=== PATIENT | female | born 1965 | race Caucasian/White ===

== ENCOUNTER 2016-11-08 15:45 | Inpatient (IN) | payer OTHER ==
[~2016-11-08] VITALS: Ht 162.6 cm; Wt 105.7 kg
--- NOTE | 2016-11-08 15:51 | NUR ---
PT STATES FRIDAY SHE FELT LIKE SHE PULLED SOMETHING IN HER SHOULDER WENT TO WALK IN AND WAS TOLD SHE HAS A MUSCLE SPRAIN. PT STATES TODAY SHE IS HAVING LOWER BACK PAIN.
--- NOTE | 2016-11-08 15:55 | NUR ---
PT WHEEELED TO ROOM 20 AWAITING PROVIDER EVAL
--- NOTE | 2016-11-08 16:11 | ED NECK/BACK PAIN COMPLAINT ---
History of Present Illness General Chief Complaint: Low Back Pain/Injury Stated Complaint: BACK PAIN Source: patient Exam Limitations: no limitations Vital Signs & Intake/Output Vital Signs & Intake/Output Vital Signs Date Time Temp Pulse Resp B/P B/P Pulse O2 O2 Flow FiO2 Mean Ox Delivery Rate 11/08 2331 97.5 73 20 140/88 93 Nasal 2.0L Cannula 11/08 2150 96.8 78 20 141/73 92 Nasal 2.0L Cannula 11/08 1920 97.6 88 20 134/73 92 Room Air 11/08 1846 97.1 86 18 149/90 99 11/08 1552 97.3 92 18 161/80 92 Room Air ED Intake and Output 11/09 0000 11/08 1200 Intake Total Output Total Balance Patient 233 lb Weight Weight Reported by Patient Measurement Method Allergies Coded Allergies: No Known Allergies (11/08/16) Reconcile Medications Amlodipine Besylate 5 MG TABLET 1 TAB PO DAILY HTN (Reported) Levothyroxine Sodium 50 MCG TABLET 1 TAB PO DAILY THYROID (Reported) Lisinopril 10 MG TABLET 1 TAB PO DAILY HTN (Reported) Naproxen Sodium 550 MG TABLET 1 TAB PO BID PAIN (Reported) Triage Note: PT STATES FRIDAY SHE FELT LIKE SHE PULLED SOMETHING IN HER SHOULDER WENT TO WALK IN AND WAS TOLD SHE HAS A MUSCLE SPRAIN. PT STATES TODAY SHE IS HAVING LOWER BACK PAIN. Triage Nurses Notes Reviewed? yes Onset: Gradual Duration: getting worse Timing: recent history Quality/Severity: severe Loss of Consciousness: no loss of consciousness HPI: Patient is a 51-year-old female with past medical history of hypothyroidism and hypertension who presents emergency room stating that on Friday 5 days ago patient was in the seated position reaching with her right upper extremity where she noted acute onset of right lateral neck and thoracic pain. Patient states that the pain was so severe that she presented to urgent care facility received chest x-ray findings with unremarkable results. Patient has been taking Naprosyn with no relief of symptoms. Patient now complains of radiating pain to the right side of her back and around her right rib region. Patient states that lumbar spine movements and deep inhalation make worse. Patient does smoke cigarettes. Denies any fever chills hemoptysis, Arm pain jaw pain anterior chest pain palpitations jaw pain diaphoresis nausea vomiting. Patient does state that the pain was so severe that it took her breath away Patient does admit to a cough however she does smoke (RALPH DELGADO) Past History Travel History Traveled to [place] past 21 day No Medical History Any Pertinent Medical History? see below for history Neurological: NONE EENT: NONE Cardiovascular: hypertension Respiratory: NONE Gastrointestinal: NONE Hepatic: NONE Renal: NONE Musculoskeletal: NONE Psychiatric: NONE Endocrine: hypothyroidism Blood Disorders: NONE Cancer(s): NONE ROSTER CLERK/Reproductive: NONE Surgical History Surgical History: non-contributory Psychosocial History What is your primary language [place]ib[place]ian Tobacco Use: Current Daily Use Daily Tobacco Use Amount/Type: => 5 Cigarettes daily ETOH Use: occasional use Illicit Drug Use: marijuana Family History Hx Contributory? No (RALPH DELGADO) Review of Systems Review of Systems Constitutional: Reports: no symptoms. Eyes: Reports: no symptoms. Ears, Nose, Throat, Mouth: Reports: no symptoms. Respiratory: Reports: see HPI. Denies: cough. Cardiovascular: Reports: see HPI. Gastrointestinal/Abdominal: Reports: no symptoms. Musculoskeletal: Reports: see HPI. Skin: Reports: no symptoms. Neurological/Psychological: Reports: no symptoms. All Other Systems: Reviewed and Negative (RALPH DELGADO) Physical Exam Physical Exam General Appearance: mild distress Neck: normal inspection, supple Comments: HEENT: Normal EENT exam, Neck: Supple, no lymphadenopathy, normal range of motion without pain or tenderness Back: NORMAL INSPECTION Cardiovascular: Regular rate and rhythms no murmurs rubs or gallops, normal JVP Respiratory: No respiratory distress.breath sounds clear to auscultation bilaterally Abdomen: Soft, nontender nondistended, no appreciable organomegaly. Normal bowel sounds. No ascites Extremity: No edema, no calf tenderness to palpation, normal and equal pulses. Neuro: Alert oriented x3, motor sensory normal, Skin: No appreciable rash on exposed skin, skin is warm and dry. Psych: Mood and affect is normal, memory and judgment is normal. Diagram Body: 1) Normal inspection, intercostal moderate point tenderness to the posterior and lateral ribs. Clear lungs to auscultation (RALPH DELGADO) Progress Differential Diagnosis: C spine injury, carotid dissection, cauda equina syn, herniated disc, myofascial strain, pyelo/UTI, sciatica, spinal cord inj, thoracic outlet syn, T/L spine injury, ureterolithiasis Plan of Care: Orders Procedure Date/time Status Heart Healthy Diet 11/09 B Active CBC WITHOUT DIFFERENTIAL 11/09 0600 Active BASIC ELECTROLYTES PLUS BUN&CR 11/09 0600 Active STREP PNEUMO URINARY ANTIGEN 11/08 2352 Active LEGIONELLA URINARY ANTIGEN 11/08 2352 Active Add-on Test (ER Only) 11/08 2250 Active TRC EVALUATION (GEN) 11/08 224 Active OXYGEN SETUP (GEN) 11/08 224 Active Pathway - chart 11/08 2248 Active House Staff 11/08 2248 Active Patient Data 11/08 2110 Active LOWER RESPIRATORY CULTURE 11/08 2012 Active Saline Lock 11/08 2000 Active Misc Message 11/08 2000 Active ED Holding Orders 11/08 2000 Active Vital Signs 11/08 2000 Active Code Status 11/08 2000 Active Admit to inpatient 11/09 1999 Active Add-on Test (ER Only) 11/08 1950 Active CULTURE,URINE 11/08 1800 Active BLOOD CULTURE 11/08 1800 Active URINALYSIS 11/08 1800 Complete THYROID STIMULATING HORMONE 11/08 1640 Complete PARTIAL THROMBOPLASTIN TIME 11/08 1640 Complete PROTHROMBIN TIME 11/08 1640 Complete LACTIC ACID 11/08 1640 Complete FREE T4 11/08 1640 Complete TROPONIN LEVEL 11/08 1622 Complete COMPREHENSIVE METABOLIC PANEL 11/08 1622 Complete CBC WITHOUT DIFFERENTIAL 11/08 1622 Complete EKG 11/08 1622 Active Intake & Output 11/08 1617 Active CHEST PHYSICAL THERAPY (GEN) 11/08 UNK Active VTE Mechanical Prophylaxis 11/08 UNK Active Vital Signs 11/08 UNK Active Current Medications Sig/Cherry Start time Last Medication Dose Stop Time Status Admin Azithromycin 500 MG Q24H 11/09 2044 AC (Zithromax) Sodium Chloride 250 ML (Normal Saline 0.9%) Ceftriaxone Sodium 1,000 MG Q24H 11/09 2044 AC (Rocephin) Amlodipine Besylate 5 MG DAILY 11/09 1000 AC (Norvasc) Lisinopril 10 MG DAILY 11/09 1000 AC (Prinivil) Levothyroxine Sodium 0.05 MG DAILY AC 11/09 0700 AC (Synthroid) Acetaminophen 650 MG Q6P PRN 11/08 2300 AC (Tylenol) Ibuprofen 600 MG Q6P PRN 11/08 2300 AC (Motrin) Morphine Sulfate 1 MG Q6P PRN 11/08 2300 AC (Morphine) Laboratory Tests 11/08/16 2300: Urine Color YEL, Urine Clarity CLEAR, Urine pH 5.5, Ur Specific [place] 1.010, Urine Protein 30 H, Urine Ketones 15 H, Urine Nitrite NEG, Urine Bilirubin NEG , Urine Urobilinogen 1.0, Ur Leukocyte Esterase NEG, Ur Microscopic SEDIMENT EXAMINED, Urine RBC RARE, Urine WBC 1-3 H, Ur Epithelial Cells FEW, Urine Bacteria RARE H, Urine Hemoglobin TRACE H, Urine Glucose NEG 11/08/16 1640: Anion Gap 15, Estimated GFR > 60, BUN/Creatinine Ratio 16.3, Glucose 128 H, Lactic Acid 1.2, Calcium 10.1, Total Bilirubin 1.4 H, AST 19, ALT 30, Alkaline Phosphatase 69, Troponin I < 0.01, Total Protein 7.1, Albumin 4.3, Globulin 2.8, Albumin/Globulin Ratio 1.5, TSH 3.570, Free T4 1.71, PT 14.1 H, INR 1.35 H, APTT 32, CBC w Diff MAN DIFF ORDERED, RBC 5.22, MCV 84.8, MCH 28.5, RDW 13.9, MPV 8.6, Gran % 88.1 H, Lymphocytes % 4.9 L, Monocytes % 6.9, Eosinophils % 0, Basophils % 0.1, Absolute Granulocytes 22.3 H, Segmented Neutrophils 83 H, Band Neutrophils 5, Absolute Lymphocytes 1.2, Lymphocytes 8 L, Monocytes 4, Absolute Monocytes 1.8 H, Absolute Eosinophils 0, Absolute Basophils 0, Platelet Estimate ADEQUATE, Normal RBC Morphology N, PUBS MCHC 33.5 Microbiology 11/09 2351 URINE ROUT: Legionella Antigen - ORD 11/09 2351 URINE ROUT: Streptococcus pneumoniae Antigen (M - ORD 11/08 2300 URINE ROUT: Urine Culture - RECD 11/08 2012 LOWER RESP: Respiratory Culture - ORD 11/08 2012 LOWER RESP: Gram Stain - ORD 11/08 182 BLOOD: Blood Culture - RECD 11/09 1819 BLOOD: Blood Culture - RECD Patient was given intramuscular morphine which significantly improved symptoms. Patient again resting comfortably at bedside. MY suspicion of patient FOR myocardial is low however evaluation of blood work and EKG and chest x-ray was provided to patient Patient did show significantly high 25,[address] scan of chest nontender and was ordered blood cultures and urine culture was ordered After CT scan was resulted there is concerns of significant pneumonia which most likely has caused the pleural effusion and the near complete lung collapse. Patient did have exacerbations of right-sided rib pain where she was administered dosing of morphine over patient subsequently became nauseous the second EPISODE of morphine Patient is in no respiratory distress. Discussed CT scan results and blood work with patient who agrees with admission and has no questions Patient will receive IV antibiotics and will most likely require a interventional radiology guided thoracocentesis for therapy and diagnostic value (RALPH DELGADO) Diagnostic Imaging: Viewed by Me: Radiology Read, CT Scan. Radiology Impression: acute abnormality Initial ED EKG: normal p-waves, normal QRS complex, normal sinus rhythm, NSR, 83 BPM Comments: PATIENT: CAROLINE SAM PRESENT AGE: 51 PATIENT ACCOUNT NO: [id number] : 64 LOCATION: [facility] ORDERING PHYSICIAN: RALPH WHARTON SERVICE DATE: 11/08/16 EXAM TYPE: RAD - XRY-RIBS UNILATERAL-RIGHT EXAMINATION: XR RIBS, RIGHT CLINICAL INFORMATION: Right-sided pain. COMPARISON: None TECHNIQUE: 3 views of the right ribs were obtained. FINDINGS: Heart appears mildly enlarged. Lung volumes are diminished. Patchy opacities in the bilateral lung bases right side greater than left, likely atelectasis. There is a [id number] sized right-sided pleural effusion. Left lung and pleural space appears clear. There is no pneumothorax. There is no pulmonary edema. Although mild edema is not excluded. Included osseous structures appear largely unremarkable. Osseous structures are unremarkable. Ribs are intact. No fractures are identified. There are postsurgical changes in the lower cervical spine. IMPRESSION: Low lung volumes with basilar atelectasis with right-sided effusion. No fractures are seen. DICTATED BY: DEONTE SHELBY MD DATE/TIME DICTATED:11/08/161656 RACK PUSHER:JADE (RALPH DELGADO) Departure Departure Disposition: STILL A PATIENT Condition: Stable Clinical Impression Primary Impression: Pneumonia Secondary Impressions: Lung collapse, Pleural effusion, Rib pain Referrals: HANK ALVES MD (PCP/Family) Departure Forms: Customer Survey General Discharge Information Admission Note Spoke With: ROBBIE BOWMAN MD Documentation of Exam: Documentation of any treatments & extenuating circumstances including Concerns Regarding Discharge (functional status, medication knowledge or non-compliance, living conditions, etc.) that warrant an admission rather than observation: [ DISCUSSED PT WITH DR. BOWMAN WHO AGREES WITH GEN MED ADMISSION FOR significant pneumonia and pleural effusion and lung collapse in which patient requires IV antibiotics, pain management, thoracocentesis repeat labs and outpatient treatment would be medically harmful] (ARNULFO WHARTON,RALPH) PA/ELECTRONIC PUBLISHING SPECIALIST Co-Sign Statement Statement: ED Attending supervision documentation- [] I saw and evaluated the patient. I have also reviewed all the pertinent lab results and diagnostic results. I agree with the findings and the plan of care as documented in the PA's/ELECTRONIC PUBLISHING SPECIALIST's documentation. [x] I have reviewed the ED Record and agree with the PA's/ELECTRONIC PUBLISHING SPECIALIST's documentation. [] Additions or exceptions (if any) to the PAs/ELECTRONIC PUBLISHING SPECIALIST's note and plan are summarized below: [] (RAFAEL HER,POLLY Hollins)
--- NOTE | 2016-11-08 16:15 | NUR ---
AKIKO ARREDONDO AT BEDSIDE TO EVAL PT
--- NOTE | 2016-11-08 16:26 | NUR ---
PT LEFT FOR RADIOLOGY REQUESTED TO AMBULATE
--- NOTE | 2016-11-08 16:32 | NUR ---
PT BACK FROM RADIOLOGY, LABS TO BE DRAWN
--- NOTE | 2016-11-08 16:47 | NUR ---
PT MEDICATED ORDERED
[2016-11-08 17:02] LABS: ABSOLUTE BASOPHIL COUNT 0 /CUMM (0.0-0.2); ABSOLUTE EOSINOPHIL COUNT 0 /CUMM (0.0-0.7); ABSOLUTE GRANULOCYTE CT 22.3 /CUMM (1.4-6.5); ABSOLUTE LYMPH COUNT 1.2 /CUMM (1.2-3.4); ABSOLUTE MONOCYTE COUNT 1.8 /CUMM (0.10-0.60); BASOPHIL % 0.1 % (0.0-2.0); EOSINOPHIL % 0 % (0-5); GRANULOCYTE % 88.1 % (42.2-75.2); HEMATOCRIT 44.3 % (37-47); MEAN CORPUSCULAR HGB 28.5 PG (27.0-31.0); MEAN CORPUSCULAR HGB CONC 33.5 G/DL (33.0-37.0); MEAN CORPUSCULAR VOLUME 84.8 FL (81.0-99.0); MEAN PLATELET VOLUME 8.6 FL (7.4-10.4); PLATELET COUNT 329 /CUMM (130-400); RBC DISTRIBUTION WIDTH 13.9 % (11.5-14.5); RED BLOOD CELL CT 5.22 /CUMM (4.20-5.40); WHITE BLOOD CELL COUNT 25.3 /CUMM (4.8-10.8)
--- NOTE | 2016-11-08 17:17 | RADIOLOGY REPORT ---
EXAMINATION: XR RIBS, RIGHT CLINICAL INFORMATION: Right-sided pain. COMPARISON: None TECHNIQUE: 3 views of the right ribs were obtained. FINDINGS: Heart appears mildly enlarged. Lung volumes are diminished. Patchy opacities in the bilateral lung bases right side greater than left, likely atelectasis. There is a [id number]-oklwmync sized right-sided pleural effusion. Left lung and pleural space appears clear. There is no pneumothorax. There is no pulmonary edema. Although mild edema is not excluded. Included osseous structures appear largely unremarkable. Osseous structures are unremarkable. Ribs are intact. No fractures are identified. There are postsurgical changes in the lower cervical spine. IMPRESSION: Low lung volumes with basilar atelectasis with right-sided effusion. No fractures are seen.
[2016-11-08] MEDS ORDERED: NAPROXEN SODIU550 M1 PO (17:34)
--- NOTE | 2016-11-08 17:34 | NUR ---
PT STS STIL TENDER BUT TOLERABLE AT PRESENT
[2016-11-08] MEDS ORDERED: AMLODIPINE BESYL5 M1 PO (17:35)
[2016-11-08] MEDS ORDERED: LISINOPRIL10 M1 PO (17:35)
[2016-11-08] MEDS ORDERED: LEVOTHYROXINE50 MCG PO (17:35)
--- NOTE | 2016-11-08 17:40 | NUR ---
PT HAD INITINALLY REFUSED TO CHANGE INTO [place] AND NOW THAT SHE WAS MADE AWARE THAT SHE WILL BE ADMITTED SHE INSIST TO STAY IN [place]. PA WAS INFORMED AND OK FOR NOW
--- NOTE | 2016-11-08 19:20 | NUR ---
PT MEDICATED ORDERED NOTED TO BE DIAPHORETIC BUT NOT FEVERISH PT STS SHE IS PRE MENOPAUSAL
--- NOTE | 2016-11-08 19:23 | CT SCAN REPORT ---
EXAMINATION: CT CHEST abdomen and pelvis WITH CONTRAST CLINICAL INFORMATION: Right-sided chest pain and cough. COMPARISON: None. TECHNIQUE: Multidetector volumetric CT imaging of the chest abdomen and pelvis was obtained after the uneventful intravenous administration of 94 mL of Optiray 320 intravenous contrast without immediate adverse reactions. Axial MIP volume rendering provided. Sagittal and coronal reformatted images were obtained. DLP: 1262 mGy-cm FINDINGS: There is elevation of the right hemidiaphragm. There is a large right-sided pleural effusion with associated near-complete right lower lobe collapse, moderate right middle lobe collapse, and a lesser degree of right upper lobe collapse. Underlying infiltrate is not excluded. Clinical correlation recommended. No central obstructing mass is seen. There is a 6 mm indeterminate noncalcified right upper lobe pulmonary nodule image 21 series 2. There is no lower cervical, mediastinal, or hilar lymphadenopathy identified. By size criteria although there are multiple small mediastinal lymph nodes, the largest just anterior to the trachea above the bifurcation measuring 8 mm short axis dimension. A similar sized subcarinal node is identified with a few other scattered smaller nodes. 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 There is diffuse hepatic steatosis. The spleen, pancreas, gallbladder, kidneys and adrenal glands appear unremarkable. There is a small sliding hiatal hernia suggested. Ligament of Treitz is in its normal anatomic location. Small bowel appears unremarkable. There are postsurgical changes suggesting a previous segmental resection of the sigmoid colon with a few scattered sigmoid colon diverticula and a distal descending colon diverticula without evidence of acute diverticulitis. The cecum is on a long mesentery situated anterior to the transverse colon above the level of the umbilicus and just inferior to the lower portion of the right lower liver. The appendix is not definitively identified, however I see no evidence of an acute appendicitis. There is a small to moderate-sized periumbilical hernia to the left of midline containing only mesenteric fat. There is no intraperitoneal free fluid, lymphadenopathy, or inguinal hernias. Uterus and adnexa appear unremarkable for the patient's age. No aggressive osseous lesions are seen. Patient is status post instrumented fusion lower cervical region. There is mild spondylosis. IMPRESSION: 1. Right-sided pleural effusion with near-complete right lower lobe collapse. Moderate right middle lobe collapse, and mild right upper lobe collapse. Effusion is indeterminate in etiology. 2. Indeterminate solitary 6 mm pulmonary nodules, other nodules in the collapsed portions of the right lung are not excluded. 3. Small indeterminate mediastinal nodes. 4. Hepatic steatosis. 5. Colonic diverticulosis. 6. Wandering cecum. 7. Periumbilical hernia. 8. Otherwise largely unremarkable exam. Reference: The Fleischner Society recommendations for management of incidentally detected pulmonary nodules in adults age 35 and greater are based on average nodule size and patient risk category. The recommendations do not apply to lung cancer screening, patients with immunosuppression, or patients with known primary cancer. Single solid nodule average size < 6 mm: Low Risk Patient: No routine follow-up. High Risk Patient: Optional CT at 12 months. Certain patients at high risk with suspicious nodule morphology, upper lobe location, or both may warrant 12-month follow-up. Single solid nodule average size 6-8 mm: Low Risk Patient: CT at 6-12 months; then consider CT at 18-24 months. High Risk Patient: CT at 6-12 months, then CT at 18-24 months. Certain patients at high risk with suspicious nodule morphology, upper lobe location, or both may warrant 12-month follow-up.
--- NOTE | 2016-11-08 19:30 | NUR ---
PT FEELING NAUSEOUS. AKIKO ROSAS S AWARE.
--- NOTE | 2016-11-08 19:46 | NUR ---
AKIKO Meneses AT BEDSIDE TO REEVAL AND UPDATE PT ON POC
[2016-11-08 20:31] LABS: PT 14.1 SEC (9.4-12.5); PTT 32 SEC (25-37)
--- NOTE | 2016-11-08 21:00 | NUR ---
PT MEDICATED ORDERED AHS IV NS AND ZITHRO
--- NOTE | 2016-11-08 21:16 | History & Physical ---
DORIS HER,[facility] 11/08/162114: General Information and HPI MD Statement: I have seen and personally examined CAROLINE SAM and documented this H&P. The patient is a 51 year old F who presented with a patient stated chief complaint of [low back pain]. Source of Information: patient Exam Limitations: no limitations History of Present Illness: Ms. Sam is 51 year old female with past medical history significant for hypertension, hypothyroidism, current smoker, right ear nerve deafness, diverticulitis status post colon resection who presented to ED with chief complaint of low back pain. Patient reported that on last Friday while she was trying to reach out to something had sudden onset of sharp pain over the left shoulder blade, went to walk-in clinic and had chest x-ray that didn't reveal any fracture or intrathoracic abnormality and was discharged on naproxen. Patient reported that symptoms presist, pain move to bilateral low back constant increased in intensity sometimes to be sharp 5-7 associated with shortness of breath on rest to level disturb her talking in full sentences or walking, pleuritic pain, night sweats, productive cough of clear sputum denied blood. Patient denied any chest pain, palpitation, fever, chills, headache, blurry vision, abdominal pain, nausea or vomiting, diarrhea or constipation, unintentional weight loss. Denied any history of sick contact, history of travels. Patient reported history of sinusitis 1 month ago that was treated with Augmentin, reported ear fullness sensation over the last month, denied any flulike symptoms. Patient is a current smoker, started smoking at age 16, 10-12 cigarettes per day. Allergies/Medications Allergies: Coded Allergies: No Known Allergies (11/08/16) Home Med list Amlodipine Besylate 5 MG TABLET 1 TAB PO DAILY HTN (Reported) Levothyroxine Sodium 50 MCG TABLET 1 TAB PO DAILY THYROID (Reported) Lisinopril 10 MG TABLET 1 TAB PO DAILY HTN (Reported) Naproxen Sodium 550 MG TABLET 1 TAB PO BID PAIN (Reported) Past History Travel History Traveled to [place] past 21 day No Medical History Neurological: NONE EENT: NONE Cardiovascular: hypertension Respiratory: NONE Gastrointestinal: NONE Hepatic: NONE Renal: NONE Musculoskeletal: NONE Psychiatric: NONE Endocrine: hypothyroidism Blood Disorders: NONE Cancer(s): NONE GENERAL PRACTITIONER/Reproductive: NONE Surgical History Surgical History: non-contributory, colon resection clavicle fusion Past Family/Social History Psychosocial History ETOH Use: occasional use Illicit Drug Use: marijuana Review of Systems Review of Systems Constitutional: Reports: see HPI. Exam & Diagnostic Data Last 24 Hrs of Vital Signs/I&O Vital Signs Date Time Temp Pulse Resp B/P B/P Pulse O2 O2 Flow FiO2 Mean Ox Delivery Rate 11/08 2331 97.5 73 20 140/88 93 Nasal 2.0L Cannula 11/08 2150 96.8 78 20 141/73 92 Nasal 2.0L Cannula 11/08 1920 97.6 88 20 134/73 92 Room Air 11/08 1846 97.1 86 18 149/90 99 11/08 1552 97.3 92 18 161/80 92 Room Air Intake & Output 11/09 0800 11/09 0000 11/08 1600 Intake Total Output Total Balance Patient 105.687 kg Weight Weight Reported by Patient Measurement Method Physical Exam General Appearance Alert, Oriented X3, Cooperative, No Acute Distress Skin No Rashes, No Breakdown, No Significant Lesion Skin Temp/Moisture Exam: Warm/Dry HEENT Atraumatic, PERRLA, EOMI, Mucous Membr. moist/pink Neck Supple, No JVD Lymphatic no cervical lymphadenopathy Cardiovascular Regular Rate, Normal S1, Normal S2, No Murmurs Lungs Right 4th intercostal space dull to percusion decrease air entery of right side no wheeze or crackles Abdomen Normal Bowel Sounds, Soft, No Tenderness, No Hepatospenomegaly, No Masses, umblical hernia non tender, no skin changes, reproducable Neurological Normal Speech, Strength at 5/5 X4 Ext, Normal Tone, Sensation Intact, Cranial Nerves 3-12 NL, Reflexes 2+ Extremities No Clubbing, No Cyanosis, No Edema, Normal Pulses, No Tenderness/ Swelling Last 24 Hrs of Labs/Javon: Laboratory Tests 11/08/16 2300: Urine Color YEL, Urine Clarity CLEAR, Urine pH 5.5, Ur Specific Underwood 1.010, Urine Protein 30 H, Urine Ketones 15 H, Urine Nitrite NEG, Urine Bilirubin NEG , Urine Urobilinogen 1.0, Ur Leukocyte Esterase NEG, Ur Microscopic SEDIMENT EXAMINED, Urine RBC RARE, Urine WBC 1-3 H, Ur Epithelial Cells FEW, Urine Bacteria RARE H, Urine Hemoglobin TRACE H, Urine Glucose NEG 11/08/16 1640: Anion Gap 15, Estimated GFR > 60, BUN/Creatinine Ratio 16.3, Glucose 128 H, Lactic Acid 1.2, Calcium 10.1, Total Bilirubin 1.4 H, AST 19, ALT 30, Alkaline Phosphatase 69, Troponin I < 0.01, Total Protein 7.1, Albumin 4.3, Globulin 2.8, Albumin/Globulin Ratio 1.5, TSH 3.570, Free T4 1.71, PT 14.1 H, INR 1.35 H, APTT 32, CBC w Diff MAN DIFF ORDERED, RBC 5.22, MCV 84.8, MCH 28.5, RDW 13.9, MPV 8.6, Gran % 88.1 H, Lymphocytes % 4.9 L, Monocytes % 6.9, Eosinophils % 0, Basophils % 0.1, Absolute Granulocytes 22.3 H, Segmented Neutrophils 83 H, Band Neutrophils 5, Absolute Lymphocytes 1.2, Lymphocytes 8 L, Monocytes 4, Absolute Monocytes 1.8 H, Absolute Eosinophils 0, Absolute Basophils 0, Platelet Estimate ADEQUATE, Normal RBC Morphology N, PUBS MCHC 33.5 Microbiology 11/09 2351 URINE ROUT: Legionella Antigen - ORD 11/09 2351 URINE ROUT: Streptococcus pneumoniae Antigen (M - ORD 11/08 230 URINE ROUT: Urine Culture - RECD 11/08 2012 LOWER RESP: Respiratory Culture - ORD 11/08 2012 LOWER RESP: Gram Stain - ORD 11/08 182 BLOOD: Blood Culture - RECD 11/09 1819 BLOOD: Blood Culture - RECD Diagnostic Data EKG Results NSR, WI 140, QTC 407 CXR Results IMPRESSION: Low lung volumes with basilar atelectasis with right-sided effusion. No fractures are seen. Other Results CT Chest, abdomen, pelvis with IV contrast IMPRESSION: 1. Right-sided pleural effusion with near-complete right lower lobe collapse. Moderate right middle lobe collapse, and mild right upper lobe collapse. Effusion is indeterminate in etiology. 2. Indeterminate solitary 6 mm pulmonary nodules, other nodules in the collapsed portions of the right lung are not excluded. 3. Small indeterminate mediastinal nodes. 4. Hepatic steatosis. 5. Colonic diverticulosis. 6. Wandering cecum. 7. Periumbilical hernia. 8. Otherwise largely unremarkable exam. Assessment/Plan Assessment: Ms. Sam is 51 year old female with past medical history significant for hypertension, hypothyroidism, current smoker, right ear nerve deafness, diverticulitis status post colon resection who presented to ED with chief complaint of low back pain. On admission Vital signs temperature 97.3, pulse 92, blood pressure 161/80, respiratory rate 18 saturating 92%. Pertinent WBC 25.3, H&H 14.8/44.3, platelet 329, sodium 133, potassium 5, BUN/ creatinine 13/0.8, lactic acid 1.2, INR 1.35 Chest x-ray and CT chest, abdomen and pelvis with IV contrast were obtained, please see above for results In ED, patient received morphine 6 mg, Zofran for nausea, azithromycin and ceftriaxone, 500 mL bolus of normal saline. Problem list #Community-acquired pneumonia #Right side pleural effusion #Lung collapse #Leukocytosis #Pulmonary nodules #Hypertension #Hypothyroidism #History of smoking Plan -Admit to general medical floor -IR consultation for thoracocentesis therapeutic and diagnostic -Differential diagnosis for pleural effusion (infectious, inflammatory, malignancy) complication of pneumonia given leukocytosis, symptoms such as shortness of breath, night sweats, malignancy giving history of smoking and lung nodule, hypothyroidism -Pleural fluid cytology, culture, protein, glucose, LDH -Consider obtaining serum LDH -Hold off anticoagulation, baseline INR 1.35 -TSH, free T4 -Continue ceftriaxone, azithromycin -CBC, BMP in a.m. -Vitals every shift -Continue oxygen supplementation 2 L for comfort -Pain management acetaminophen for mild pain, NSAIDs for moderate pain, morphine for severe pain -Consider lidocaine patch for persistent pain -Nicotine patch -Pulmonary consultation in a.m. -Continue amlodipine 5 mg, lisinopril 10 mg -Continue Synthroid 50 g -Right heart healthy -DVT prophylaxis Alps -Code full As Ranked By This Provider Problem List: 1. Pneumonia 2. Lung collapse 3. Rib pain 4. Pleural effusion Core Measures/Miscellaneous Acute Coronary Syndrome ACS Diagnosis: No Cerebrovascular Accident CVA/TIA Diagnosis: No Congestive Heart Failure CHF Diagnosis: No VTE (View Protocol) VTE Risk Factors: Age > 40 No [facility] VTE prophylaxis d/t: No contraindications No VTE Pharm Prophylaxis d/t: No contraindications VTE Diagnosis: No VTE Type: NONE VTE Confirmed by (Test): NONE Sepsis (View Protocol) Severe Sepsis Present: No Septic Shock Septic Shock Present: No Miscellaneous Documentation Attending Case Discussed With: ROBBIE BOWMAN MD Primary Care Physician: HANK ALVES MD Patient sees these Specialists none PCP Level of Patient Care: General Medicine JACOBO COLMENARES MD,KARRIE 06/23/17 2556: Resident Review Statement Resident Statement: examined this patient, discussed with help desk internship, agreed with help desk internship, reviewed EMR data (avail) Other Findings: 51-year-old female current smoker, with past medical history significant for hypothyroidism, history of diverticulitis status post bowel resection, hypertension, history of recurrent ear infections, came to emergency department with chief complaint of right lateral neck and thoracic pain for the last 5 days. Pain started radiating to the right side of her back and around her right rib region. Patient stated that the pain was so severe that she presented to urgent care facility and had an x-ray with unremarkable results. She was prescribed naproxen but her symptoms did not improve. Pain is pleuritic in nature and increases with movement. She also had occasional night sweats along with intentional weight loss as she's on Weight [employer]. Vitals in emergency department patient afebrile, no tachypnea, no tachycardia, systolic blood pressure ranging from 134-161 and diastolic 73-90, oxygen saturation of 90-99% on room air. On examination, patient was alert and oriented to time person and place, diaphoretic in mild distress lying in the bed. S1 and S2 audible, regular rhythm, lung examination elicited dull percussion sound, decreased air entry at the lung bases on auscultation, surgical scar lam on right side of the neck, umbilical hernia, audible bowel sounds, distended abdomen at baseline, no bilateral lower extremity edema, no JVD, grossly intact neurological examination. Labs are significant for leukocytosis white count of 25.3, bands 5, serum electrolytes showed hyponatremia 133, carbon dioxide 21, glucose 128, total bilirubin 1.4, troponin less than 0.01, INR of 1.35, UA pending, patient pancultured. EKG showed sinus rhythm heart rate in 80s, QTC 407 Ribs x-ray showed, Low lung volumes with basilar atelectasis with right-sided effusion. No fractures are seen. CT chest abdomen and pelvis with contrast showed, Right-sided pleural effusion with near-complete right lower lobe collapse. Moderate right middle lobe collapse, and mild right upper lobe collapse. Effusion is indeterminate in etiology. Indeterminate solitary 6 mm pulmonary nodules, other nodules in the collapsed portions of the right lung are not excluded. Patient was admitted on general medicine floor for the management of following problems #1 Acute hypoxemic respiratory insufficiency #2 Multilobar community-acquired pneumonia #3 Right-sided pleural effusion #4 Mild right upper lobe, moderate right middle lobe, complete right lower lobe collapse #5 Leukocytosis secondary to pneumonia Community-acquired pneumonia/right-sided pleural effusion / right lower lobe, moderate right middle lobe, mild right upper lobe lung collapse - Admit to General Medicine - Vitals q Shift - Continous pulse oximetry - Check troponin and EKG - Send sputum cultures - Follow blood cultures x 2 - Check Legionella and strep Antigen - ABxs for community-acquired PNA - Chest physical therapy - TRC nebs as needed - Tap for pleural effusion in a.m. by interventional radiology - Fluid analysis studies - Keep right side of the lung up and Left side as dependent - Pulmonology Consult History of hypertension Continue with lisinopril and amlodipine History of hypothyroidism Will check thyroid function tests to rule out one of the possible causes of effusion, continue with home dose of thyroxine Patient is full code Patient is on pain management Patient is on ALPS for DVT prophylaxis Patient is on heart healthy diet GRACIE HER, [facility] 11/09/16 0016: Attending MD Review Statement Attending Statement Attending MD Statement: examined this patient, discuss w/resident/PA/AIRPLANE TECHNICIAN, agreed w/resident/PA/AIRPLANE TECHNICIAN, discussed with family Attending Assessment/Plan: 51 yo morbidly obese F smoker, with h/o HTN, hypothyroidism, recurrent ear and sinus infections, 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 5 days ago while bending and reaching out to something, patient started having right upper back and shoulder pain. She went to an Urgent Care clinic, CXR was negative and she was advised to take naproxen for a muscle sprain. Gradually, she developed productive cough (clear phlegm), night sweats, chills, orthopnea and exertional dyspnea (I could not catch my breath). The pain radiated around right rib region, now extending to mid to lower back, worse with inspiration. Denies chest pain, palpitations, lightheadedness. Reprots intentional weight loss. Denies sick contacts or recent travel. Vitals stable, sats 92% on 2L. Exam: AAO, diaphoretic, MMM, mild distress, no lymphadenopathy, Chest dullness to percussion upto 2/3rd right sided lung chavez , with absent breath sounds, no friction rub; left sided breath sounds clear. Heart S1S2 regular. Abdomen: soft, NT, umbilical hernia+. LE: no edema. Otoscopic exam was negative. Labs: WBC 25.3, no bands, INR 1.35, Na 133, bicarb 21, glucose 128, lactic acid 1.2, T. Bili 1.4, trop neg, thyroid functions normal. UA proteinuria. EKG: SR. Ribs Xray: bibasilar atelectasis with right sided effusion, no rib fractures. CT chest: large right sided pleural effusion with near-complete RLL collapse, moderate RML collapse, and a lesser degree of RUL collapse. No obstructing mass. RUL lung nodule. 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 Mediastinal LN. CT abd/pelvis: hepatic steatosis, hiatal hernia, periumbilical hernia. 1. Large right pleural effusion with lung collapse, cannot rule out underlying consolidation. GM admit, TRC nebs, panculture, urine legionella and strep Ag, IV ceftriaxone and azithro, plan for IR guided diagnostic and therapeutic thoracentesis, Pulm consult in AM. O2 to keep sats > 92%. Smoking cessation counseling, nicotine patch. Pain management. DVT ppx Alps. Full code.
--- NOTE | 2016-11-08 22:00 | NUR ---
HOUSE STAFF AT BEDSIDE WITH PT TO EVAL PT WAS ALSO PLACED ON OXYGEN PRIOR FOR COMFORT NC 2L
--- NOTE | 2016-11-08 22:26 | NUR ---
CAROLINE SAM Nurse Note by: ISABELLE LAURA I agree with the JUICE SCALEMAN findings/evaluation of this patient's condition. Entered by: ISABELLE LAURA Date: 11/08/16 Time: 1
--- NOTE | 2016-11-08 22:36 | NUR ---
PT ASSIGNED TO ROOM 229 BED 2
--- NOTE | 2016-11-08 22:37 | NUR ---
NURSE WILL CALL ME BACK IN FEW MINUTES
--- NOTE | 2016-11-08 22:54 | NUR ---
REPORT GIVEN TO NURSE GENIE AND SHE TOOK REPORT
[2016-11-08 23:31] VITALS: BP 140/88
--- NOTE | 2016-11-09 01:58 | Admission Certification ---
Admission Certification Certification Statement - As attending physician, I certify that at the time of - admission, based on clinical presentation, severity of - symptoms, need for further diagnostic testing and - therapeutic interventions, and risk of adverse outcomes - without in-hospital treatment, in my clinical assessment, - this patient requires an acute hospital stay for a minimum - of two nights or longer. I have also considered psychsocial - factors such as support system, advanced age, financial - issues, cognitive issues, and failed out-patient treatments, - past re-admission history, safety of patient, and lack of - compliance as applicable. Specific rationale supporting this admission is: Large right sided effusion with underlying lung collapse.
[2016-11-09 06:37] VITALS: BP 130/60
[2016-11-09 08:21] LABS: ABSOLUTE BASOPHIL COUNT 0 /CUMM (0.0-0.2); ABSOLUTE EOSINOPHIL COUNT 0 /CUMM (0.0-0.7); ABSOLUTE GRANULOCYTE CT 22.8 /CUMM (1.4-6.5); ABSOLUTE LYMPH COUNT 1.1 /CUMM (1.2-3.4); ABSOLUTE MONOCYTE COUNT 2.2 /CUMM (0.10-0.60); BASOPHIL % 0.2 % (0.0-2.0); EOSINOPHIL % 0.1 % (0-5); GRANULOCYTE % 87.2 % (42.2-75.2); HEMATOCRIT 41.2 % (37-47); MEAN CORPUSCULAR HGB 28.8 PG (27.0-31.0); MEAN CORPUSCULAR VOLUME 87.2 FL (81.0-99.0); MEAN PLATELET VOLUME 9.1 FL (7.4-10.4); PLATELET COUNT 286 /CUMM (130-400); RBC DISTRIBUTION WIDTH 13.9 % (11.5-14.5); RED BLOOD CELL CT 4.72 /CUMM (4.20-5.40); WHITE BLOOD CELL COUNT 26.1 /CUMM (4.8-10.8)
--- NOTE | 2016-11-09 09:06 | PN- Housestaff ---
ROXANN ZULUAGA 11/09/16 0906: Subjective Follow-up For: #Community-acquired pneumonia #Right side pleural effusion #Lung collapse #Leukocytosis #Pulmonary nodules #Hypertension #Hypothyroidism #History of smoking Complaints: pain scale (0-10) Subjective: Patient was seen and examined this morning. She is alert awake and oriented to time place and person. No acute events noticed overnight. Patient continues to report shortness of breath. Continues to report mild chest discomfort on right side. However denies any pleuritic chest pain. Denies any fever, chills. Continues to report ongoing cough associated with sputum production. Also reports night sweats. Vitals stable afebrile, heart rate 80, respiratory rate 20, blood pressure 130/ 70, saturating at 94 on 2 L nasal cannula Review of Systems Constitutional: Reports: see HPI. Objective Last 24 Hrs of Vital Signs/I&O Vital Signs Date Time Temp Pulse Resp B/P B/P Pulse O2 O2 Flow FiO2 Mean Ox Delivery Rate 11/09 1123 Nasal 2.0L Cannula 11/09 0905 79 130/60 11/09 0905 79 130/60 11/09 0800 92 Nasal 2.0L Cannula 11/09 0637 97.6 79 20 130/60 92 Nasal 2.0L Cannula 11/09 0000 94 Nasal 2.0L Cannula 11/08 2331 97.5 73 20 140/88 93 Nasal 2.0L Cannula 11/08 2150 96.8 78 20 141/73 92 Nasal 2.0L Cannula 11/08 1920 97.6 88 20 134/73 92 Room Air 11/08 1846 97.1 86 18 149/90 99 11/08 1552 97.3 92 18 161/80 92 Room Air Intake & Output 11/09 1600 11/09 0800 11/09 0000 Intake Total 610 Output Total Balance 610 Intake, IV 10 Intake, Oral 600 Patient 105.687 kg Weight Physical Exam General Appearance: Alert, Oriented X3, Cooperative, No Acute Distress Skin: No Rashes, No Breakdown HEENT: Atraumatic, PERRLA, EOMI Neck: Supple, No JVD Lymphatic: Cervical nl Cardiovascular: Normal S1, Normal S2 Lungs: dec bs right side Abdomen: Normal Bowel Sounds, Soft, No Tenderness Extremities: No Clubbing, No Cyanosis, No Edema Vascular: Normal Pulses, Pulses Symmetrical Current Medications: Current Medications Sig/Cherry Start time Last Medication Dose Route Stop Time Status Admin Acetaminophen 650 MG Q6P PRN 11/08 2300 AC PO Albuterol Sulfate 3 ML BID 11/09 1137 AC 11/09 INH 1137 Amlodipine Besylate 5 MG DAILY 11/09 1000 AC 11/09 PO 0905 Azithromycin 500 MG Q24H 11/09 2044 AC Sodium Chloride 250 ML IV Azithromycin 500 MG ONCE ONE 11/09 1999 AR 11/08 Sodium Chloride 250 ML IV 11/08 Ceftriaxone Sodium 1,000 MG Q24H 11/09 2044 AC IV Ceftriaxone Sodium 0 .STK-MED ONE 11/08 2042 DC .ROUTE Ceftriaxone Sodium 1,000 MG ONCE ONE 11/09 1999 DC 11/08 IV 11/08 Ibuprofen 600 MG Q6P PRN 11/08 2300 AC 11/09 PO 1212 Levothyroxine Sodium 0.05 MG DAILY AC 11/09 0700 AC 11/09 PO 0518 Lisinopril 10 MG DAILY 11/09 1000 11/09 PO 0905 Morphine Sulfate 1 MG Q6P PRN 11/08 2300 AC 11/09 IV 09 Morphine Sulfate 0 .STK-MED ONE 11/09 1915 DC .ROUTE Morphine Sulfate 4 MG ONCE ONE 11/08 1914 DC 11/08 IV 11/09 1915 192 Morphine Sulfate 0 .STK-MED ONE 11/08 165 DC .ROUTE Morphine Sulfate 6 MG ONCE ONE 11/08 1630 DC 11/08 IM 11/08 1631 1647 Ondansetron HCl 4 MG ONCE ONE 11/08 2044 DC 11/08 IV 11/08 2045 1930 Ondansetron HCl 0 .STK-MED ONE 11/08 1930 DC .ROUTE Sodium Chloride 1,000 ML BOLUS ONE 11/08 2114 DC 11/08 IV 11/084 2114 Last 24 Hrs of Lab/Javon Results Last 24 Hrs of Labs/Mics: Laboratory Tests 11/09/16 0640: Anion Gap 11, Estimated GFR > 60, BUN/Creatinine Ratio 18.3, Lactate Dehydrogenase 532, CBC w Diff MAN DIFF ORDERED, RBC 4.72, MCV 87.2, MCH 28.8, RDW 13.9, MPV 9.1, Gran % 87.2 H, Lymphocytes % 4.3 L, Monocytes % 8.2, Eosinophils % 0.1, Basophils % 0.2, Absolute Granulocytes 22.8 H, Segmented Neutrophils 74, Band Neutrophils 10 H, Absolute Lymphocytes 1.1 L, Lymphocytes 6 L, Monocytes 10 H, Absolute Monocytes 2.2 H, Absolute Eosinophils 0, Absolute Basophils 0, Platelet Estimate ADEQUATE, Normocytic RBCs VERIFIED, Normochromic RBCs VERIFIED, PUBS MCHC 33.0 11/08/16 2300: Urine Color YEL, Urine Clarity CLEAR, Urine pH 5.5, Ur Specific [place] 1.010, Urine Protein 30 H, Urine Ketones 15 H, Urine Nitrite NEG, Urine Bilirubin NEG , Urine Urobilinogen 1.0, Ur Leukocyte Esterase NEG, Ur Microscopic SEDIMENT EXAMINED, Urine RBC RARE, Urine WBC 1-3 H, Ur Epithelial Cells FEW, Urine Bacteria RARE H, Urine Hemoglobin TRACE H, Urine Glucose NEG 11/08/16 1640: Anion Gap 15, Estimated GFR > 60, BUN/Creatinine Ratio 16.3, Glucose 128 H, Lactic Acid 1.2, Calcium 10.1, Total Bilirubin 1.4 H, AST 19, ALT 30, Alkaline Phosphatase 69, Troponin I < 0.01, Total Protein 7.1, Albumin 4.3, Globulin 2.8, Albumin/Globulin Ratio 1.5, TSH 3.570, Free T4 1.71, PT 14.1 H, INR 1.35 H, APTT 32, CBC w Diff MAN DIFF ORDERED, RBC 5.22, MCV 84.8, MCH 28.5, RDW 13.9, MPV 8.6, Gran % 88.1 H, Lymphocytes % 4.9 L, Monocytes % 6.9, Eosinophils % 0, Basophils % 0.1, Absolute Granulocytes 22.3 H, Segmented Neutrophils 83 H, Band Neutrophils 5, Absolute Lymphocytes 1.2, Lymphocytes 8 L, Monocytes 4, Absolute Monocytes 1.8 H, Absolute Eosinophils 0, Absolute Basophils 0, Platelet Estimate ADEQUATE, Normal RBC Morphology N, PUBS MCHC 33.5 Microbiology 11/09 1205 LOWER RESP: Respiratory Culture - RES 11/09 120 LOWER RESP: Gram Stain - RES 11/09 499 URINE ROUT: Legionella Antigen - COMP 11/09 499 URINE ROUT: Streptococcus pneumoniae Antigen (M - COMP 11/09 322 BODY FLUID: Body Fluid Culture - COLB 11/09 322 BODY FLUID: Gram Stain - COLB 06/23 2300 URINE ROUT: Urine Culture - RES 11/08 1824 BLOOD: Blood Culture - RECD 11/09 1819 BLOOD: Blood Culture - RECD Assessment/Plan Assessment: Ms. Haney is 51 year old female with past medical history significant for hypertension, hypothyroidism, current smoker, right ear nerve deafness, diverticulitis status post colon resection who presented to ED with chief complaint of right lateral neck and thoracic chest pain for the last 5 days. Patient stated that the pain was so severe that she presented to urgent care facility and had an x-ray with unremarkable results. She was prescribed naproxen but her symptoms did not improve. Pain is pleuritic in nature and increases with movement. On admission Vital signs temperature 97.3, pulse 92, blood pressure 161/80, respiratory rate 18 saturating 92%. Pertinent WBC 25.3, H&H 14.8/44.3, platelet 329, sodium 133, potassium 5, BUN/ creatinine 13/0.8, lactic acid 1.2, INR 1.35. Ribs x-ray showed, Low lung volumes with basilar atelectasis with right-sided effusion. No fractures are seen. CT chest abdomen and pelvis with contrast showed, Right-sided pleural effusion with near-complete right lower lobe collapse. Moderate right middle lobe collapse, and mild right upper lobe collapse. Effusion is indeterminate in etiology. Indeterminate solitary 6 mm pulmonary nodules, other nodules in the collapsed portions of the right lung are not excluded. Problem list #Community-acquired pneumonia #Right side pleural effusion #Lung collapse #Leukocytosis #Pulmonary nodules #Hypertension #Hypothyroidism #History of smoking Multilobar Community-acquired pneumonia/acute hypoxic respiratory insufficiency Patient presented to Hospital with ongoing chest pain, shortness of breath, cough associated with sputum production. Also reported night sweats. Denied any fever or chills. She is afebrile with a WBC count elevated on admission 25, 000. CAT scan chest suggestive of right-sided pleural effusion with the right lower lung complete collapse and mild to moderate collapse of right upper and middle lobes. * Admitted to general medicine floor for further management of pneumonia and pleural effusion * vitals closely every shift * Maintain oxygen saturation greater than 90% * Provide supplemental oxygen * Monitor closely for worsening leukocytosis, fever, shortness of breath * IV ceftriaxone and IV azithromycin-day 2 for community-acquired pneumonia * Total respiratory care * Nebulizer and inhaler treatments * Pain management * Legionella, strep were negative * Follow blood cultures * Follow-up sputum cultures * Follow-up urine cultures * EKG, troponins negative * Fabric Inspector on board Right-sided pleural effusion Patient presented to emergency department for evaluation of right-sided chest pain. CAT scan chest showed large right pleural effusion with right lower lobe complete collapse and mild to moderate collapse of right upper lobe and middle lobe. Elevated wbc 26,000 on admission with bandemia however denies any fever. Patient reports ongoing chest pain, shortness of breath, cough, sputum production. Denies any blood in sputum. * Admit to general medical floor * IR consultation for thoracocentesis therapeutic and diagnostic- planning on Friday * Differential diagnosis for pleural effusion (infectious, inflammatory, malignancy) complication of pneumonia given leukocytosis, symptoms such as shortness of breath, night sweats, malignancy giving history of smoking and lung nodule, hypothyroidism * Pleural fluid cytology, culture, protein, glucose, LDH * Pulmonary was consulted Right lung nodule Indeterminate solitary 6 mm pulmonary nodules, other nodules in the collapsed portions of the right lung are not excluded. Small indeterminate mediastinal nodes. Single solid nodule average size 6-8 mm: * Low Risk Patient: CT at 6-12 months; then consider CT at 18-24 months. * High Risk Patient: CT at 6-12 months, then CT at 18-24 months. * Certain patients at high risk with suspicious nodule morphology, upper lobe location, or both may warrant 12-month follow-up. Hypertension Continue home medication of amlodipine 5 mg Continue home medications lisinopril 10 mg Hypothyroidism Continue home medication levothyroxine 50 g daily Smoker Patient continues to smoke half pack every day Smoking cessation provided Nicotine patch DVT prophylaxis alps Full code Pain pathway Tylenol Motrin and morphine Heart healthy diet Problem List: 1. Pneumonia 2. Pleural effusion 3. Lung collapse Pain Ratin Pain Location: right chest Pain Goal: Remain pain free Pain Plan: tylenol motrin Tomorrow's Labs & Rationales: CBC in the setting of leukocytosis BEP in the setting of hyponatremia DIPTI HOPKINS MD 11/09/16 3533: Attending Review Statement Attending Statement Attending Statement: examined this patient, discuss w/resident/PA/MANAGER COPY, agreed w/resident/PA/MANAGER COPY, discussed with family, reviewed EMR data (avail), discussed with nursing, reviewed images, amended to note Attending Assessment/Plan: The patient was seen and discussed with house staff, nursing and Dr. Damon. Agree with plan of care as outlined. Radiology reviewed CT and suggest that this pleural effusion is small. Will continue antibiotics, await sputum culture. Plan diagnostic thoracentesis for Saturday 11/11.
[2016-11-09 14:31] VITALS: BP 130/79
--- NOTE | 2016-11-09 14:33 | Cons- Pulmonary ---
General Information and HPI Consulting Request Date of Consult: 11/09/16 Requested By: Dr. Dewey Reason for Consult: Pleural effusion management Source of Information: patient, old records Exam Limitations: no limitations History of Present Illness: The patient is a 51-year-old female with a past medical history significant for hypertension, hypothyroidism, right ear deafness, and diverticulitis status post colon resection. The patient is a current smoker. The patient notes that she developed acute onset of sharp pain over the left shoulder blade several days ago. She was evaluated at a walk-in clinic and had a chest x-ray that did not reveal any acute abnormality. The patient's symptoms persisted and she presented to the emergency department for further evaluation. She reported that she was experiencing increasing shortness of breath over the past several days. She has a cough productive of clear sputum but has no history of hemoptysis. There is no report of chest pain, palpitations, fever, chills, headache, abdominal pain, nausea or vomiting. The patient was further evaluated in the emergency Department, noting she had a CAT scan of the chest that demonstrated a right-sided pleural effusion with near complete collapse of the right lower lobe. There was also moderate right middle lobe collapse and mild right upper lobe collapse. The etiology of the effusion was indeterminate. There was a and indeterminate solitary 6 mm pulmonary nodule, small indeterminate mediastinal lymph nodes, hepatic steatosis, colonic diverticulosis, and a jeffy umbilical hernia without obstruction. The patient was admitted, started on ceftriaxone and azithromycin as well as TRC/neb treatments. She did not have significant evidence of bronchospasm and therefore was not started on Solu-Medrol. Overall, the patient reports that she's feeling improved and denies any new complaints today. The patient's WBC count is markedly elevated at 26K with bandemia. Allergies/Medications Allergies: Coded Allergies: No Known Allergies (11/08/16) Home Med List: Amlodipine Besylate 5 MG TABLET 1 TAB PO DAILY HTN (Reported) Levothyroxine Sodium 50 MCG TABLET 1 TAB PO DAILY THYROID (Reported) Lisinopril 10 MG TABLET 1 TAB PO DAILY HTN (Reported) Naproxen Sodium 550 MG TABLET 1 TAB PO BID PAIN (Reported) Review of Systems Review of Systems Constitutional: Denies: chills, diaphoresis, fever, malaise, weakness, unexplained weight loss. EENTM: Denies: no symptoms. Cardiovascular: Denies: chest pain, edema, orthopena, palpitations, peripheral edema, syncope. Respiratory: Reports: cough, short of breath, sputum production. Denies: hemoptysis, orthopnea, stridor, wheezing. GI: Denies: no symptoms. Genitourinary: Denies: no symptoms. All Other Systems: Reviewed and Negative Past History Travel History Traveled to [place] past 21 day No Medical History Blood Transfusion Hx: No Neurological: NONE EENT: NONE Cardiovascular: hypertension Respiratory: NONE Gastrointestinal: COLON RESECTION Hepatic: NONE Renal: NONE Musculoskeletal: NONE Psychiatric: NONE Endocrine: hypothyroidism Blood Disorders: NONE Cancer(s): NONE WEEKEND ANCHOR/Reproductive: NONE Surgical History Surgical History: non-contributory, colon resection clavicle fusion Psychosocial History Smoking Status: Current Everyday Smoker ETOH Use: occasional use Illicit Drug Use: marijuana Exam & Diagnostic Data Last 24 Hrs of Vital Signs/I&O Vital Signs Date Time Temp Pulse Resp B/P B/P Pulse O2 O2 Flow FiO2 Mean Ox Delivery Rate 11/09 1123 Nasal 2.0L Cannula 11/09 0905 79 130/60 11/09 0905 79 130/60 11/09 0800 92 Nasal 2.0L Cannula 11/09 0637 97.6 79 20 130/60 92 Nasal 2.0L Cannula 11/09 0000 94 Nasal 2.0L Cannula 11/08 2331 97.5 73 20 140/88 93 Nasal 2.0L Cannula 11/08 2150 96.8 78 20 141/73 92 Nasal 2.0L Cannula 11/08 1920 97.6 88 20 134/73 92 Room Air 11/08 1846 97.1 86 18 149/90 99 11/08 1552 97.3 92 18 161/80 92 Room Air Intake & Output 11/09 1600 11/09 0800 11/09 0000 Intake Total 600 610 Output Total Balance 600 610 Intake, IV 10 Intake, Oral 600 600 Patient 233 lb Weight Physical Exam General Appearance: no apparent distress, alert, awake, anxious, comfortable Head: atraumatic, normal appearance Neck: supple Respiratory: absent breath sounds at the right lung base Cardiovascular: regular rate/rhythm Gastrointestinal: normal bowel sounds, soft, non-tender Extremities: no edema Skin: intact, normal color, warm/dry Last 48 Hrs of Labs/Javon: Laboratory Tests 11/09/ 0640: Anion Gap 11, Estimated GFR > 60, BUN/Creatinine Ratio 18.3, Lactate Dehydrogenase 532, CBC w Diff MAN DIFF ORDERED, RBC 4.72, MCV 87.2, MCH 28.8, RDW 13.9, MPV 9.1, Gran % 87.2 H, Lymphocytes % 4.3 L, Monocytes % 8.2, Eosinophils % 0.1, Basophils % 0.2, Absolute Granulocytes 22.8 H, Segmented Neutrophils 74, Band Neutrophils 10 H, Absolute Lymphocytes 1.1 L, Lymphocytes 6 L, Monocytes 10 H, Absolute Monocytes 2.2 H, Absolute Eosinophils 0, Absolute Basophils 0, Platelet Estimate ADEQUATE, Normocytic RBCs VERIFIED, Normochromic RBCs VERIFIED, PUBS MCHC 33.0 11/08/16 2300: Urine Color YEL, Urine Clarity CLEAR, Urine pH 5.5, Ur Specific [place] 1.010, Urine Protein 30 H, Urine Ketones 15 H, Urine Nitrite NEG, Urine Bilirubin NEG , Urine Urobilinogen 1.0, Ur Leukocyte Esterase NEG, Ur Microscopic SEDIMENT EXAMINED, Urine RBC RARE, Urine WBC 1-3 H, Ur Epithelial Cells FEW, Urine Bacteria RARE H, Urine Hemoglobin TRACE H, Urine Glucose NEG 11/08/16 1640: Anion Gap 15, Estimated GFR > 60, BUN/Creatinine Ratio 16.3, Glucose 128 H, Lactic Acid 1.2, Calcium 10.1, Total Bilirubin 1.4 H, AST 19, ALT 30, Alkaline Phosphatase 69, Troponin I < 0.01, Total Protein 7.1, Albumin 4.3, Globulin 2.8, Albumin/Globulin Ratio 1.5, TSH 3.570, Free T4 1.71, PT 14.1 H, INR 1.35 H, APTT 32, CBC w Diff MAN DIFF ORDERED, RBC 5.22, MCV 84.8, MCH 28.5, RDW 13.9, MPV 8.6, Gran % 88.1 H, Lymphocytes % 4.9 L, Monocytes % 6.9, Eosinophils % 0, Basophils % 0.1, Absolute Granulocytes 22.3 H, Segmented Neutrophils 83 H, Band Neutrophils 5, Absolute Lymphocytes 1.2, Lymphocytes 8 L, Monocytes 4, Absolute Monocytes 1.8 H, Absolute Eosinophils 0, Absolute Basophils 0, Platelet Estimate ADEQUATE, Normal RBC Morphology N, PUBS MCHC 33.5 Microbiology 11/09 499 URINE ROUT: Legionella Antigen - COMP 06/24 0500 URINE ROUT: Streptococcus pneumoniae Antigen (M - COMP Assessment/Plan Impression/Plan: 1. Acute hypoxia and increased pleural effusion, suggestive of community acquired pneumonia, malignancy needs to be excluded. 2. Tobacco use disorder. 3. Increased right-sided pleural effusion of unclear etiology, this may be related to pneumonia versus malignancy. 4. Multiple comorbidities including hypertension, hypothyroidism, and right ear deafness. Recommendations: * Continue nebs/TRC. * Follow-up cultures. * Continue empiric antibiotics including ceftriaxone and azithromycin. * Ultrasound-guided right thoracentesis on Friday planned. * Continue smoking cessation. * Continue with pain management. * Taper oxygen down to off if able. * Continue home medications as necessary. * Continue all supportive care. * Thank you, will follow along with you and provide further recommendations as necessary. Consult Acknowledgment - Thank you for your consult request.
--- NOTE | 2016-11-09 18:09 | NUR ---
PT REQUESTING CHANGE IN PAIN MEDICATION REGIMEN, STATING THE PAIN MEDICATIONS SHE IS CURRENTLY ON ARE HELPING BUT NOT COMPLETELY, WOULD LIKE PAIN TO BE IN BETTER CONTROL. PT C/O PAIN TO R UPPER BACK AND R LOWER BACK. PT MEDICATED AT THIS TIME WITH MOTRIN 600MG PER EMAR FOR A PAIN OF 6/10. POOL TECHNICIAN ROXANN PAGED WITH PTS CONCERNS. IV MORPHINE CHANGED TO 2MG [id number]. PT UPDATED ON CHANGE AND POC. WILL CONTINUE TO MONITOR.
[2016-11-09 22:35] VITALS: BP 150/70
[2016-11-10 06:46] VITALS: BP 138/60
--- NOTE | 2016-11-10 08:19 | PN- Housestaff ---
ROXANN ZULUAGA 11/10/16 0819: Subjective Follow-up For: #Community-acquired pneumonia #Right side pleural effusion #Lung collapse #Leukocytosis #Pulmonary nodules #Hypertension #Hypothyroidism #History of smoking Complaints: pain scale (0-10) Subjective: Patient was seen and examined this morning. She is alert awake and oriented to time place and person. No acute events noticed overnight. Patient continues to report shortness of breath, but improving since admission. Continues to report mild chest discomfort on right side. However denies any pleuritic chest pain. Denies any fever, chills. Continues to report ongoing cough associated with sputum production. Also reports ongoing sweats. Vitals stable afebrile, heart rate 80, respiratory rate 20, blood pressure 130/ 70, saturating at 94 on 2 L nasal cannula Review of Systems Constitutional: Reports: see HPI. Objective Last 24 Hrs of Vital Signs/I&O Vital Signs Date Time Temp Pulse Resp B/P B/P Pulse O2 O2 Flow FiO2 Mean Ox Delivery Rate 11/10 1007 90 150/90 11/10 1007 90 150/90 11/10 0924 95 Nasal 2.0L Cannula 11/10 0800 94 Nasal 2.0L Cannula 11/10 0646 98.2 90 20 138/60 94 Nasal Cannula 11/10 0000 94 Nasal 2.0L Cannula 11/09 2235 97.6 91 20 150/70 94 Nasal 2.0L Cannula 11/09 1953 94 Nasal 2.0L Cannula 11/09 1600 Nasal 2.0L Cannula 11/09 1431 98.7 68 20 130/79 98 Intake & Output 11/10 1600 11/10 0800 11/10 0000 Intake Total 490 980 Output Total Balance 490 980 Intake, IV 10 280 Intake, Oral 480 700 Physical Exam General Appearance: Alert, Oriented X3, Cooperative, No Acute Distress Skin: No Rashes, No Breakdown HEENT: Atraumatic, PERRLA, EOMI, Mucous Membr. moist/pink Neck: Supple, No JVD Lymphatic: Cervical nl Cardiovascular: Normal S1, Normal S2 Lungs: right side dec bs Abdomen: Normal Bowel Sounds, Soft, No Tenderness Neurological: Normal Speech, Strength at 5/5 X4 Ext, Normal Tone, Sensation Intact, Cranial Nerves 3-12 NL Extremities: No Clubbing, No Cyanosis, No Edema Vascular: Normal Pulses, Pulses Symmetrical Current Medications: Current Medications Sig/Cherry Start time Last Medication Dose Route Stop Time Status Admin Acetaminophen 650 MG Q6P PRN 11/08 2300 AC PO Albuterol Sulfate 3 ML BID 11/09 1137 AC 11/10 INH 0922 Amlodipine Besylate 5 MG DAILY 11/09 1000 AC 11/10 PO 1007 Azithromycin 500 MG Q24H 11/09 2044 AC 11/09 Sodium Chloride 250 ML IV 205 Ceftriaxone Sodium 1,000 MG Q24H 11/09 2044 AC 11/09 IV 2051 Docusate Sodium 100 MG DAILY NEEDED PRN 11/10 1100 AC PO Ibuprofen 600 MG Q6P PRN 11/08 2300 AC 11/10 PO 0418 Levothyroxine Sodium 0.05 MG DAILY AC 11/09 0700 AC 11/10 PO 0418 Lisinopril 10 MG DAILY 11/09 1000 AC 11/10 PO 1007 Morphine Sulfate 2 MG Q4 HRS NEEDED PRN 11/09 1815 AC 11/10 IV 1050 Morphine Sulfate 1 MG Q6P PRN 11/08 2300 DC 11/09 IV 1454 Polyethylene Glycol 17 GM DAILY PRN 11/10 1100 AC PO Last 24 Hrs of Lab/Javon Results Last 24 Hrs of Labs/Mics: Laboratory Tests 11/10/16 0635: Anion Gap 9, Estimated GFR > 60, BUN/Creatinine Ratio 16.0, CBC w Diff MAN DIFF ORDERED, RBC 4.88, MCV 87.3, MCH 28.6, RDW 13.7, MPV 9.1, Gran % 86.0 H, Lymphocytes % 4.1 L, Monocytes % 9.5 H, Eosinophils % 0.1, Basophils % 0.3, Absolute Granulocytes 22.2 H, Segmented Neutrophils 77 H, Band Neutrophils 6 H, Absolute Lymphocytes 1.1 L, Lymphocytes 7 L, Monocytes 10 H, Absolute Monocytes 2.5 H, Absolute Eosinophils 0, Absolute Basophils 0.1, Platelet Estimate ADEQUATE, Normocytic RBCs VERIFIED, Normochromic RBCs VERIFIED, PUBS MCHC 32.7 L Microbiology 11/09 1205 LOWER RESP: Respiratory Culture - RES 11/09 120 LOWER RESP: Gram Stain - RES Assessment/Plan Assessment: Ms. Haney is 51 year old female with past medical history significant for hypertension, hypothyroidism, current smoker, right ear nerve deafness, diverticulitis status post colon resection who presented to ED with chief complaint of right lateral neck and thoracic chest pain for the last 5 days. Patient stated that the pain was so severe that she presented to urgent care facility and had an x-ray with unremarkable results. She was prescribed naproxen but her symptoms did not improve. Pain is pleuritic in nature and increases with movement. On admission Vital signs temperature 97.3, pulse 92, blood pressure 161/80, respiratory rate 18 saturating 92%. Pertinent WBC 25.3, H&H 14.8/44.3, platelet 329, sodium 133, potassium 5, BUN/ creatinine 13/0.8, lactic acid 1.2, INR 1.35. Ribs x-ray showed, Low lung volumes with basilar atelectasis with right-sided effusion. No fractures are seen. CT chest abdomen and pelvis with contrast showed, Right-sided pleural effusion with near-complete right lower lobe collapse. Moderate right middle lobe collapse, and mild right upper lobe collapse. Effusion is indeterminate in etiology. Indeterminate solitary 6 mm pulmonary nodules, other nodules in the collapsed portions of the right lung are not excluded. Problem list #Community-acquired pneumonia #Right side pleural effusion #Lung collapse #Leukocytosis #Pulmonary nodules #Hypertension #Hypothyroidism #History of smoking Multilobar Community-acquired pneumonia/acute hypoxic respiratory insufficiency Patient presented to Hospital with ongoing chest pain, shortness of breath, cough associated with sputum production. Also reported night sweats. Denied any fever or chills. She is afebrile with a WBC count elevated on admission 25, 000. CAT scan chest suggestive of right-sided pleural effusion with the right lower lung complete collapse and mild to moderate collapse of right upper and middle lobes. * Admitted to general medicine floor for further management of pneumonia and pleural effusion * vitals closely every shift * Maintain oxygen saturation greater than 90% * Provide supplemental oxygen if necessary * Monitor closely for worsening leukocytosis, fever, shortness of breath * IV ceftriaxone and IV azithromycin-day3 for community-acquired pneumonia * persistent leukocytosis * Total respiratory care * Nebulizer and inhaler treatments * Pain management * Legionella, strep were negative * Follow blood cultures * Follow-up sputum cultures * Follow-up urine cultures * EKG, troponins negative * Histology Technologist on board Right-sided pleural effusion Patient presented to emergency department for evaluation of right-sided chest pain. CAT scan chest showed large right pleural effusion with right lower lobe complete collapse and mild to moderate collapse of right upper lobe and middle lobe. Elevated wbc 26,000 on admission with bandemia however denies any fever. Patient reports ongoing chest pain, shortness of breath, cough, sputum production. Denies any blood in sputum. * Right-sided pleural effusion most likely from malignancy versus pneumonia * Admit to general medical floor * Persistent leukocytosis, possibly from pleural effusion with empyema * IR consultation for thoracocentesis therapeutic and diagnostic- recommend this be done today and pigtail catheter insertion be considered if there is any evidence of pus. * Differential diagnosis for pleural effusion (infectious, inflammatory, malignancy) complication of pneumonia given leukocytosis, symptoms such as shortness of breath, night sweats, malignancy giving history of smoking and lung nodule, hypothyroidism * Pleural fluid cytology, culture, protein, glucose, LDH * Pulmonary was consulted Right lung nodule Indeterminate solitary 6 mm pulmonary nodules, other nodules in the collapsed portions of the right lung are not excluded. Small indeterminate mediastinal nodes. Single solid nodule average size 6-8 mm: * Low Risk Patient: CT at 6-12 months; then consider CT at 18-24 months. * High Risk Patient: CT at 6-12 months, then CT at 18-24 months. * Certain patients at high risk with suspicious nodule morphology, upper lobe location, or both may warrant 12-month follow-up. Hypertension Continue home medication of amlodipine 5 mg Continue home medications lisinopril 10 mg Hypothyroidism Continue home medication levothyroxine 50 g daily Smoker Patient continues to smoke half pack every day Smoking cessation provided Nicotine patch Constipation Bowel regimen was added DVT prophylaxis alps Full code Pain pathway Tylenol Motrin and morphine Heart healthy diet Problem List: 1. Pneumonia 2. Lung collapse 3. Pleural effusion Pain Ratin Pain Location: n/a Pain Goal: Remain pain free Pain Plan: tylinol Tomorrow's Labs & Rationales: cbc in the setting of leukocytosis DIPTI HOPKINS MD 11/10/16 2150: Attending MD Review Statement Attending Statement Attending MD Statement: examined this patient, discuss w/resident/PA/EDUCATIONAL ASSISTANT TEACHER, agreed w/resident/PA/EDUCATIONAL ASSISTANT TEACHER, discussed with family, reviewed EMR data (avail), discussed with nursing, reviewed images, amended to note Attending Assessment/Plan: The patient was seen and discussed with house staff and Pulmonary. WBC remains significantly elevated. Spoke with IR earlier and right sided thoracentesis today. Continue Antibiotics.
[2016-11-10 08:30] LABS: ABSOLUTE BASOPHIL COUNT 0.1 /CUMM (0.0-0.2); ABSOLUTE EOSINOPHIL COUNT 0 /CUMM (0.0-0.7); ABSOLUTE GRANULOCYTE CT 22.2 /CUMM (1.4-6.5); ABSOLUTE LYMPH COUNT 1.1 /CUMM (1.2-3.4); ABSOLUTE MONOCYTE COUNT 2.5 /CUMM (0.10-0.60); BASOPHIL % 0.3 % (0.0-2.0); EOSINOPHIL % 0.1 % (0-5); HEMATOCRIT 42.7 % (37-47); MEAN CORPUSCULAR HGB 28.6 PG (27.0-31.0); MEAN CORPUSCULAR HGB CONC 32.7 G/DL (33.0-37.0); MEAN CORPUSCULAR VOLUME 87.3 FL (81.0-99.0); MEAN PLATELET VOLUME 9.1 FL (7.4-10.4); PLATELET COUNT 330 /CUMM (130-400); RBC DISTRIBUTION WIDTH 13.7 % (11.5-14.5); RED BLOOD CELL CT 4.88 /CUMM (4.20-5.40); WHITE BLOOD CELL COUNT 25.8 /CUMM (4.8-10.8)
--- NOTE | 2016-11-10 11:37 | PN- Pulmonary ---
Subjective HPI/Critical Care Issues: The patient is awake and alert. She reports feeling improved overall. She does continue however to have pleuritic chest pain on the right. She also is complaining of increased constipation. There were no overnight events reported. Objective Current Medications: Current Medications Sig/Cherry Start time Last Medication Dose Route Stop Time Status Admin Acetaminophen 650 MG Q6P PRN 11/08 2300 AC PO Albuterol Sulfate 3 ML BID 11/09 1137 AC 11/10 INH 0922 Amlodipine Besylate 5 MG DAILY 11/09 1000 AC 11/10 PO 1007 Azithromycin 500 MG Q24H 11/09 2044 AC 11/09 Sodium Chloride 250 ML IV 205 Ceftriaxone Sodium 1,000 MG Q24H 11/09 204 AC 11/09 IV 205 Docusate Sodium 100 MG DAILY NEEDED PRN 11/10 1100 AC PO Ibuprofen 600 MG Q6P PRN 11/08 2300 AC 11/10 PO 0418 Levothyroxine Sodium 0.05 MG DAILY AC 11/09 0700 AC 11/10 PO 0418 Lisinopril 10 MG DAILY 11/09 1000 AC 11/10 PO 1007 Morphine Sulfate 2 MG Q4 HRS NEEDED PRN 11/09 1815 AC 11/10 IV 1050 Morphine Sulfate 1 MG Q6P PRN 11/08 2300 DC 11/09 IV 1454 Polyethylene Glycol 17 GM DAILY PRN 11/10 1100 AC PO Vital Signs & I&O Last 24 Hrs of Vitals and I&O: Vital Signs Date Time Temp Pulse Resp B/P B/P Pulse O2 O2 Flow FiO2 Mean Ox Delivery Rate 11/10 1007 90 150/90 11/10 1007 90 150/90 11/10 0924 95 Nasal 2.0L Cannula 11/10 0800 94 Nasal 2.0L Cannula 11/10 0646 98.2 90 20 138/60 94 Nasal Cannula 11/10 0000 94 Nasal 2.0L Cannula 11/095 97.6 91 20 150/70 94 Nasal 2.0L Cannula 11/09 1953 94 Nasal 2.0L Cannula 11/09 1600 Nasal 2.0L Cannula 11/09 1431 98.7 68 20 130/79 98 Intake & Output 11/10 1600 11/10 0800 11/10 0000 Intake Total 490 980 Output Total Balance 490 980 Intake, IV 10 280 Intake, Oral 480 700 Physical Exam General Appearance: no apparent distress, alert, awake, anxious, comfortable Head: atraumatic, normal appearance Neck: supple Respiratory: absent breath sounds at the right lung base Cardiovascular: regular rate/rhythm Gastrointestinal: normal bowel sounds, soft, non-tender Extremities: no edema Skin: intact, normal color, warm/dry Results Last 24 Hrs of Lab Results: Laboratory Tests 11/10/16 0635: Anion Gap 9, Estimated GFR > 60, BUN/Creatinine Ratio 16.0, CBC w Diff MAN DIFF ORDERED, RBC 4.88, MCV 87.3, MCH 28.6, RDW 13.7, MPV 9.1, Gran % 86.0 H, Lymphocytes % 4.1 L, Monocytes % 9.5 H, Eosinophils % 0.1, Basophils % 0.3, Absolute Granulocytes 22.2 H, Segmented Neutrophils 77 H, Band Neutrophils 6 H, Absolute Lymphocytes 1.1 L, Lymphocytes 7 L, Monocytes 10 H, Absolute Monocytes 2.5 H, Absolute Eosinophils 0, Absolute Basophils 0.1, Platelet Estimate ADEQUATE, Normocytic RBCs VERIFIED, Normochromic RBCs VERIFIED, PUBS MCHC 32.7 L Impression/Plan Impression/Plan Impression/Plan: 1. Acute hypoxia and increased pleural effusion, suggestive of community acquired pneumonia, malignancy needs to be excluded. The patient has a persistent leukocytosis which remains of significant concern, noting the patient may have an empyema. Her cultures remain negative. 2. Tobacco use disorder. 3. Increased right-sided pleural effusion of unclear etiology, this may be related to pneumonia versus malignancy. 4. Multiple comorbidities including hypertension, hypothyroidism, and right ear deafness. Recommendations: * Continue nebs/TRC. * Follow-up cultures. * Continue empiric antibiotics including ceftriaxone and azithromycin. * Ultrasound-guided right thoracentesis - recommend this be done today and pigtail catheter insertion be considered if there is any evidence of pus. Discussed with interventional radiology. * Continue with pain management. * Taper oxygen down to off if able. * Continue home medications as necessary. * Continue all supportive care. * Discussed with Dr. Dewey.
--- NOTE | 2016-11-10 13:53 | ULTRASOUND REPORT ---
EXAMINATION: US PLEURAL EFFUSION CLINICAL INFORMATION: Right pleural effusion with lung collapse COMPARISON: Previous chest and right rib x-rays and chest CT 11/08/2016 TECHNIQUE: Grayscale imaging of the chest using a curved transducer FINDINGS: There is a moderate to large right pleural effusion and compressive atelectasis of the adjacent right lung. No left pleural effusion is seen. IMPRESSION: Moderate to large right pleural effusion.
[2016-11-10 14:22] VITALS: BP 125/70
--- NOTE | 2016-11-10 16:09 | ULTRASOUND REPORT ---
EXAMINATION: ULTRASOUND-GUIDED RIGHT-SIDED CHEST TUBE PLACEMENT WITH THORACENTESIS CLINICAL INFORMATION: Loculated right-sided pleural effusion on chest x-ray and shortness of breath along with elevated white count which is increasing. There is right lung partial collapse present as well.. INTERVENTIONALIST: Elijah Eli MD PROCEDURE/FINDINGS: Informed consent was obtained from the patient prior to the procedure. During this process, the procedure and potential alternatives were explained, along with the intended outcome and benefits. The risks of the procedure including the possibility of an unsuccessful procedure, as well as the risk of not doing the procedure were discussed. The patient was given the opportunity to ask questions regarding the procedure and appeared competent to make decisions. A signed consent form documenting this discussion was placed in the medical record. A time out procedure was performed. The patient's CT scan was reviewed prior to performing the procedure. There was a collection at the right apex as well as the collection at the right base and both drained. The initial drainage was of the apical collection. Preliminary ultrasound confirms the presence of a apical fluid collection. With the patient in the supine position, the anterior chest was prepped and draped. All elements of maximal sterile barrier technique followed including use of cap, mask, sterile gown, sterile gloves, a sterile full body drape and hand hygiene. Also followed skin preparation with 2% chlorhexidine for cutaneous antisepsis, and sterile ultrasound preparation with sterile gel and probe cover when applicable. Using ultrasound guidance a 5-[place] tube was placed into the right apical collection and approximately 950 mL of clear yellow pleural fluid was evacuated. At the end of the procedure, the catheter was removed and a sterile dressing was applied to the site. Samples of fluid from the apical collection were sent for the requested laboratory exams including Gram stain culture and sensitivity as well as pH. Attention was then turned to the posterior lower collection and the patient was placed in the upright position. Ultrasound demonstrated a small amount of fluid at the lung base. With the patient in the upright position, the posterior chest was prepped and draped. All elements of maximal sterile barrier technique followed including use of cap, mask, sterile gown, sterile gloves, a sterile full body drape and hand hygiene. Also followed skin preparation with 2% chlorhexidine for cutaneous antisepsis, and sterile ultrasound preparation with sterile gel and probe cover when applicable. Using ultrasound guidance a 5-[place] tube was placed into the right posterior pleural collection and only 30 mL of cloudy yellow pleural fluid was evacuated. At the end of the procedure, the catheter was removed and a sterile dressing was applied to the site. Samples of fluid from the apical collection were sent for the requested laboratory exams including Gram stain culture and sensitivity as well as pH. MEDICATIONS: 20cc Lidocaine 1% was used for local anesthesia. IMPRESSION: Ultrasound-guided right-sided chest aspiration x2 with evacuation of 950 mL from the right apical collection. Only 30 mL could be evacuated from the lower collection. This lower collection fluid appeared slightly cloudy. We await laboratory analysis. The findings were discussed with Dr. Chavez immediately after the exam.
--- NOTE | 2016-11-10 16:40 | NUR ---
PT ARRIVED BACK TO FLOOR VIA STRETCHER FROM U/S GUIDED THORACENTESIS AT THIS TIME. 950 ML REMOVED FROM UPPER FRONT R CHEST AND 30 ML REMOVED FROM MID R BACK. VITAL SIGNS: 126/70, P 92, T 98.3, RR 18, O2 95% ON 2L NC. PT REPORTS FEELING LESS SOB AFTER PROCEDURE. MEDICATED WITH PRN MORPHINE FOR COMFORT. EDUCATED ON PAIN MEDICATION TIMES. FAMILY AT BEDSIDE, EDUCATED ON POC. PT RESTING COMFORTABLY AND OFFERS NO COMPLAINTS. PRECAUTIONS MAINTAINED.
[2016-11-10 16:56] VITALS: BP 126/70
[2016-11-10 21:30] VITALS: BP 160/74
--- NOTE | 2016-11-11 06:19 | RADIOLOGY REPORT ---
EXAMINATION: XR PORTABLE CHEST CLINICAL INFORMATION: Evaluate for pneumothorax. COMPARISON: Chest radiograph 11/10/2016. TECHNIQUE: Portable AP portable semiupright view of the chest was obtained. FINDINGS: There is a large right apical mass and a large pleural effusion that has increased in size when compared to prior imaging and there is now near total opacification of the right hemithorax. The left lung is clear and well expanded. The cardiac silhouette is grossly enlarged. No acute osseous finding. Chronic changes related to an anterior cervical discectomy and fusion in the lower cervical spine is noted. IMPRESSION: A large right apical mass is redemonstrated and there is a worsening right pleural effusion that nearly completely opacifies the right hemithorax. Cardiomegaly appears grossly unchanged.
--- NOTE | 2016-11-11 06:47 | NUR ---
AT APPROX 0400 PATIENT CALLED AND COMPLAINED OF HAVING DIFFICULTY BREATHING. SAYING IT FELT LIKE "HER LUNGS WERE BEING SQUASHED" AND WORSENING PAIN IN HER RIGHT LUNG. VITALS 160/80 BP, HR 111, 02 SAT 94% 2LO2 NC. BREATH SOUND DECREASED TO ALMOST ABSENT OF RIGHT SIDE. PRODUCTIVE COUGH WITH BROWNISH SPUTUM. YESSI HER, JOSH HANNON AND SHE CAME UP TO ROOM TO ASSESS PATIENT. CHEST XRAY ORDERED. RESPIRATORY PAGED AND NEBULIZER TREATMENT ADMINISTERED. PATIENT WAS PANICKING AND I SAT WITH HER AND TALKED TO HER AND SHE CALMED DOWN. MOTRIN 600 MG GIVEN. PATIENT REPORTED TO BE FEELING BETTER, BREATHING EASIER AND CALMER AND PAIN WAS BACK TO A TOLERABLE LEVEL. PATIENT O2 SAT WAS 98% ON 2LO2. WILL CONTINUE TO MONITOR.
[2016-11-11 07:27] VITALS: BP 170/90
--- NOTE | 2016-11-11 07:35 | PN- Housestaff ---
ROXANN ZULUAGA 11/11/16 0734: Subjective Follow-up For: #Community-acquired pneumonia #Right side pleural effusion #Lung collapse #Leukocytosis #Pulmonary nodules #Hypertension #Hypothyroidism #History of smoking Complaints: pain scale (0-10) Subjective: Patient was seen and examined this morning. She is alert awake and oriented to time place and person. she is status post right-sided thoracocentesis-drainage of 950 mL yellow fuid Patient continues to report shortness of breath, but improving since thoracocentesis Continues to report mild chest discomfort on right side. Denies any fever, chills. Continues to report ongoing cough associated with sputum production. There is no blood with sputum Vitals stable afebrile, heart rate 80, respiratory rate 20, blood pressure 130/ 70, saturating at 94 on 2 L nasal cannula Review of Systems Constitutional: Reports: see HPI. Objective Last 24 Hrs of Vital Signs/I&O Vital Signs Date Time Temp Pulse Resp B/P B/P Pulse O2 O2 Flow FiO2 Mean Ox Delivery Rate 11/11 1420 98.8 106 18 160/70 95 Nasal 2.0L Cannula 11/11 1244 140/68 11/11 0936 98.0 104 20 170/60 11/11 0936 98.0 104 20 170/60 11/11 0845 96 Nasal 2.0L Cannula 11/11 0800 Nasal 2.0L Cannula 11/11 0727 98.0 104 20 170/90 95 Nasal 2.0L Cannula 11/11 0522 98 Nasal 2.0L Cannula 11/11 0000 Nasal 2.0L Cannula 11/10 2130 98.0 97 19 160/74 98 Nasal 2.0L Cannula 11/10 1929 92 Nasal 2.0L Cannula 11/10 1656 98.3 92 18 126/70 95 Nasal 2.0L Cannula 11/10 1600 95 Nasal 2.0L Cannula Intake & Output 11/11 1600 11/11 0800 11/11 0000 Intake Total 120 1080 Output Total Balance 120 1080 Intake, IV 280 Intake, Oral 120 800 Physical Exam General Appearance: Alert, Oriented X3, Cooperative, No Acute Distress Skin: No Rashes, No Breakdown HEENT: Atraumatic, PERRLA Neck: Supple, No JVD Lymphatic: Cervical nl Cardiovascular: Normal S1, Normal S2 Lungs: Normal Air Movement, dec bs right Abdomen: Normal Bowel Sounds, Soft, No Tenderness Neurological: Strength at 5/5 X4 Ext, Cranial Nerves 3-12 NL, Reflexes 2+ Extremities: No Clubbing, No Cyanosis, No Edema Vascular: Pulses Symmetrical Current Medications: Current Medications Sig/Cherry Start time Last Medication Dose Route Stop Time Status Admin Acetaminophen 650 MG Q6P PRN 11/08 2300 AC PO Albuterol Sulfate 3 ML BID 11/09 1137 AC 11/11 INH 0842 Amlodipine Besylate 5 MG DAILY 11/09 1000 AC 11/11 PO 0936 Azithromycin 500 MG Q24H 11/09 2044 AC 11/10 Sodium Chloride 250 ML IV 2104 Ceftriaxone Sodium 1,000 MG Q24H 11/09 204 AC 11/10 IV 2104 Docusate Sodium 100 MG DAILY NEEDED PRN 11/10 1100 AC 11/10 PO 1424 Ibuprofen 600 MG .STK-MED ONE 11/11 0420 DC PO 11/11 0421 Ibuprofen 600 MG Q6P PRN 11/08 2300 AC 11/11 PO 0421 Levothyroxine Sodium 0.05 MG DAILY AC 11/09 0700 AC 11/11 PO 0614 Lisinopril 10 MG DAILY 11/09 1000 AC 11/11 PO 0936 Morphine Sulfate 2 MG Q4 HRS NEEDED PRN 11/09 1815 AC 11/11 IV 0143 Patient Medication 1 ED .STK-MED ONE 11/11 1358 DC Teaching ED 11/11 1359 Polyethylene Glycol 17 GM DAILY PRN 11/10 1100 11/10 PO 1424 Last 24 Hrs of Lab/Javon Results Last 24 Hrs of Labs/Mics: Laboratory Tests 11/11/16 0744: Anion Gap 11, Estimated GFR > 60, BUN/Creatinine Ratio 8.6, PT 13.8 H, INR 1.32 H, CBC w Diff MAN DIFF ORDERED, RBC 4.61, MCV 86.5, MCH 28.5, RDW 14.1, MPV 8.6 , Gran % 87.0 H, Lymphocytes % 4.1 L, Monocytes % 8.4, Eosinophils % 0.1, Basophils % 0.4, Absolute Granulocytes 20.2 H, Segmented Neutrophils 90 H, Band Neutrophils 1, Absolute Lymphocytes 1.0 L, Lymphocytes 4 L, Monocytes 5, Absolute Monocytes 2.0 H, Absolute Eosinophils 0, Absolute Basophils 0.1, Platelet Estimate VERIFIED BY SMEAR, Normocytic RBCs VERIFIED, Normochromic RBCs VERIFIED, PUBS MCHC 32.9 L Microbiology 11/12 939 LOWER RESP: Respiratory Culture - RES 11/12 939 LOWER RESP: Gram Stain - RES 11/12 799 BODY FLUID: Body Fluid Culture - COLB 11/12 799 BODY FLUID: Gram Stain - COLB Assessment/Plan Assessment: Ms. Haney is 51 year old female with past medical history significant for hypertension, hypothyroidism, current smoker, right ear nerve deafness, diverticulitis status post colon resection who presented to ED with chief complaint of right lateral neck and thoracic chest pain for the last 5 days. Patient stated that the pain was so severe that she presented to urgent care facility and had an x-ray with unremarkable results. She was prescribed naproxen but her symptoms did not improve. Pain is pleuritic in nature and increases with movement. On admission Vital signs temperature 97.3, pulse 92, blood pressure 161/80, respiratory rate 18 saturating 92%. Pertinent WBC 25.3, H&H 14.8/44.3, platelet 329, sodium 133, potassium 5, BUN/ creatinine 13/0.8, lactic acid 1.2, INR 1.35. Ribs x-ray showed, Low lung volumes with basilar atelectasis with right-sided effusion. No fractures are seen. CT chest abdomen and pelvis with contrast showed, Right-sided pleural effusion with near-complete right lower lobe collapse. Moderate right middle lobe collapse, and mild right upper lobe collapse. Effusion is indeterminate in etiology. Indeterminate solitary 6 mm pulmonary nodules, other nodules in the collapsed portions of the right lung are not excluded. Problem list #Community-acquired pneumonia #Right side pleural effusion #Lung collapse #Leukocytosis #Pulmonary nodules #Hypertension #Hypothyroidism #History of smoking Multilobar Community-acquired pneumonia/acute hypoxic respiratory insufficiency Patient presented to Hospital with ongoing chest pain, shortness of breath, cough associated with sputum production. Also reported night sweats. Denied any fever or chills. She is afebrile with a WBC count elevated on admission 25, 000. CAT scan chest suggestive of right-sided pleural effusion with the right lower lung complete collapse and mild to moderate collapse of right upper and middle lobes. * Admitted to general medicine floor for further management of pneumonia and pleural effusion * vitals closely every shift * Maintain oxygen saturation greater than 90% * Provide supplemental oxygen if necessary * Monitor closely for worsening leukocytosis, fever, shortness of breath * IV ceftriaxone and IV azithromycin-day4 for community-acquired pneumonia * persistent leukocytosis- 31809 * Total respiratory care * Nebulizer and inhaler treatments * Pain management * Legionella, strep were negative * Follow blood cultures * Follow-up sputum cultures * Follow-up urine cultures * EKG, troponins negative * Cae Engineer on board * ID on board Right-sided pleural effusion Patient presented to emergency department for evaluation of right-sided chest pain. CAT scan chest showed large right pleural effusion with right lower lobe complete collapse and mild to moderate collapse of right upper lobe and middle lobe. Elevated wbc 26,000 on admission with bandemia however denies any fever. Patient reports ongoing chest pain, shortness of breath, cough, sputum production. Denies any blood in sputum. * Right-sided pleural effusion most likely from malignancy versus pneumonia. * Persistent leukocytosis, possibly from pleural effusion with empyema. * thoracocentesis therapeutic and diagnostic- Ultrasound-guided right-sided chest aspiration x2 with evacuation of 950 mL from the right apical collection. Only 30 mL could be evacuated from the lower collection. This lower collection fluid appeared slightly cloudy. Pleural fluid analysis showed WBC 33,000, LDH 27643, pH 6.85-suggestive of EXUDATIVE pleural effusion. Glucose was less than 20, amylase less than 30.. Gram stain and cultures were pending * Pleural fluid cytology, culture- f/u * Repeat chest x-ray after thoracocentesis revealed a right apical mass and worsening pleural effusion right side * planning to get CT-guided thoracocentesis right side pigtail catheter placement. Right lung nodule Indeterminate solitary 6 mm pulmonary nodules, other nodules in the collapsed portions of the right lung are not excluded. Small indeterminate mediastinal nodes. Single solid nodule average size 6-8 mm: * Low Risk Patient: CT at 6-12 months; then consider CT at 18-24 months. * High Risk Patient: CT at 6-12 months, then CT at 18-24 months. * Certain patients at high risk with suspicious nodule morphology, upper lobe location, or both may warrant 12-month follow-up. Hypertension Continue home medication of amlodipine 5 mg Continue home medications lisinopril 10 mg Hypothyroidism Continue home medication levothyroxine 50 g daily Smoker Patient continues to smoke half pack every day Smoking cessation provided Nicotine patch Constipation Bowel regimen was added DVT prophylaxis alps Full code Pain pathway Tylenol Motrin and morphine Heart healthy diet Problem List: 1. Pleural effusion 2. Lung collapse 3. Pneumonia Pain Ratin Pain Location: right upper chest Pain Goal: Remain pain free Pain Plan: tylenol motrin Tomorrow's Labs & Rationales: CBC in the setting of leukocytosis and pneumonia DIPTI HOPKINS MD 11/11/16 1920: Attending MD Review Statement Attending Statement Attending MD Statement: examined this patient, discuss w/resident/PA/TRAVEL FREIGHT AND PASSENGER AGENT, agreed w/resident/PA/TRAVEL FREIGHT AND PASSENGER AGENT, discussed with family, reviewed EMR data (avail), discussed with nursing, discussed with case mgmt, reviewed images, amended to note Attending Assessment/Plan: The patient was seen and discussed with house staff. Appreciate pulmonary input. GNR's growing from pleural fluid from yesterday. ID consult obtained and pigtail placed by IR. Will follow fluid output. WBC only slightly decreased. Antibiotics as per ID. Await cytology report.
--- NOTE | 2016-11-11 08:34 | RADIOLOGY REPORT ---
EXAMINATION: XR CHEST CLINICAL INFORMATION: Status post removal of 1 L of fluid collection 30 mL of cloudy fluid basilar collection. COMPARISON: Chest radiograph 11/08/[address] dated same day TECHNIQUE: 2 views of the chest were obtained. FINDINGS: And apical collection is noted on the right. Interestingly, this was not appreciated on the chest radiograph but was seen on the CT scan. A moderate right effusion with associated cyst/collapse persists. No pneumothorax is present. Left lung is clear. There is no evidence of CHF. IMPRESSION: No complication status post thoracentesis. This patient does not improve I would recommend a repeat CT scan with possible CT-guided drainage or recent decortication if this is an empyema. This result was discussed with Dr. Chavez immediately after the exam and it was ascertained that the content of the report was understood at the time of direct communication.
[2016-11-11 09:14] LABS: PT 13.8 SEC (9.4-12.5)
[2016-11-11 09:26] LABS: ABSOLUTE BASOPHIL COUNT 0.1 /CUMM (0.0-0.2); ABSOLUTE EOSINOPHIL COUNT 0 /CUMM (0.0-0.7); ABSOLUTE GRANULOCYTE CT 20.2 /CUMM (1.4-6.5); BASOPHIL % 0.4 % (0.0-2.0); EOSINOPHIL % 0.1 % (0-5); HEMATOCRIT 39.8 % (37-47); MEAN CORPUSCULAR HGB 28.5 PG (27.0-31.0); MEAN CORPUSCULAR HGB CONC 32.9 G/DL (33.0-37.0); MEAN CORPUSCULAR VOLUME 86.5 FL (81.0-99.0); MEAN PLATELET VOLUME 8.6 FL (7.4-10.4); PLATELET COUNT 362 /CUMM (130-400); RBC DISTRIBUTION WIDTH 14.1 % (11.5-14.5); RED BLOOD CELL CT 4.61 /CUMM (4.20-5.40); WHITE BLOOD CELL COUNT 23.3 /CUMM (4.8-10.8)
--- NOTE | 2016-11-11 10:51 | PN- Pulmonary ---
Subjective HPI/Critical Care Issues: The patient is status post thoracentesis noting approximately 1 L of clear fluid was drained. Analysis of the fluid shows the pleural effusion to be exudative in nature. The pH is also well along with the glucose, suggestive of empyema. The patient reports feeling improved since the thoracentesis. She is less short of breath. She woke up early this morning with a coughing spasm and expectorated a significant amount of sputum. There was no report of hemoptysis. She denies any new complaints today. Objective Current Medications: Current Medications Sig/Cherry Start time Last Medication Dose Route Stop Time Status Admin Acetaminophen 650 MG Q6P PRN 11/08 2300 AC PO Albuterol Sulfate 3 ML BID 11/09 1137 AC 11/11 INH 0842 Amlodipine Besylate 5 MG DAILY 11/09 1000 AC 11/11 PO 0936 Azithromycin 500 MG Q24H 11/09 2044 AC 11/10 Sodium Chloride 250 ML IV 2104 Ceftriaxone Sodium 1,000 MG Q24H 11/09 204 AC 11/10 IV 2104 Docusate Sodium 100 MG DAILY NEEDED PRN 11/10 1100 AC 11/10 PO 1424 Ibuprofen 600 MG Q6P PRN 11/08 2300 AC 11/11 PO 0421 Levothyroxine Sodium 0.05 MG DAILY AC 11/09 0700 AC 11/11 PO 0614 Lisinopril 10 MG DAILY 11/09 1000 AC 11/11 PO 0936 Morphine Sulfate 2 MG Q4 HRS NEEDED PRN 11/09 1815 AC 11/11 IV 0143 Polyethylene Glycol 17 GM DAILY PRN 11/10 1100 AC 11/10 PO 1424 Vital Signs & I&O Last 24 Hrs of Vitals and I&O: Vital Signs Date Time Temp Pulse Resp B/P B/P Pulse O2 O2 Flow FiO2 Mean Ox Delivery Rate 11/12 935 98.0 104 20 170/60 11/11 09 98.0 104 20 17060 11/11 0845 96 Nasal 2.0L Cannula 11/11 0727 98.0 104 20 170/90 95 Nasal 2.0L Cannula 11/11 0522 98 Nasal 2.0L Cannula 11/11 0000 Nasal 2.0L Cannula 11/100 98.0 97 19 160/74 98 Nasal 2.0L Cannula 11/10 1929 92 Nasal 2.0L Cannula 11/10 1656 98.3 92 18 126/70 95 Nasal 2.0L Cannula 11/10 1600 95 Nasal 2.0L Cannula 11/10 1422 97.5 82 20 125/70 96 Intake & Output 11/11 1600 11/11 0800 11/11 0000 Intake Total 1080 Output Total Balance 1080 Intake, IV 280 Intake, Oral 800 Physical Exam General Appearance: no apparent distress, alert, awake, anxious, comfortable Head: atraumatic, normal appearance Neck: supple Respiratory: improved air entry at the right lung base, still with scattered rhonchi Cardiovascular: regular rate/rhythm Gastrointestinal: normal bowel sounds, soft, non-tender Extremities: no edema Skin: intact, normal color, warm/dry Results Last 24 Hrs of Lab Results: Laboratory Tests 11/11/16 0744: Anion Gap 11, Estimated GFR > 60, BUN/Creatinine Ratio 8.6, PT 13.8 H, INR 1.32 H, CBC w Diff Pending, WBC Pending, RBC Pending, Hgb Pending, Hct Pending, MCV Pending, MCH Pending, RDW Pending, Plt Count Pending, MPV Pending, Gran % Pending, Lymphocytes % Pending, Monocytes % Pending, Eosinophils % Pending, Basophils % Pending, Absolute Granulocytes Pending, Absolute Lymphocytes Pending , Absolute Monocytes Pending, Absolute Eosinophils Pending, Absolute Basophils Pending, PUBS MCHC Pending 11/10/16 1528: Fluid Total Protein 4.4 11/10/16 1528: Fluid Total Protein 4.7 11/10/16 1528: Fluid WBC 39350 H, Fld Mesothelial Cells 6, Fld Total RBCs Counted 2444 H 11/10/16 1528: Fluid LDH 90735 11/10/16 1528: Lymphocytes 30, % Normal PMNs 64, Fluid Glucose < 20 11/10/16 1527: Phlebotomy Draw Site RT. APEX, Pleural pH 6.85 11/10/16 1520: Fluid WBC 3889 H, Fld Mesothelial Cells 1, Fld Total RBCs Counted 356 H 11/10/16 1520: Lymphocytes 1, % Normal PMNs 98, Fluid Glucose 57, Fluid Albumin 2.4, Fluid LDH 2603, Fluid Amylase < 30 Diagnostic Data CXR Findings: A large right apical mass is redemonstrated and there is a worsening right pleural effusion that nearly completely opacifies the right hemithorax. Cardiomegaly appears grossly unchanged. Impression/Plan Impression/Plan Impression/Plan: 1. Acute hypoxia and increased pleural effusion, suggestive of community acquired pneumonia, malignancy needs to be excluded. The patient has a persistent leukocytosis remains of significant concern in the setting of a large exudative effusion suspicious for empyema. 2. Tobacco use disorder. 3. Multiple comorbidities including hypertension, hypothyroidism, obesity and right ear deafness. Recommendations: * Continue nebs/TRC. * Follow-up cultures. * Continue empiric antibiotics including ceftriaxone and azithromycin. * Please request an ID consult. * CT-guided pigtail catheter insertion to be done today if there is enough fluid left tap. * Continue with pain management. * Taper oxygen down to off if able. * Continue home medications as necessary. * Continue all supportive care. * Discussed with Dr. Dewey.
[2016-11-11 12:44] VITALS: BP 140/68
[2016-11-11 14:20] VITALS: BP 160/70
--- NOTE | 2016-11-11 16:18 | Cons- Infect Disease ---
General Information and HPI Consulting Request Date of Consult: 11/11/16 Requested By: DIPTI HOPKINS MD Reason for Consult: Empyema right chest Source of Information: patient History of Present Illness: This is a 51-year-old woman smoker with a history of hypertension and hypothyroidism, treated for a sinusitis with a 10 day course of Augmentin several weeks prior to admission after presenting to a walk-in clinic with URI symptoms, seen at a walk-in clinic again 4 days prior to admission with right upper to mid back pain, cough productive of white sputum and shortness of breath , treated with Naprosyn for "muscle strain" with a chest x-ray reportedly negative, admitted on November 08 after presenting to the emergency room with worsening back pain, persistent shortness of breath and cough with no fevers or chills. On admission she was afebrile. Laboratory data revealed a white blood cell count of 25,000, BUN/creatinine 13 and 0.8, bilirubin 1.4, with normal liver enzymes, INR 1.35. Urinalysis rare RBC/1-3 WBCs. X-ray of the right ribs revealed patchy opacities in both lung bases, right greater than left, and a small to moderate right-sided pleural effusion. CT of the chest, abdomen and pelvis revealed an elevated right hemidiaphragm with a large right-sided pleural effusion and associated near-complete right lower lobe collapse, moderate right middle lobe collapse and a lesser degree of right upper lobe collapse. She was begun on Ceftriaxone and Azithromycin. She remained afebrile but her white blood cell count remained elevated and on November 10 she underwent drainage of 950 mL of clear pleural fluid from the apical collection and 30 mL of cloudy yellow pleural fluid from the posterior lower collection. She feels improved with control of her right sided back pain with pain medication but notes a continued cough, productive of yellow sputum. She is scheduled for placement of a pigtail catheter in the right chest later today. Allergies/Medications Allergies: Coded Allergies: No Known Allergies (11/08/16) Home Med List: Amlodipine Besylate 5 MG TABLET 1 TAB PO DAILY HTN (Reported) Levothyroxine Sodium 50 MCG TABLET 1 TAB PO DAILY THYROID (Reported) Lisinopril 10 MG TABLET 1 TAB PO DAILY HTN (Reported) Naproxen Sodium 550 MG TABLET 1 TAB PO BID PAIN (Reported) Past History Travel History Traveled to [place] past 21 day No Medical History Blood Transfusion Hx: No Neurological: NONE EENT: hearing loss (right ear) Cardiovascular: hypertension Respiratory: NONE Gastrointestinal: COLON RESECTION Hepatic: NONE Renal: NONE Musculoskeletal: NONE Psychiatric: NONE Endocrine: hypothyroidism Blood Disorders: NONE Cancer(s): NONE USED [employer]TER/Reproductive: NONE History of MRSA: No History of VRE: No History of CDIFF: No Isolation History: Standard Surgical History Surgical History: colon resection , cervical spine surgery Psychosocial History Smoking Status: Current Everyday Smoker ETOH Use: occasional use Illicit Drug Use: marijuana Review of Systems Review of Systems All Other Systems: Reviewed and Negative Exam & Diagnostic Data Last 24 Hrs of Vital Signs/I&O Vital Signs Date Time Temp Pulse Resp B/P B/P Pulse O2 O2 Flow FiO2 Mean Ox Delivery Rate 11/11 1420 98.8 106 18 160/70 95 Nasal 2.0L Cannula 11/11 1244 140/68 11/11 0936 98.0 104 20 170/60 11/11 0936 98.0 104 20 170/60 11/11 0845 96 Nasal 2.0L Cannula 11/11 0800 Nasal 2.0L Cannula 11/11 0727 98.0 104 20 170/90 95 Nasal 2.0L Cannula 11/11 0522 98 Nasal 2.0L Cannula 11/11 0000 Nasal 2.0L Cannula 11/10 2130 98.0 97 19 160/74 98 Nasal 2.0L Cannula 11/10 1929 92 Nasal 2.0L Cannula 11/10 1656 98.3 92 18 126/70 95 Nasal 2.0L Cannula 11/10 1600 95 Nasal 2.0L Cannula Intake & Output 11/11 1600 11/11 0800 11/11 0000 Intake Total 120 1080 Output Total Balance 120 1080 Intake, IV 280 Intake, Oral 120 800 Physical Exam Other Physical Findings: She is awake and alert in no acute distress. She is afebrile. Skin reveals no rash. HEENT exam good dentition. Neck is supple with no adenopathy. Lungs crackles on the right. Heart regular rhythm with no murmur. Abdomen is soft, nontender with positive bowel sounds. Back no CVA tenderness. Extremities no cyanosis, clubbing or edema. Neuro is without focality. Last 24 Hours of Lab Results: Laboratory Tests 11/11 0744 Chemistry Sodium (137 - 145 mmol/L) 135 L Potassium (3.5 - 5.1 mmol/L) 4.4 Chloride (98 - 107 mmol/L) 96 L Carbon Dioxide (22 - 30 mmol/L) 28 Anion Gap (5 - 16) 11 BUN (7 - 17 mg/dL) 6 L Creatinine (0.5 - 1.0 mg/dL) 0.7 Estimated GFR (>60 ml/min) > 60 BUN/Creatinine Ratio (7 - 25 %) 8.6 Coagulation PT (9.4 - 12.5 SEC) 13.8 H INR (0.90 - 1.19) 1.32 H Hematology CBC w Diff MAN DIFF ORDERED WBC (4.8 - 10.8 /CUMM) 23.3 H RBC (4.20 - 5.40 /CUMM) 4.61 Hgb (12.0 - 16.0 G/DL) 13.1 Hct (37 - 47 %) 39.8 MCV (81.0 - 99.0 FL) 86.5 MCH (27.0 - 31.0 PG) 28.5 RDW (11.5 - 14.5 %) 14.1 Plt Count (130 - 400 /CUMM) 362 MPV (7.4 - 10.4 FL) 8.6 Gran % (42.2 - 75.2 %) 87.0 H Lymphocytes % (20.5 - 51.1 %) 4.1 L Monocytes % (1.7 - 9.3 %) 8.4 Eosinophils % (0 - 5 %) 0.1 Basophils % (0.0 - 2.0 %) 0.4 Absolute Granulocytes (1.4 - 6.5 /CUMM) 20.2 H Segmented Neutrophils (42.2 - 75.2 %) 90 H Band Neutrophils (0.0 - 5.0 %) 1 Absolute Lymphocytes (1.2 - 3.4 /CUMM) 1.0 L Lymphocytes (20.5 - 51.1 %) 4 L Monocytes (1.7 - 9.3 %) 5 Absolute Monocytes (0.10 - 0.60 /CUMM) 2.0 H Absolute Eosinophils (0.0 - 0.7 /CUMM) 0 Absolute Basophils (0.0 - 0.2 /CUMM) 0.1 Platelet Estimate (ADEQUATE) VERIFIED BY SMEAR Normocytic RBCs VERIFIED Normochromic RBCs VERIFIED PUBS MCHC (33.0 - 37.0 G/DL) 32.9 L Last 24 Hours of Javon Results: Blood cultures 2 November 08 negative Urine culture November 08 negative Urine strep pneumo antigen and Legionella antigen November 09 negative Sputum culture November 09 mixed lopez with scant growth of yeast, with gram stain revealing many white blood cells, many gram-positive cocci and moderate gram- positive rods Right pleural fluid culture from the posterior lower collection no growth after 1 day, with gram stain revealing moderate white blood cells, rare gram-positive cocci, moderate gram-negative rods and rare gram-positive rods Right pleural fluid culture from the upper collection no growth after 1 day, with gram stain revealing many white blood cells and no organisms Sputum culture November 11 pending with gram stain revealing many white blood cells, few gram-positive cocci, many tiny gram negative rods and rare gram-positive rods Diagnostic Data Recent Imaging Findings: X-ray of the right ribs November 08 revealed patchy opacities in both lung bases, right greater than left, and a small to moderate right-sided pleural effusion. CT of the chest, abdomen and pelvis November 08 revealed an elevated right hemidiaphragm with a large right-sided pleural effusion and associated near- complete right lower lobe collapse, moderate right middle lobe collapse and a lesser degree of right upper lobe collapse. Chest x-ray November 11, personally reviewed, reveals a large right apical mass and a large pleural effusion that has increased in size compared to the previous study with near total opacification of the right hemithorax; left lung is clear Assessment/Plan Assessment/Plan Impression: This is a 51-year-old woman smoker with a history of hypertension and hypothyroidism, treated several weeks prior to admission with Augmentin for sinusitis admitted on November 08 with a 4 day history of right-sided back pain, cough and increasing shortness of breath, found to be afebrile with a significant leukocytosis and with chest x-ray and CT scan of the chest revealing a right pleural effusion, status post thoracentesis of 2 collections on November 10, with the fluid from the posterior lower collection suggestive of an empyema, with a pH of 6.85 and a white blood cell count over 30,000 and with the gram stain suggesting multiple organisms. She has a persistent leukocytosis, possibly secondary to residual fluid, for which placement of a pigtail catheter is planned later today, but her current antibiotic regimen does not cover anaerobes, which are likely involved in this infection. Her antibiotics regimen , therefore, will need to be adjusted. Of interest the larger, apical collection is not suggestive of an empyema. Suggestion: 1. Await placement of a pigtail catheter later today if residual fluid is identified 2. Follow-up pleural fluid cytology and cultures 3. Discontinue Ceftriaxone and Azithromycin 4. Begin Unasyn 3 g IV every 6 hours pending above Consult Acknowledgment - Thank you for your consult request.
--- NOTE | 2016-11-11 18:50 | RADIOLOGY REPORT ---
EXAMINATION:\H\ \N\XR CHEST CLINICAL INFORMATION: Status post right-sided chest tube insertion. COMPARISON: Chest x-ray 11/11/2016. TECHNIQUE: Frontal view of the chest was obtained. FINDINGS: Single AP view of the chest demonstrates interval placement of a right-sided pigtail catheter which is visualized traversing the right lateral chest wall and terminating along the medial aspect of the right hemithorax. There has been slight interval decrease in size of the previously noted right-sided pleural effusion and slight interval improved aeration of the right midlung. The left lung is hypoinflated. Cardiomediastinal contours remain partially obscured. No visible pneumothoraces. No acute osseous abnormality. Mechanical hardware related to prior anterior cervical discectomy and fusion. IMPRESSION: Interval placement of a right-sided pigtail catheter which is visualized traversing the right lateral chest wall and terminating along the medial aspect of the right hemithorax. There has been slight interval decrease in size of the previously noted right-sided pleural effusion and slight interval improved aeration of the right midlung.
--- NOTE | 2016-11-11 20:37 | CT SCAN REPORT ---
PROCEDURE: CT GUIDED CHEST TUBE PLACEMENT INDICATION: 51-year-old woman initially presenting with right-sided chest pain and cough with a chest CT demonstrating 2 loculated right pleural effusions. These collections were tapped under sonographic guidance on 11/10/2016. The lower pleural collection showed evidence of gram-negative rods and Gram stain. Chest tube placement requested for presumed empyema. HEAD OF ADVERTISING: Ariel Tamez M.D. CONSENT: The procedure was requested by Dr. Jalen Emery. Informed consent was obtained from the patient prior to the procedure. During this process, the procedure and potential alternatives were explained along with the intended outcome and benefits. The risks of the procedure, including the possibility of an unsuccessful procedure as well as the risk of not doing the procedure were discussed. The patient was given the opportunity to ask any questions regarding the procedure and appeared competent to make medical decisions. A signed consent form which documents this discussion was placed in the medical record. The patient prior imaging studies were reviewed A timeout procedure was performed. TECHNIQUE/FINDINGS: Appropriate pre-procedure medical history and imaging studies were reviewed. The patient was placed prone in the CT gantry with the right side elevated. The patient was rescanned through the entire chest with a grid present on her posterior right back. There was a residual fluid collection in the apex of the right chest. There is a separate larger loculated pleural effusion lower wrapping around the lateral and posterior aspect of the chest with extensive consolidation of the right lung. IV conscious sedation was induced under my direction and supervision using Versed and fentanyl. The patient was continuously monitored by registered nurse. At no time was there evidence of instability. An area of the patient's lower posterolateral right chest was prepped and draped in the standard sterile fashion. 10 mL of 1% lidocaine was used to obtain local anesthesia of the skin and deeper tissues. A Franks-Isidro needle was then used to access the posterior inferior pleural cavity under CT fluoroscopic guidance. A stiff Amplatz guidewire was then placed through the needle into the pleural space. The access site was then sequentially dilated using dilators to 14 Croatian. A 14 Fr. nonlocking catheter was then advanced over the wire into the lower right chest cavity posteriorly directed towards the spine. The wire was removed and the catheter was secured to the skin with a single 2-0 nylon suture and a StatLock. Approximately 240 mL purulent appearing fluid was drained by manual suction. Specimens were sent for culture and sensitivity. Repeat scans showed the presence of significant residual pleural fluid. A sterile dressing was placed over the site. The catheter was then connected to a closed chest drainage system. The patient tolerated the procedure well without evidence of complications. SEDATION TIME: 30 minutes SEDATION MEDICATIONS: 2.5 mg of Versed, 125 mcg of fentanyl Estimated radiation dose: 897.3 mGy-cm IMPRESSION: Successful right CT-guided chest tube placement as described for a presumed empyema. Significant residual loculated fluid seen on the postplacement CT. The patient may require infusion of TPA for further treatment.
[2016-11-11 22:31] VITALS: BP 150/67
[2016-11-12 03:29] VITALS: BP 120/58
[2016-11-12 06:55] VITALS: BP 144/60
--- NOTE | 2016-11-12 07:27 | PN- Housestaff ---
ROXANN ZULUAGA 11/12/16 0726: Subjective Follow-up For: #Community-acquired pneumonia #Right side pleural effusion s/p pig tail catheter placement #Lung collapse #Leukocytosis #Pulmonary nodules #Hypertension #Hypothyroidism #History of smoking Complaints: pain scale (0-10) Subjective: Patient was seen and examined this morning. She is alert awake and oriented to time place and person. she is status post right-sided thoracocentesis-drainage of 950 mL yellow fuid. She underwent placement of a right-sided pigtail catheter which has drained significantly. She feels markedly improved post drainage. She does note however that she now has a dry cough. She is much less short of breath. She is able to ambulate without being severely dyspneic. Overall she feels she is improving denies any other complaints today. Denies any fever, chills. Vitals stable afebrile, heart rate 80, respiratory rate 20, blood pressure 130/ 70, saturating at 94 on 2 L nasal cannula Review of Systems Constitutional: Reports: see HPI. Objective Last 24 Hrs of Vital Signs/I&O Vital Signs Date Time Temp Pulse Resp B/P B/P Pulse O2 O2 Flow FiO2 Mean Ox Delivery Rate 11/12 1406 98.2 96 24 122/72 96 11/12 0937 98.5 95 20 152/72 11/12 0936 95 152/72 11/12 0854 96 Nasal 1.5L Cannula 11/12 0800 95 Nasal 2.0L Cannula 11/12 0655 98.5 94 20 144/60 95 Nasal 2.0L Cannula 11/12 0329 98.5 81 20 120/58 96 11/12 0000 95 Nasal 2.0L Cannula 11/11 2231 98.4 106 19 150/67 95 Nasal Cannula 11/11 2105 95 Nasal 1.5L Cannula 11/11 1600 93 Nasal 2.0L Cannula Intake & Output 11/12 1600 11/12 0800 11/12 0000 Intake Total 1000 780 630 Output Total 90 100 700 Balance 910 680 -70 Intake, IV 120 300 150 Intake, Oral 880 480 480 Output, Chest 90 100 200 Tube Drainage Output, Urine 500 Patient 105.687 kg Weight Physical Exam General Appearance: Alert, Oriented X3, Cooperative, No Acute Distress Skin: No Rashes, No Breakdown HEENT: Atraumatic, PERRLA, EOMI, Mucous Membr. moist/pink Neck: Supple, No JVD, No thryomegaly Lymphatic: Cervical nl Cardiovascular: Normal S1, Normal S2 Lungs: Normal Air Movement, scattered rhonchi Abdomen: Normal Bowel Sounds, Soft, No Tenderness Extremities: No Clubbing, No Cyanosis, No Edema Vascular: Normal Pulses, Pulses Symmetrical Current Medications: Current Medications Sig/Cherry Start time Last Medication Dose Route Stop Time Status Admin Acetaminophen 650 MG Q6P PRN 11/08 2300 AC PO Albuterol Sulfate 3 ML BID 11/09 1137 AC 11/12 INH 0851 Amlodipine Besylate 5 MG DAILY 11/09 1000 AC 11/12 PO 0936 Ampicillin Sodium/ 3,000 MG Q6 11/11 1800 AC 11/12 Sulbactam Sodium IV 1150 Sodium Chloride 100 ML Azithromycin 500 MG Q24H 11/09 2044 DC 11/10 Sodium Chloride 250 ML IV 2104 Ceftriaxone Sodium 1,000 MG Q24H 11/09 204 DC 11/10 IV 2104 Docusate Sodium 100 MG DAILY NEEDED PRN 11/10 1100 AC 11/10 PO 1424 Fentanyl Citrate 0 .STK-MED ONE 11/11 1653 DC .ROUTE Guaifenesin/ 10 ML Q6 11/12 1000 AC 11/12 Dextromethorphan PO 1149 Ibuprofen 600 MG .STK-MED ONE 11/12 0517 DC PO 11/12 0518 Ibuprofen 600 MG .STK-MED ONE 11/11 1929 DC PO 11/11 1930 Ibuprofen 600 MG Q6P PRN 11/08 2300 AC 11/12 PO 0518 Levothyroxine Sodium 0.05 MG DAILY AC 11/09 0700 AC 11/12 PO 0513 Lidocaine 1 ML .STK-MED ONE 11/11 1841 DC ID 11/11 1842 Lisinopril 10 MG DAILY 11/09 1000 AC 11/12 PO 0937 Midazolam HCl 0 .STK-MED ONE 11/11 1653 DC .ROUTE Morphine Sulfate 2 MG Q4 HRS NEEDED PRN 11/09 1815 AC 11/11 IV 0143 Polyethylene Glycol 17 GM DAILY PRN 11/10 1100 AC 11/10 PO 1424 Last 24 Hrs of Lab/Javon Results Last 24 Hrs of Labs/Mics: Laboratory Tests 11/12/16 0758: CBC w Diff MAN DIFF ORDERED, RBC 4.37, MCV 85.2, MCH 28.4, RDW 14.0, MPV 8.2, Gran % 84.6 H, Lymphocytes % 6.0 L, Monocytes % 9.2, Eosinophils % 0.2, Basophils % 0 L, Absolute Granulocytes 14.4 H, Absolute Lymphocytes 1.0 L, Absolute Monocytes 1.6 H, Absolute Eosinophils 0, Absolute Basophils 0, Platelet Estimate ADEQUATE, Normocytic RBCs VERIFIED, Normochromic RBCs VERIFIED , PUBS MCHC 33.4 Assessment/Plan Assessment: Ms. Haney is 51 year old female with past medical history significant for hypertension, hypothyroidism, current smoker, right ear nerve deafness, diverticulitis status post colon resection who presented to ED with chief complaint of right lateral neck and thoracic chest pain for the last 5 days. Patient stated that the pain was so severe that she presented to urgent care facility and had an x-ray with unremarkable results. She was prescribed naproxen but her symptoms did not improve. Pain is pleuritic in nature and increases with movement. On admission Vital signs temperature 97.3, pulse 92, blood pressure 161/80, respiratory rate 18 saturating 92%. Pertinent WBC 25.3, H&H 14.8/44.3, platelet 329, sodium 133, potassium 5, BUN/ creatinine 13/0.8, lactic acid 1.2, INR 1.35. Ribs x-ray showed, Low lung volumes with basilar atelectasis with right-sided effusion. No fractures are seen. CT chest abdomen and pelvis with contrast showed, Right-sided pleural effusion with near-complete right lower lobe collapse. Moderate right middle lobe collapse, and mild right upper lobe collapse. Effusion is indeterminate in etiology. Indeterminate solitary 6 mm pulmonary nodules, other nodules in the collapsed portions of the right lung are not excluded. Problem list #Community-acquired pneumonia #Right side pleural effusion #Lung collapse #Leukocytosis #Pulmonary nodules #Hypertension #Hypothyroidism #History of smoking Multilobar Community-acquired pneumonia/acute hypoxic respiratory insufficiency Patient presented to Hospital with ongoing chest pain, shortness of breath, cough associated with sputum production. Also reported night sweats. Denied any fever or chills. She is afebrile with a WBC count elevated on admission 25, 000. CAT scan chest suggestive of right-sided pleural effusion with the right lower lung complete collapse and mild to moderate collapse of right upper and middle lobes. * Admitted to general medicine floor for further management of pneumonia and pleural effusion * vitals closely every shift * Maintain oxygen saturation greater than 90% * Provide supplemental oxygen if necessary * Monitor closely for worsening leukocytosis, fever, shortness of breath * received IV ceftriaxone and IV azithromycin for 4 days for community-acquired pneumonia. switched to unasyn day2 for better coverage of anearobes * leukocytosis resolving- [id number] to [id number]. Remained afebrile. * robutussin with codeine for cough * Total respiratory care * Nebulizer and inhaler treatments * Pain management * Legionella, strep were negative * Follow blood cultures * Follow-up sputum cultures * Follow-up urine cultures * EKG, troponins negative * Shopper Insights Manager on board * ID on board Right-sided pleural effusion/ empyema Patient presented to emergency department for evaluation of right-sided chest pain. CAT scan chest showed large right pleural effusion with right lower lobe complete collapse and mild to moderate collapse of right upper lobe and middle lobe. Elevated wbc 26,000 on admission with bandemia however denies any fever. * Right-sided pleural effusion most likely from malignancy versus pneumonia. * leukocytosis, possibly from pleural effusion with empyema. * thoracocentesis therapeutic and diagnostic- Ultrasound-guided right-sided chest aspiration x2 with evacuation of 950 mL from the right apical collection. Only 30 mL could be evacuated from the lower collection. This lower collection fluid appeared slightly cloudy. Pleural fluid analysis showed WBC 33,000, LDH 23721, pH 6.85-suggestive of EXUDATIVE pleural effusion. Glucose was less than 20, amylase less than 30.. Gram stain and cultures were pending * Pleural fluid cytology, culture- f/u * Repeat chest x-ray after thoracocentesis revealed a right apical mass and worsening pleural effusion right side * CT-guided thoracocentesis right side pigtail catheter placement- 11/11/2016. Right lung nodule Indeterminate solitary 6 mm pulmonary nodules, other nodules in the collapsed portions of the right lung are not excluded. Small indeterminate mediastinal nodes. Single solid nodule average size 6-8 mm: * Low Risk Patient: CT at 6-12 months; then consider CT at 18-24 months. * High Risk Patient: CT at 6-12 months, then CT at 18-24 months. * Certain patients at high risk with suspicious nodule morphology, upper lobe location, or both may warrant 12-month follow-up. Hypertension Continue home medication of amlodipine 5 mg Continue home medications lisinopril 10 mg Hypothyroidism Continue home medication levothyroxine 50 g daily Smoker Patient continues to smoke half pack every day Smoking cessation provided Nicotine patch Constipation Bowel regimen was added DVT prophylaxis alps Full code Pain pathway Tylenol Motrin and morphine Heart healthy diet Problem List: 1. Pneumonia 2. Lung collapse 3. Pleural effusion Pain Ratin Pain Location: right chest Pain Goal: Remain pain free Pain Plan: tylenol Tomorrow's Labs & Rationales: cbc in the setting of leukocytosis DIPTI HOPKINS MD 11/12/16 2104: Attending MD Review Statement Attending Statement Attending MD Statement: examined this patient, discuss w/resident/PA/OFFICE MACHINE INSPECTOR, agreed w/resident/PA/OFFICE MACHINE INSPECTOR, reviewed EMR data (avail), discussed with nursing, discussed with case mgmt, amended to note Attending Assessment/Plan: The patient was seen and discussed with house staff. Appreciate pulmonary follow -up. Clinically improved. 400 cc drainage from pleural fluid and WBC significantly decreased today. Will continue Unasyn as per ID. Follow pleural fluid output. Await final cultures and cytology.
[2016-11-12 08:32] LABS: ABSOLUTE BASOPHIL COUNT 0 /CUMM (0.0-0.2); ABSOLUTE EOSINOPHIL COUNT 0 /CUMM (0.0-0.7); ABSOLUTE GRANULOCYTE CT 14.4 /CUMM (1.4-6.5); ABSOLUTE MONOCYTE COUNT 1.6 /CUMM (0.10-0.60); BASOPHIL % 0 % (0.0-2.0); EOSINOPHIL % 0.2 % (0-5); GRANULOCYTE % 84.6 % (42.2-75.2); HEMATOCRIT 37.2 % (37-47); MEAN CORPUSCULAR HGB 28.4 PG (27.0-31.0); MEAN CORPUSCULAR HGB CONC 33.4 G/DL (33.0-37.0); MEAN CORPUSCULAR VOLUME 85.2 FL (81.0-99.0); MEAN PLATELET VOLUME 8.2 FL (7.4-10.4); PLATELET COUNT 385 /CUMM (130-400); RED BLOOD CELL CT 4.37 /CUMM (4.20-5.40)
--- NOTE | 2016-11-12 08:58 | PN- Pulmonary ---
Subjective HPI/Critical Care Issues: The patient is awake and alert. She underwent placement of a right-sided pigtail catheter which has drained significantly. She feels markedly improved post drainage. She does note however that she now has a dry cough. She is much less short of breath. She is able to ambulate without being severely dyspneic. Overall she feels she is improving denies any other complaints today. Objective Current Medications: Current Medications Sig/Cherry Start time Last Medication Dose Route Stop Time Status Admin Acetaminophen 650 MG Q6P PRN 11/08 2300 AC PO Albuterol Sulfate 3 ML BID 11/09 1137 AC 11/12 INH 0851 Amlodipine Besylate 5 MG DAILY 11/09 1000 AC 11/11 PO 0936 Ampicillin Sodium/ 3,000 MG Q6 11/11 1800 AC 11/12 Sulbactam Sodium IV 0513 Sodium Chloride 100 ML Azithromycin 500 MG Q24H 11/09 2045 DC 11/10 Sodium Chloride 250 ML IV 2104 Ceftriaxone Sodium 1,000 MG Q24H 11/09 2045 DC 11/10 IV 2104 Docusate Sodium 100 MG DAILY NEEDED PRN 11/10 1100 AC 11/10 PO 1424 Fentanyl Citrate 0 .STK-MED ONE 11/11 1653 DC .ROUTE Ibuprofen 600 MG .STK-MED ONE 11/11 1929 DC PO 11/11 1930 Ibuprofen 600 MG Q6P PRN 11/08 2300 AC 11/12 PO 0518 Levothyroxine Sodium 0.05 MG DAILY AC 11/09 0700 AC 11/12 PO 0513 Lidocaine 1 ML .STK-MED ONE 11/11 1841 DC ID 11/11 1842 Lisinopril 10 MG DAILY 11/09 1000 AC 11/11 PO 0936 Midazolam HCl 0 .STK-MED ONE 11/11 1653 DC .ROUTE Morphine Sulfate 2 MG Q4 HRS NEEDED PRN 11/09 1815 AC 11/11 IV 0143 Patient Medication 1 ED .STK-MED ONE 11/11 1358 DC Teaching ED 11/11 1359 Polyethylene Glycol 17 GM DAILY PRN 11/10 1100 AC 11/10 PO 1424 Vital Signs & I&O Last 24 Hrs of Vitals and I&O: Vital Signs Date Time Temp Pulse Resp B/P B/P Pulse O2 O2 Flow FiO2 Mean Ox Delivery Rate 11/12 0800 95 Nasal 2.0L Cannula 11/12 0655 98.5 94 20 144/60 95 Nasal 2.0L Cannula 11/12 0329 98.5 81 20 120/58 96 11/12 0000 95 Nasal 2.0L Cannula 11/11 2231 98.4 106 19 150/67 95 Nasal Cannula 11/11 2105 95 Nasal 1.5L Cannula 11/11 1600 93 Nasal 2.0L Cannula 11/11 1420 98.8 106 18 160/70 95 Nasal 2.0L Cannula 11/11 1244 140/68 11/11 0936 98.0 104 20 170/60 11/11 0936 98.0 104 20 170/60 Intake & Output 11/12 1600 11/12 0800 11/12 0000 Intake Total 780 630 Output Total 100 700 Balance 680 -70 Intake, IV 300 150 Intake, Oral 480 480 Output, Chest 100 200 Tube Drainage Output, Urine 500 Physical Exam General Appearance: no apparent distress, alert, awake, anxious, comfortable Head: atraumatic, normal appearance Neck: supple Respiratory: improved air entry at the right lung base, still with scattered rhonchi Cardiovascular: regular rate/rhythm Gastrointestinal: normal bowel sounds, soft, non-tender Extremities: no edema Skin: intact, normal color, warm/dry Impression/Plan Impression/Plan Impression/Plan: 1. Possible empyema noting the posterior lower collection suggests infection however the large apical collection does not suggest infection. The patient underwent placement of a right-sided pigtail catheter with some improvement in the right-sided pleural effusion and aeration of the right midlung. Cultures are negative to date. The patient has been changed over to IV Unasyn for anaerobic coverage. Cytology on pleural fluid is pending. 2. Tobacco use disorder. 3. Multiple comorbidities including hypertension, hypothyroidism, obesity and right ear deafness. Recommendations: * Add Robitussin with codeine for the dry irritating cough. * Continue nebs/TRC. * Follow-up cultures. * Continue IV Unasyn as recommended by ID. * Follow-up cytology results. * Continue with pain management. * Taper oxygen down to off if able. * Continue home medications as necessary. * Continue all supportive care. * DVT prophylaxis at all times.
[2016-11-12 14:06] VITALS: BP 122/72
--- NOTE | 2016-11-12 16:11 | PN- Infect Dx ---
Subjective Subjective: Afebrile. She feels much improved with no complaints of right sided back pain. Her cough has also improved and is mostly dry. Objective Last 24 Hrs of Vital Signs/I&O Vital Signs Date Time Temp Pulse Resp B/P B/P Pulse O2 O2 Flow FiO2 Mean Ox Delivery Rate 11/12 1406 98.2 96 24 122/72 96 11/12 0937 98.5 95 20 152/72 11/12 0936 95 152/72 11/12 0854 96 Nasal 1.5L Cannula 11/12 0800 95 Nasal 2.0L Cannula 11/12 0655 98.5 94 20 144/60 95 Nasal 2.0L Cannula 11/12 0329 98.5 81 20 120/58 96 11/12 0000 95 Nasal 2.0L Cannula 11/11 2231 98.4 106 19 150/67 95 Nasal Cannula 11/11 2105 95 Nasal 1.5L Cannula Intake & Output 11/12 1600 11/12 0800 11/12 0000 Intake Total 1000 780 630 Output Total 90 100 700 Balance 910 680 -70 Intake, IV 120 300 150 Intake, Oral 880 480 480 Output, Chest 90 100 200 Tube Drainage Output, Urine 500 Patient 233 lb Weight Physical Exam Other Physical Findings: She appears comfortable in no acute distress Lungs decreased breath sounds on the right; pigtail catheter in the right upper chest with 200 mL output yesterday and 190 mL overnight Results Last 24 Hours of Lab Results: Laboratory Tests 11/12 0758 Hematology CBC w Diff MAN DIFF ORDERED WBC (4.8 - 10.8 /CUMM) 17.0 H RBC (4.20 - 5.40 /CUMM) 4.37 Hgb (12.0 - 16.0 G/DL) 12.4 Hct (37 - 47 %) 37.2 MCV (81.0 - 99.0 FL) 85.2 MCH (27.0 - 31.0 PG) 28.4 RDW (11.5 - 14.5 %) 14.0 Plt Count (130 - 400 /CUMM) 385 MPV (7.4 - 10.4 FL) 8.2 Gran % (42.2 - 75.2 %) 84.6 H Lymphocytes % (20.5 - 51.1 %) 6.0 L Monocytes % (1.7 - 9.3 %) 9.2 Eosinophils % (0 - 5 %) 0.2 Basophils % (0.0 - 2.0 %) 0 L Absolute Granulocytes (1.4 - 6.5 /CUMM) 14.4 H Absolute Lymphocytes (1.2 - 3.4 /CUMM) 1.0 L Absolute Monocytes (0.10 - 0.60 /CUMM) 1.6 H Absolute Eosinophils (0.0 - 0.7 /CUMM) 0 Absolute Basophils (0.0 - 0.2 /CUMM) 0 Platelet Estimate (ADEQUATE) ADEQUATE Normocytic RBCs VERIFIED Normochromic RBCs VERIFIED PUBS MCHC (33.0 - 37.0 G/DL) 33.4 Last 24 Hours of Javon Results: Blood cultures 2 November 08 negative Pleural fluid culture November 10 from the lower collection positive for alpha strep and probable anaerobes Pleural fluid culture November 10 from the upper collection negative Sputum culture November 11 mixed lopez Recent Imaging Studies: Chest x-ray November 11, personally reviewed, status post placement of a right-sided pigtail catheter with decrease in size of the right pleural effusion and slight interval improved aeration of the right midlung Assessment/Plan Impression: Improved status post placement of a pigtail catheter with drainage of 240 mL of purulent fluid yesterday with temperatures remaining normal and white blood cell count decreasing on Unasyn for a probable polymicrobial empyema, with alpha strep and probable anaerobes isolated. Suggestion: 1. Further management of the pigtail catheter per Pulmonary 2. Follow-up pleural fluid cytology and final cultures 3. Continue Unasyn
--- NOTE | 2016-11-12 16:23 | Patient Discharge Instructions ---
Discharge Instructions General Discharge Information You were seen/treated for: 1. Community-acquired pneumonia 2. Right side pleural effusion s/p thoracocentesis and right pig tail catheter placement. Now pig-tails removed. Do NOT SWIM! Until you are cleared by zigzag machine operator or the wounds have closed. 3. Lung collapse- con't use of IS. Follow pulm doctor 4. Pulmonary nodules-need to follow up with pulm doctor You had these procedures: right side thoracocentesis 2x pig tail catheter placement Watch for these problems: 1. fever 2. chest pain 3. shortness of breath 4. wound/skin infection in site of catheter insertion Special Instructions: Please f/u pcp in one week after discharge Please f/u zigzag machine operator in one week after discharge Please get follow up imaging as directed Finish antibiotic course (2-4 wks) You will need a REPEAT CT IN TWO WEEKS! Depending on CT, you may require further antibioticx Diet Continue normal diet: Yes Activity Full Activity/No Limits: No Activity Self Limited: Yes Acute Coronary Syndrome Inclusion Criteria At DC or during hospital stay patient has or had the following: ACS DIAGNOSIS No Discharge Core Measures Meds if any: Prescribed or Continued at Discharge Meds if any: NOT Prescribed or Continued at Discharge Congestive Heart Failure Inclusion Criteria At DC or during hospital stay patient has or had the following: CHF DIAGNOSIS No Discharge Core Measures Meds if any: Prescribed or Continued at Discharge Meds if any: NOT Prescribed or Continued at Discharge Cerebrovascular accident Inclusion Criteria At DC or during hospital stay patient has or had the following: CVA/TIA Diagnosis No Discharge Core Measures Meds if any: Prescribed or Continued at Discharge Meds if any: NOT Prescribed or Continued at Discharge Venous thromboembolism Inclusion Criteria VTE Diagnosis No VTE Type NONE VTE Confirmed by (Test) CT CHEST ANGIOGRAM Discharge Core Measures - Per Current guidelines, there needs to be overlap - treatment for the first 5 days of Warfarin therapy. - If discharged on Warfarin prior to 5 days of - overlap therapy, the patient will need to be - assessed for post discharge needs including - *Post discharge parental anticoagulation - *Warfarin and/or parental anticoagulation education - *Follow up date to check INR post discharge At least 5 days overlap therapy as Inpatient No Meds if any: Prescribed or Continued at Discharge Note: Overlap Therapy is Warfarin and Anticoagulant Meds if any: NOT Prescribed or Continued at Discharge
[2016-11-12 22:22] VITALS: BP 150/60
[2016-11-13 06:43] VITALS: BP 160/90
--- NOTE | 2016-11-13 08:13 | PN- Housestaff ---
ROXANN ZULUAGA 11/13/16 0813: Subjective Follow-up For: #Community-acquired pneumonia #Right side pleural effusion/empyema s/p pig tail catheter placement #Lung collapse #Leukocytosis #Pulmonary nodules #Hypertension #Hypothyroidism #History of smoking Complaints: pain scale (0-10) Subjective: Patient was seen and examined this morning. She is alert awake and oriented to time place and person. no Acute overnight events she is status post right-sided thoracocentesis- removal of 950 mL yellow fuid. She underwent placement of a right-sided pigtail catheter which has drained significantly. She feels markedly improved post drainage. She continues to have dry cough however he denies any sputum production She is much less short of breath. She is able to ambulate without being severely dyspneic. Overall she feels she is improving, denies any other complaints today. Denies any fever, chills. Vitals stable afebrile, heart rate 80, respiratory rate 20, blood pressure 130/ 70, saturating at 94 on room air. Review of Systems Constitutional: Reports: see HPI. Objective Last 24 Hrs of Vital Signs/I&O Vital Signs Date Time Temp Pulse Resp B/P B/P Pulse O2 O2 Flow FiO2 Mean Ox Delivery Rate 11/13 1119 92 Room Air Room Air 11/13 0850 158/82 11/13 0850 158/82 11/13 0800 95 Nasal 1.0L Cannula 11/13 0643 97.7 93 21 160/90 95 Nasal Cannula 11/13 0000 94 Nasal 1.0L Cannula 11/12 2222 99.6 105 23 150/60 94 Nasal Cannula 11/12 2024 95 Nasal 1.0L Cannula 11/12 1600 Nasal 1.5L Cannula 11/12 1406 98.2 96 24 122/72 96 Intake & Output 11/13 1600 11/13 0800 11/13 0000 Intake Total 600 360 Output Total 50 50 Balance 550 310 Intake, IV 300 120 Intake, Oral 300 240 Number 2 Bowel Movements Output, Chest 50 50 Tube Drainage Physical Exam General Appearance: Alert, Oriented X3, Cooperative, No Acute Distress Skin: No Rashes, No Breakdown HEENT: Atraumatic, PERRLA, EOMI, Mucous Membr. moist/pink Neck: Supple, No JVD, No thryomegaly Lymphatic: Cervical nl Cardiovascular: Regular Rate, Normal S1, Normal S2 Lungs: Normal Air Movement, scattered rhonchi Abdomen: Normal Bowel Sounds, Soft, No Tenderness Extremities: No Clubbing, No Cyanosis, No Edema Vascular: Pulses Symmetrical Current Medications: Current Medications Sig/Cherry Start time Last Medication Dose Route Stop Time Status Admin Acetaminophen 650 MG Q6P PRN 11/08 2300 AC PO Albuterol Sulfate 3 ML BID 11/09 1137 AC 11/13 INH 1119 Amlodipine Besylate 5 MG DAILY 11/09 1000 AC 11/13 PO 0850 Ampicillin Sodium/ 3,000 MG Q6 11/11 1800 AC 11/13 Sulbactam Sodium IV 1300 Sodium Chloride 100 ML Docusate Sodium 100 MG DAILY NEEDED PRN 11/10 1100 AC 11/10 PO 1424 Guaifenesin 600 MG Q12 11/13 1030 AC 11/13 PO 1259 Guaifenesin/ 10 ML Q6 11/12 1000 AC 11/13 Dextromethorphan PO 1259 Ibuprofen 600 MG .STK-MED ONE 11/12 2144 DC PO 11/12 2145 Ibuprofen 600 MG Q6P PRN 11/08 2300 AC 11/13 PO 1034 Levothyroxine Sodium 0.05 MG DAILY AC 11/09 0700 AC 11/13 PO 0601 Lisinopril 10 MG DAILY 11/09 1000 AC 11/13 PO 0850 Morphine Sulfate 2 MG Q4 HRS NEEDED PRN 11/09 1815 AC 11/11 IV 0143 Polyethylene Glycol 17 GM DAILY PRN 11/10 1100 AC 11/10 PO 1424 Last 24 Hrs of Lab/Javon Results Last 24 Hrs of Labs/Mics: Laboratory Tests 11/13/16 0810: CBC w Diff NO MAN DIFF REQ, RBC 4.49, MCV 86.1, MCH 28.2, RDW 14.0, MPV 8.1, Gran % 82.9 H, Lymphocytes % 7.0 L, Monocytes % 9.1, Eosinophils % 0.8, Basophils % 0.2, Absolute Granulocytes 13.7 H, Absolute Lymphocytes 1.2, Absolute Monocytes 1.5 H, Absolute Eosinophils 0.1, Absolute Basophils 0, PUBS MCHC 32.8 L Assessment/Plan Assessment: Ms. Haney is 51 year old female with past medical history significant for hypertension, hypothyroidism, current smoker, right ear nerve deafness, diverticulitis status post colon resection who presented to ED with chief complaint of right lateral neck and thoracic chest pain for the last 5 days. Patient stated that the pain was so severe that she presented to urgent care facility and had an x-ray with unremarkable results. She was prescribed naproxen but her symptoms did not improve. Pain is pleuritic in nature and increases with movement. On admission Vital signs temperature 97.3, pulse 92, blood pressure 161/80, respiratory rate 18 saturating 92%. Pertinent WBC 25.3, H&H 14.8/44.3, platelet 329, sodium 133, potassium 5, BUN/ creatinine 13/0.8, lactic acid 1.2, INR 1.35. Ribs x-ray showed, Low lung volumes with basilar atelectasis with right-sided effusion. No fractures are seen. CT chest abdomen and pelvis with contrast showed, Right-sided pleural effusion with near-complete right lower lobe collapse. Moderate right middle lobe collapse, and mild right upper lobe collapse. Effusion is indeterminate in etiology. Indeterminate solitary 6 mm pulmonary nodules, other nodules in the collapsed portions of the right lung are not excluded. Problem list #Community-acquired pneumonia #Right side pleural effusion #Lung collapse #Leukocytosis #Pulmonary nodules #Hypertension #Hypothyroidism #History of smoking Multilobar Community-acquired pneumonia/acute hypoxic respiratory insufficiency Patient presented to Hospital with ongoing chest pain, shortness of breath, cough associated with sputum production. Also reported night sweats. Denied any fever or chills. She is afebrile with a WBC count elevated on admission 25, 000. CAT scan chest suggestive of right-sided pleural effusion with the right lower lung complete collapse and mild to moderate collapse of right upper and middle lobes. * Admitted to general medicine floor for further management of pneumonia and pleural effusion * vitals closely every shift * Maintain oxygen saturation greater than 90% * Provide supplemental oxygen if necessary * Monitor closely for worsening leukocytosis, fever, shortness of breath * received IV ceftriaxone and IV azithromycin for 4 days for community-acquired pneumonia. * switched to unasyn day3 for better coverage of anearobes. * Right upper pleural fluid collection-no growth * Right lower pleural fluid collection-anaerobes and alpha strep * leukocytosis [place]- [id number] to [id number]. Remained afebrile. * robutussin with codeine and mucinex for cough * Total respiratory care * Nebulizer and inhaler treatments * Pain management * Legionella, strep were negative * Follow blood cultures- neg so far * Follow-up sputum cultures- yeast * Follow-up urine cultures- neg * EKG, troponins negative * Promotions Manager on board * ID on board Right-sided pleural effusion/ empyema Patient presented to emergency department for evaluation of right-sided chest pain. CAT scan chest showed large right pleural effusion with right lower lobe complete collapse and mild to moderate collapse of right upper lobe and middle lobe. Elevated wbc 26,000 on admission with bandemia however denies any fever. * Right-sided pleural effusion most likely from malignancy versus pneumonia. * leukocytosis, possibly from pleural effusion with empyema. * thoracocentesis therapeutic and diagnostic- Ultrasound-guided right-sided chest aspiration x2 with evacuation of 950 mL from the right apical collection. Only 30 mL could be evacuated from the lower collection. This lower collection fluid appeared slightly cloudy. Pleural fluid analysis showed WBC 33,000, LDH 56105, pH 6.85-suggestive of EXUDATIVE pleural effusion. Glucose was less than 20, amylase less than 30. * Right upper pleural fluid collection-no growth * Right lower pleural fluid collection-anaerobes and alpha strep * Pleural fluid cytology, - f/u * Repeat chest x-ray after thoracocentesis revealed a right apical mass and worsening pleural effusion right side * CT-guided thoracocentesis and right side pigtail catheter placement- 11/11/2016 - drainage of 500 mL pleural fluid so far Right lung nodule Indeterminate solitary 6 mm pulmonary nodules, other nodules in the collapsed portions of the right lung are not excluded. Small indeterminate mediastinal nodes. Single solid nodule average size 6-8 mm: * Low Risk Patient: CT at 6-12 months; then consider CT at 18-24 months. * High Risk Patient: CT at 6-12 months, then CT at 18-24 months. * Certain patients at high risk with suspicious nodule morphology, upper lobe location, or both may warrant 12-month follow-up. Hypertension Continue home medication of amlodipine 5 mg Continue home medications lisinopril 10 mg Hypothyroidism Continue home medication levothyroxine 50 g daily Smoker Patient continues to smoke half pack every day Smoking cessation provided Nicotine patch Constipation Bowel regimen was added DVT prophylaxis alps Full code Pain pathway Tylenol Motrin and morphine Heart healthy diet Problem List: 1. Pneumonia 2. Lung collapse 3. Pleural effusion Pain Ratin Pain Location: n/a Pain Goal: Remain pain free Pain Plan: Tylenol Motrin Tomorrow's Labs & Rationales: cbc in the setting of empyema DIPTI HOPKINS MD 11/13/162121: Attending MD Review Statement Attending Statement Attending MD Statement: examined this patient, discuss w/resident/PA/LEATHER TANNER, agreed w/resident/PA/LEATHER TANNER, discussed with family, reviewed EMR data (avail), discussed with nursing, discussed with case mgmt, amended to note Attending Assessment/Plan: The patient was seen and discussed with house staff. Agree with plan of care as outlined. WBC decreased further on Unasyn. Continue current care and monitor pleural fluid volume. As above, repeat CT when volume < 150 cc/d.
[2016-11-13 08:59] LABS: ABSOLUTE BASOPHIL COUNT 0 /CUMM (0.0-0.2); ABSOLUTE EOSINOPHIL COUNT 0.1 /CUMM (0.0-0.7); ABSOLUTE GRANULOCYTE CT 13.7 /CUMM (1.4-6.5); ABSOLUTE LYMPH COUNT 1.2 /CUMM (1.2-3.4); ABSOLUTE MONOCYTE COUNT 1.5 /CUMM (0.10-0.60); BASOPHIL % 0.2 % (0.0-2.0); EOSINOPHIL % 0.8 % (0-5); GRANULOCYTE % 82.9 % (42.2-75.2); HEMATOCRIT 38.7 % (37-47); MEAN CORPUSCULAR HGB 28.2 PG (27.0-31.0); MEAN CORPUSCULAR HGB CONC 32.8 G/DL (33.0-37.0); MEAN CORPUSCULAR VOLUME 86.1 FL (81.0-99.0); MEAN PLATELET VOLUME 8.1 FL (7.4-10.4); PLATELET COUNT 440 /CUMM (130-400); RED BLOOD CELL CT 4.49 /CUMM (4.20-5.40); WHITE BLOOD CELL COUNT 16.6 /CUMM (4.8-10.8)
--- NOTE | 2016-11-13 09:00 | PN- Pulmonary ---
Subjective HPI/Critical Care Issues: She is awake and alert. She reports feeling markedly improved. She has less shortness of breath and cough. She still feels soreness at the chest tube insertion site. She put out 50 ML from the chest tube over the past 24 hours. Her 24-hour MAXIMUM TEMPERATURE was 99.6. There were no overnight events reported. Her white blood cell count is currently pending. Objective Current Medications: Current Medications Sig/Cherry Start time Last Medication Dose Route Stop Time Status Admin Acetaminophen 650 MG Q6P PRN 11/08 2300 AC PO Albuterol Sulfate 3 ML BID 11/09 1137 AC 11/12 INH 2017 Amlodipine Besylate 5 MG DAILY 11/09 1000 AC 11/13 PO 0850 Ampicillin Sodium/ 3,000 MG Q6 11/11 1800 AC 11/13 Sulbactam Sodium IV 0507 Sodium Chloride 100 ML Docusate Sodium 100 MG DAILY NEEDED PRN 11/10 1100 AC 11/10 PO 1424 Guaifenesin/ 10 ML Q6 11/12 1000 AC 11/13 Dextromethorphan PO 0507 Ibuprofen 600 MG .STK-MED ONE 11/12 2144 DC PO 11/12 2145 Ibuprofen 600 MG Q6P PRN 11/08 2300 AC 11/12 PO 2144 Levothyroxine Sodium 0.05 MG DAILY AC 11/09 0700 AC 11/13 PO 0601 Lisinopril 10 MG DAILY 11/09 1000 AC 11/13 PO 0850 Morphine Sulfate 2 MG Q4 HRS NEEDED PRN 11/09 1815 AC 11/11 IV 0143 Polyethylene Glycol 17 GM DAILY PRN 11/10 1100 AC 11/10 PO 1424 Vital Signs & I&O Last 24 Hrs of Vitals and I&O: Vital Signs Date Time Temp Pulse Resp B/P B/P Pulse O2 O2 Flow FiO2 Mean Ox Delivery Rate 11/13 0850 158/82 11/13 0850 158/82 11/13 0643 97.7 93 21 160/90 95 Nasal Cannula 11/13 0000 94 Nasal 1.0L Cannula 11/122 99.6 105 23 150/60 94 Nasal Cannula 11/12 2024 95 Nasal 1.0L Cannula 11/12 1600 Nasal 1.5L Cannula 11/12 1406 98.2 96 24 122/72 96 11/12 0937 98.5 95 20 152/72 11/12 0936 95 152/72 Intake & Output 11/13 1600 11/13 0800 11/13 0000 Intake Total 600 360 Output Total 50 50 Balance 550 310 Intake, IV 300 120 Intake, Oral 300 240 Number 2 Bowel Movements Output, Chest 50 50 Tube Drainage Physical Exam General Appearance: no apparent distress, alert, awake, anxious, comfortable Head: atraumatic, normal appearance Neck: supple Respiratory: improved air entry at the right lung base, still with scattered rhonchi Cardiovascular: regular rate/rhythm Gastrointestinal: normal bowel sounds, soft, non-tender Extremities: no edema Skin: intact, normal color, warm/dry Results Last 24 Hrs of Lab Results: Laboratory Tests 11/13/16 0810: CBC w Diff Pending, WBC Pending, RBC Pending, Hgb Pending, Hct Pending, MCV Pending, MCH Pending, RDW Pending, Plt Count Pending, MPV Pending, PUBS MCHC Pending Impression/Plan Impression/Plan Impression/Plan: 1. Right-sided empyema, pleural fluid cultures positive for alpha strep. The patient has been changed over to IV Unasyn for anaerobic coverage. Cytology on pleural fluid is pending. 2. Tobacco use disorder. 3. Multiple comorbidities including hypertension, hypothyroidism, obesity and right ear deafness. Recommendations: * Robitussin with codeine for the dry irritating cough. * Continue nebs/TRC. * Continue IV Unasyn as recommended by ID. * Follow-up cytology results. * Continue with pain management. * Taper oxygen down to off if able. * Continue home medications as per the primary team. * Continue all supportive care. * DVT prophylaxis at all times.
--- NOTE | 2016-11-13 12:08 | NUR ---
PT'S O2 REMOVED PATIENT IS SATURATING WELL. PATIENT CONTINUES TO REMAIN 93-95% ON RA WITHOUT DISTRESS. HR 93-96 WITH AND WITHOUT O2. PATIENT AMBULATING WITHOUT THE O2 WITHOUT COMPLAINTS.
--- NOTE | 2016-11-13 12:54 | PN- Infect Dx ---
Subjective Subjective: Afebrile. She notes mild discomfort over the right upper back but denies any shortness of breath. Objective Last 24 Hrs of Vital Signs/I&O Vital Signs Date Time Temp Pulse Resp B/P B/P Pulse O2 O2 Flow FiO2 Mean Ox Delivery Rate 11/13 1119 92 Room Air Room Air 11/13 0850 158/82 11/13 0850 158/82 11/13 0800 95 Nasal 1.0L Cannula 11/13 0643 97.7 93 21 160/90 95 Nasal Cannula 11/13 0000 94 Nasal 1.0L Cannula 11/12 2222 99.6 105 23 150/60 94 Nasal Cannula 11/12 2024 95 Nasal 1.0L Cannula 11/12 1600 Nasal 1.5L Cannula 11/12 1406 98.2 96 24 122/72 96 Intake & Output 11/13 1600 11/13 0800 11/13 0000 Intake Total 600 360 Output Total 50 50 Balance 550 310 Intake, IV 300 120 Intake, Oral 300 240 Number 2 Bowel Movements Output, Chest 50 50 Tube Drainage Physical Exam Other Physical Findings: She appears comfortable in no acute distress Lungs are clear Chest pigtail catheter in the right upper chest with 50 mL output yesterday Heart regular rhythm with no murmur Extremities no cyanosis, clubbing or edema Results Last 24 Hours of Lab Results: Laboratory Tests 11/13 0810 Hematology CBC w Diff NO MAN DIFF REQ WBC (4.8 - 10.8 /CUMM) 16.6 H RBC (4.20 - 5.40 /CUMM) 4.49 Hgb (12.0 - 16.0 G/DL) 12.7 Hct (37 - 47 %) 38.7 MCV (81.0 - 99.0 FL) 86.1 MCH (27.0 - 31.0 PG) 28.2 RDW (11.5 - 14.5 %) 14.0 Plt Count (130 - 400 /CUMM) 440 H MPV (7.4 - 10.4 FL) 8.1 Gran % (42.2 - 75.2 %) 82.9 H Lymphocytes % (20.5 - 51.1 %) 7.0 L Monocytes % (1.7 - 9.3 %) 9.1 Eosinophils % (0 - 5 %) 0.8 Basophils % (0.0 - 2.0 %) 0.2 Absolute Granulocytes (1.4 - 6.5 /CUMM) 13.7 H Absolute Lymphocytes (1.2 - 3.4 /CUMM) 1.2 Absolute Monocytes (0.10 - 0.60 /CUMM) 1.5 H Absolute Eosinophils (0.0 - 0.7 /CUMM) 0.1 Absolute Basophils (0.0 - 0.2 /CUMM) 0 PUBS MCHC (33.0 - 37.0 G/DL) 32.8 L Pleural fluid cytology November 10 negative Last 24 Hours of Javon Results: Right pleural fluid culture lower collection November 10 positive for alpha strep and anaerobic gram negative rods Right pleural fluid upper collection November 10 negative Assessment/Plan Impression: Overall improved status post placement of a pigtail catheter with drainage of 240 mL of purulent fluid 2 days ago for an empyema of the lower chest with temperatures remaining normal on Unasyn now Day 2 for a mixed infection with anaerobes and alpha strep isolated from the pleural fluid culture. Her white blood cell count remains elevated, suggesting the possibility of undrained pleural fluid. Suggestion: 1. Repeat CT of the chest if drainage remains minimal and/or white blood cell count remains elevated 2. Further management of the catheter drainage/need for lytics based on above per Pulmonary 3. Continue Unasyn
--- NOTE | 2016-11-13 15:03 | Discharge Summary ---
Visit Information Visit Dates Admission Date: 11/08/16 Discharge Date: 11/22/2016 Hospital Course Course Attending Physician: Bridgett Mike MD Primary Care Physician: LONG HER,HANK Smith Other Care Providers: Dr. Erin collado Consulting Request: 1 Consulting Specialty: Pulmonary Disease Consulting Request: 2 Consulting Specialty: Infectious Disease Hospital Course: Ms. Haney is 51 year old female with past medical history significant for hypertension, hypothyroidism, current smoker, right ear nerve deafness, diverticulitis status post colon resection who presented to ED with chief complaint of right lateral neck and thoracic chest pain for the last 5 days. Patient stated that the pain was so severe that she presented to urgent care facility and had an x-ray with unremarkable results. She was prescribed naproxen but her symptoms did not improve. Pain was pleuritic in nature and increases with movement however she was afebrile. On admission -Vital signs temperature 97.3, pulse 92, blood pressure 161/80, respiratory rate 18 saturating 92%. Pertinent WBC 25.3, H&H 14.8/44.3, platelet 329, sodium 133, potassium 5, BUN/ creatinine 13/0.8, lactic acid 1.2, INR 1.35. -Ribs x-ray showed, Low lung volumes with basilar atelectasis with right-sided effusion. No fractures are seen. -CT chest abdomen and pelvis with contrast showed, Right-sided pleural effusion with near-complete right lower lobe collapse. Moderate right middle lobe collapse, and mild right upper lobe collapse. Effusion is indeterminate in etiology. Indeterminate solitary 6 mm pulmonary nodules, other nodules in the collapsed portions of the right lung are not excluded. Problem list #Community-acquired pneumonia #Right side pleural effusion #Lung collapse #Pulmonary nodules #Hypertension #Hypothyroidism #History of smoking Right-sided pleural effusion/ empyema Patient presented to Hospital with ongoing chest pain, shortness of breath, cough associated with sputum production. Also reported night sweats. Denied any fever or chills. She was afebrile with a WBC count elevated on admission 25 ,000 -CT showed Right-sided pleural effusion most likely from Penumonia vs malignancy. leukocytosis, possibly from pleural effusion with empyema. -USG guided thoracocentesis was done and right side pigtail catheter placement was carried out on 11/11/2016- drainage of 950ml. -Pleural fluid analysis showed WBC 33,000, LDH 03588, pH 6.85-suggestive of EXUDATIVE pleural effusion. Glucose <20 , Amylase <30, Right upper pleural fluid collection showed no growth. Right lower pleural fluid collection showed anaerobes and alpha strep. Pleural fluid cytology showed no malignant cells. -She was started on IV Unasyn 3000 Q6 -She spiked fever and underwent placement of a second pigtail catheter in the anterior collection of pus on 11/15/[address] -We continued her antibiotic and followed her White count which trended down to 12 today -CT done on 11/21 showed following 1.The empyema is not significantly changed in appearance compared to 11/18/2016. The pigtail drainage catheters remain in satisfactory position.2.Persistent compressive atelectasis and/or consolidation in the right middle and lower lobes , similar in appearance compared to 11/18/2016. 3. The mediastinal and right hilar lymphadenopathy is unchanged, likely reactive to the pulmonary/pleural disease. 4.There are a few new patchy groundglass opacities in the left upper lobe from new pneumonitis and/or atelectasis. -Her pigtail catheters were removed 11/21 by Thoracic surgery after discussion with pulm and ID as drainage from them had come down to minimal output -Her IV Unasyn was continued for 12 day and was converted to po augmentun continue for 2 to 4 weeks as per ID reccs. -Patient instructed to follow cbc on 11/25 and 12/[address] on 12/06 and follow up with pulm and mobile qa tester. Discharged with prescription Multilobar Community-acquired pneumonia/acute hypoxic respiratory insufficiency CAT scan chest suggestive of right-sided pleural effusion with the right lower lung complete collapse and mild to moderate collapse of right upper and middle lobes. - we monitored vitals every shift. -She was maintained on oxygen with saturations greater than 90. -Received IV antibiotics for right-sided pleural effusion and empyema. -received Mucinex for cough. -She received total respiratory care, nebulizer and inhaler treatments. -Urine strep and Legionella were negative. Blood cultures were negative. Urine cultures were negative. Lower respiratory cultures were growing yeast. -Dr. Gisel Cuenca and Dr. reyes were on board. She needs follow up with system support developer and pcp Right lung nodule Indeterminate solitary 6 mm pulmonary nodules, other nodules in the collapsed portions of the right lung were not excluded. Small indeterminate mediastinal nodes were seen on Ct. It will require follow up.Pt will follow up with pulmonolgist Oral thrush pt developed oral thrush likely to antibiotic use, improving today. treated with nystatin swish and spit for 1 week Diarrhea Patient had 4 episodes of loose stool on 11/20. Pt stated it is better today. Stool culture and c.diff toxin were NEGATIVE Hypertension we ontinued home medication of amlodipine 5 mg and isinopril 10 mg Hypothyroidism we continued home medication levothyroxine 50 g daily Smoker Patient has smoking history of half pack every day. Smoking cessation provided. On nicotine patch. Pt is determined to quit DVT prophylaxis alps and heparin Full code Pain pathway Tylenol Motrin and morphine Heart healthy diet Ri CT on admission 11/08 1. Right-sided pleural effusion with near-complete right lower lobe collapse. Moderate right middle lobe collapse, and mild right upper lobe collapse. Effusion is indeterminate in etiology. 2. Indeterminate solitary 6 mm pulmonary nodules, other nodules in the collapsed portions of the right lung are not excluded. 3. Small indeterminate mediastinal nodes. -CT-guided thoracocentesis and right side pigtail catheter placement- 11/11/2016 - Drains have minimal output and will be removed today - Multilobar Community-acquired pneumonia/acute hypoxic respiratory insufficiency S/p indwelling 2 pleural catheter - anterior and posterior. to be removed today * unasyn day 12 for alpha strep and anaerobes will change to PO Augmentin for 4 to 6 wks after discussing with ID * leukocytosis 13.0 * Following ID and Pulm Reccomendations * Maintain oxygen saturation greater than 90%, supplemental oxygen if necessary * Monitor closely for worsening leukocytosis, fever, shortness of breath * Robutussin with codeine and mucinex for cough * Total respiratory care, Nebulizer and inhaler treatments * Pain management * Blood culture and urine culture were sent 11/18. No growth so far.will follow up Right-sided pleural effusion/ empyema/collapse * Right-sided pleural effusion most likely from pnemonia. Malignancy was ruled out * minimal output from the pigtail catheters. * continue unasyn DAY 12 * Pulm, ID and thorcic surgery on board * tubes were not removed yesterday, planning on removing the tubes today, have talked to surgical PA awaiting cardiothoracic surgery reccs. According to pulm note, Dr marie has talked to CT surgery and they will remove the pigtail cathers today. * will monitor for 24h after pigtail catheters removal before discharging * patient will require a follow-up CT scan in 4 weeks Right lung nodule Indeterminate solitary 6 mm pulmonary nodules, other nodules in the collapsed portions of the right lung are not excluded. Small indeterminate mediastinal nodes. * need to be follow uped by Oral thrush pt developed oral thrush likely to antibiotic use, improving today * nystatin swish and spit for 1 week Diarrhea Patient had 4 episodes of loose stool yesterday. Pt states it is better today stool culture and c.diff toxin NEGATIVE Hypertension Continue home medication of amlodipine 5 mg Continue home medications lisinopril 10 mg Hypothyroidism Continue home medication levothyroxine 50 g daily Smoker Patient continues to smoke half pack every day Smoking cessation provided Nicotine patch Complications: none Allergies: Coded Allergies: No Known Allergies (11/08/16) Significant Procedures: US - US-THORACENTESIS PROCEDURE/FINDINGS: Informed consent was obtained from the patient prior to the procedure. During this process, the procedure and potential alternatives were explained, along with the intended outcome and benefits. The risks of the procedure including the possibility of an unsuccessful procedure, as well as the risk of not doing the procedure were discussed. The patient was given the opportunity to ask questions regarding the procedure and appeared competent to make decisions. A signed consent form documenting this discussion was placed in the medical record. A time out procedure was performed. The patient's CT scan was reviewed prior to performing the procedure. There was a collection at the right apex as well as the collection at the right base and both drained. The initial drainage was of the apical collection. Preliminary ultrasound confirms the presence of a apical fluid collection. With the patient in the supine position, the anterior chest was prepped and draped. All elements of maximal sterile barrier technique followed including use of cap, mask, sterile gown, sterile gloves, a sterile full body drape and hand hygiene. Also followed skin preparation with 2% chlorhexidine for cutaneous antisepsis, and sterile ultrasound preparation with sterile gel and probe cover when applicable. Using ultrasound guidance a 5-Swedish Esa tube was placed into the right apical collection and approximately 950 mL of clear yellow pleural fluid was evacuated. At the end of the procedure, the catheter was removed and a sterile dressing was applied to the site. Samples of fluid from the apical collection were sent for the requested laboratory exams including Gram stain culture and sensitivity as well as pH. Attention was then turned to the posterior lower collection and the patient was placed in the upright position. Ultrasound demonstrated a small amount of fluid at the lung base. With the patient in the upright position, the posterior chest was prepped and draped. All elements of maximal sterile barrier technique followed including use of cap, mask, sterile gown, sterile gloves, a sterile full body drape and hand hygiene. Also followed skin preparation with 2% chlorhexidine for cutaneous antisepsis, and sterile ultrasound preparation with sterile gel and probe cover when applicable. Using ultrasound guidance a 5-Swedish [place] tube was placed into the right posterior pleural collection and only 30 mL of cloudy yellow pleural fluid was evacuated. At the end of the procedure, the catheter was removed and a sterile dressing was applied to the site. Samples of fluid from the apical collection were sent for the requested laboratory exams including Gram stain culture and sensitivity as well as pH. MEDICATIONS: 20cc Lidocaine 1% was used for local anesthesia. IMPRESSION: Ultrasound-guided right-sided chest aspiration x2 with evacuation of 950 mL from the right apical collection. Only 30 mL could be evacuated from the lower collection. This lower collection fluid appeared slightly cloudy. We await laboratory analysis. The findings were discussed with Dr. Chavez immediately after the exam. SERVICE DATE: 11/11/16- EXAM TYPE: CAT - CT THORACENTESIS PROCEDURE: CT GUIDED CHEST TUBE PLACEMENT INDICATION: 51-year-old woman initially presenting with right-sided chest pain and cough with a chest CT demonstrating 2 loculated right pleural effusions. These collections were tapped under sonographic guidance on 11/10/2016. The lower pleural collection showed evidence of gram-negative rods and Gram stain. Chest tube placement requested for presumed empyema. OIL CHANGER: Ariel Tamez M.D. CONSENT: The procedure was requested by Dr. Jalen Emery. Informed consent was obtained from the patient prior to the procedure. During this process, the procedure and potential alternatives were explained along with the intended outcome and benefits. The risks of the procedure, including the possibility of an unsuccessful procedure as well as the risk of not doing the procedure were discussed. The patient was given the opportunity to ask any questions regarding the procedure and appeared competent to make medical decisions. A signed consent form which documents this discussion was placed in the medical record. The patient prior imaging studies were reviewed A timeout procedure was performed. TECHNIQUE/FINDINGS: Appropriate pre-procedure medical history and imaging studies were reviewed. The patient was placed prone in the CT gantry with the right side elevated. The patient was rescanned through the entire chest with a grid present on her posterior right back. There was a residual fluid collection in the apex of the right chest. There is a separate larger loculated pleural effusion lower wrapping around the lateral and posterior aspect of the chest with extensive consolidation of the right lung. IV conscious sedation was induced under my direction and supervision using Versed and fentanyl. The patient was continuously monitored by registered nurse. At no time was there evidence of instability. An area of the patient's lower posterolateral right chest was prepped and draped in the standard sterile fashion. 10 mL of 1% lidocaine was used to obtain local anesthesia of the skin and deeper tissues. A Franks-Plain needle was then used to access the posterior inferior pleural cavity under CT fluoroscopic guidance. A stiff Amplatz guidewire was then placed through the needle into the pleural space. The access site was then sequentially dilated using dilators to 14 Swedish. A 14 Fr. nonlocking catheter was then advanced over the wire into the lower right chest cavity posteriorly directed towards the spine. The wire was removed and the catheter was secured to the skin with a single 2-0 nylon suture and a StatLock. Approximately 240 mL purulent appearing fluid was drained by manual suction. Specimens were sent for culture and sensitivity. Repeat scans showed the presence of significant residual pleural fluid. A sterile dressing was placed over the site. The catheter was then connected to a closed chest drainage system. The patient tolerated the procedure well without evidence of complications. SEDATION TIME: 30 minutes SEDATION MEDICATIONS: 2.5 mg of Versed, 125 mcg of fentanyl Estimated radiation dose: 897.3 mGy-cm IMPRESSION: Successful right CT-guided chest tube placement as described for a presumed empyema. Significant residual loculated fluid seen on the postplacement CT. The patient may require infusion of TPA for further treatment. Pertinent Lab Results: rib xry 11/08 IMPRESSION: Low lung volumes with basilar atelectasis with right-sided effusion. No fractures are seen. abd ct 11/08 IMPRESSION: 1. Right-sided pleural effusion with near-complete right lower lobe collapse. Moderate right middle lobe collapse, and mild right upper lobe collapse. Effusion is indeterminate in etiology. 2. Indeterminate solitary 6 mm pulmonary nodules, other nodules in the collapsed portions of the right lung are not excluded. 3. Small indeterminate mediastinal nodes. 4. Hepatic steatosis. 5. Colonic diverticulosis. 6. Wandering cecum. 7. Periumbilical hernia. 8. Otherwise largely unremarkable exam. chest ultrasound 11/10 FINDINGS: There is a moderate to large right pleural effusion and compressive atelectasis of the adjacent right lung. No left pleural effusion is seen. IMPRESSION: Moderate to large right pleural effusion. repeat cxr 11/10/2016 IMPRESSION: No complication status post thoracentesis. This patient does not improve I would recommend a repeat CT scan with possible CT-guided drainage or recent decortication if this is an empyema. This result was discussed with Dr. Chavez immediately after the exam and it was ascertained that the content of the report was understood at the time of direct communication. repeat cxr 11/11/2016 FINDINGS: There is a large right apical mass and a large pleural effusion that has increased in size when compared to prior imaging and there is now near total opacification of the right hemithorax. The left lung is clear and well expanded. The cardiac silhouette is grossly enlarged. No acute osseous finding. Chronic changes related to an anterior cervical discectomy and fusion in the lower cervical spine is noted. IMPRESSION: A large right apical mass is redemonstrated and there is a worsening right pleural effusion that nearly completely opacifies the right hemithorax. Cardiomegaly appears grossly unchanged. repeat cxr- 11/11/2016 Single AP view of the chest demonstrates interval placement of a right-sided pigtail catheter which is visualized traversing the right lateral chest wall and terminating along the medial aspect of the right hemithorax. There has been slight interval decrease in size of the previously noted right-sided pleural effusion and slight interval improved aeration of the right midlung. The left lung is hypoinflated. Cardiomediastinal contours remain partially obscured. No visible pneumothoraces. No acute osseous abnormality. Mechanical hardware related to prior anterior cervical discectomy and fusion. IMPRESSION: Interval placement of a right-sided pigtail catheter which is visualized traversing the right lateral chest wall and terminating along the medial aspect of the right hemithorax. There has been slight interval decrease in size of the previously noted right-sided pleural effusion and slight interval improved aeration of the right midlung. Disposition Summary Disposition Principal Diagnosis: Community-acquired pneumonia Right side pleural effusion/empyema s/p 2 xpig tail catheter placement. Now pig- tails removed Lung collapse Pulmonary nodules Additional Diagnosis: Hypertension Hypothyroidism History of smoking Discharge Disposition: home or self care Discharge Instructions General Discharge Information Code Status: Full Code Patient's Diet: As tolerated Patient's Activity: As tolerated Follow-Up Instructions/Appts: -Please follow-up with your primary care doctor within 1 week after discharge -Please follow-up with system support developer in 1-2 weeks after discharge -Do NOT SWIM! Until you are cleared by system support developer or the wounds have closed. -con't use of IS for lung collapse. Follow pulm doctor -Pulmonary nodules-need to follow up with pulm doctor -follow cbc on 11/25 and 12/06 -get Ct on 12/06 Medications at Discharge Discharge Medications: Continue taking these medications: Naproxen Sodium (Naproxen Sodium) 550 MG TABLET 1 Tablet ORAL TWICE DAILY Qty = 60 Lisinopril (Lisinopril) 10 MG TABLET 1 Tablet ORAL DAILY Qty = 30 Comments: Last Taken: 11/22/16 Time: 0900 AM Levothyroxine Sodium (Levothyroxine Sodium) 50 MCG TABLET 1 Tablet ORAL DAILY Qty = 30 Comments: Last Taken: 11/22/16 Time: 0600 AM Amlodipine Besylate (Amlodipine Besylate) 5 MG TABLET 1 Tablet ORAL DAILY Qty = 30 Comments: Last Taken: 11/22/16 Time: 0900 AM Start taking the following new medications: Miconazole Nitrate (Miconazole Nitrate) 2 % CREAM.APPL 1 Application VAGINALLY AT BEDTIME Qty = 1 Refills = 7 Amoxicillin/Potassium Clav (Augmentin 875-125 Tablet) 875 MG-125 MG TABLET 1 Tablet ORAL TWICE DAILY Qty = 30 No Refills Nystatin (Nystatin) 100,000 UNIT/ML ORAL.SUSP 5 [place]iliters ORAL 4 TIMES A DAY Qty = 280 No Refills Comments: Last Taken: 11/22/16 Time: 1000 AM Fluconazole (Diflucan) 150 MG TABLET 1 Tablet ORAL GIVE ONCE Qty = 1 No Refills Copies To: LONG HER,HANK Smith
[2016-11-13 15:08] VITALS: BP 160/80
[2016-11-13 21:55] VITALS: BP 140/60
[2016-11-14 06:18] VITALS: BP 140/80
--- NOTE | 2016-11-14 07:32 | PN- Housestaff ---
ROXANN ZULUAGA 11/14/16 0732: Subjective Follow-up For: #Community-acquired pneumonia #Right side pleural effusion/empyema s/p pig tail catheter placement #Lung collapse #Leukocytosis #Pulmonary nodules #Hypertension #Hypothyroidism #History of smoking Complaints: pain scale (0-10) Subjective: Patient was seen and examined this morning. She is alert awake and oriented to time place and person. no Acute overnight events she is status post right-sided thoracocentesis- removal of 950 mL yellow fuid. She underwent placement of a right-sided pigtail catheter which has drained significantly. She feels markedly improved post drainage. She continues to have dry cough however denies any sputum production She is much less short of breath. She is able to ambulate without being severely dyspneic. Overall she feels she is improving, denies any other complaints today. Denies any fever, chills. Vitals stable afebrile, heart rate 80, respiratory rate 20, blood pressure 130/ 70, saturating at 94 on room air. Review of Systems Constitutional: Reports: see HPI. Objective Last 24 Hrs of Vital Signs/I&O Vital Signs Date Time Temp Pulse Resp B/P B/P Pulse O2 O2 Flow FiO2 Mean Ox Delivery Rate 11/14 0908 96 Room Air Room Air 11/14 0845 162/92 11/14 0845 162/92 11/14 0618 98.7 91 20 140/80 93 Room Air 11/14 0000 Room Air 11/13 2155 99.8 98 22 140/60 92 Room Air 11/13 2000 95 Room Air 11/13 1600 Room Air 11/13 1508 97.7 87 22 160/80 94 Intake & Output 11/14 1600 11/14 0800 11/14 0000 Intake Total 440 340 Output Total Balance 440 340 Intake, IV 200 Intake, Oral 240 340 Physical Exam General Appearance: Alert, Oriented X3, Cooperative, No Acute Distress Skin: No Rashes, No Breakdown HEENT: Atraumatic, PERRLA, EOMI, Mucous Membr. moist/pink Neck: Supple, No JVD Lymphatic: Cervical nl Cardiovascular: Normal S1, Normal S2 Lungs: Normal Air Movement Abdomen: Normal Bowel Sounds, Soft, No Tenderness Extremities: No Clubbing, No Cyanosis, No Edema Vascular: Pulses Symmetrical Current Medications: Current Medications Sig/Cherry Start time Last Medication Dose Route Stop Time Status Admin Acetaminophen 650 MG Q6P PRN 11/08 2300 AC PO Albuterol Sulfate 3 ML BID 11/09 1137 AC 11/14 INH 0908 Amlodipine Besylate 5 MG DAILY 11/09 1000 AC 11/14 PO 0845 Ampicillin Sodium/ 3,000 MG Q6 11/11 1800 AC 11/14 Sulbactam Sodium IV 1206 Sodium Chloride 100 ML Docusate Sodium 100 MG DAILY NEEDED PRN 11/10 1100 AC 11/10 PO 1424 Guaifenesin 600 MG Q12 11/13 1030 AC 11/14 PO 0845 Guaifenesin/ 10 ML Q6 11/12 1000 AC 11/14 Dextromethorphan PO 1206 Ibuprofen 600 MG Q6P PRN 11/08 2300 AC 11/14 PO 1350 Levothyroxine Sodium 0.05 MG DAILY AC 11/09 0700 AC 11/14 PO 0559 Lisinopril 10 MG DAILY 11/09 1000 AC 11/14 PO 0845 Morphine Sulfate 2 MG Q4 HRS NEEDED PRN 11/09 1815 AC 11/11 IV 0143 Polyethylene Glycol 17 GM DAILY PRN 11/10 1100 AC 11/10 PO 1424 Last 24 Hrs of Lab/Javon Results Last 24 Hrs of Labs/Mics: Laboratory Tests 11/14/16 0615: CBC w Diff NO MAN DIFF REQ, RBC 4.32, MCV 86.4, MCH 28.6, RDW 13.9, MPV 8.3, Gran % 79.0 H, Lymphocytes % 9.1 L, Monocytes % 10.9 H, Eosinophils % 0.8, Basophils % 0.2, Absolute Granulocytes 12.5 H, Absolute Lymphocytes 1.4, Absolute Monocytes 1.7 H, Absolute Eosinophils 0.1, Absolute Basophils 0, PUBS MCHC 33.1 Assessment/Plan Assessment: Ms. Haney is 51 year old female with past medical history significant for hypertension, hypothyroidism, current smoker, right ear nerve deafness, diverticulitis status post colon resection who presented to ED with chief complaint of right lateral neck and thoracic chest pain for the last 5 days. Patient stated that the pain was so severe that she presented to urgent care facility and had an x-ray with unremarkable results. She was prescribed naproxen but her symptoms did not improve. Pain is pleuritic in nature and increases with movement. On admission Vital signs temperature 97.3, pulse 92, blood pressure 161/80, respiratory rate 18 saturating 92%. Pertinent WBC 25.3, H&H 14.8/44.3, platelet 329, sodium 133, potassium 5, BUN/ creatinine 13/0.8, lactic acid 1.2, INR 1.35. Ribs x-ray showed, Low lung volumes with basilar atelectasis with right-sided effusion. No fractures are seen. CT chest abdomen and pelvis with contrast showed, Right-sided pleural effusion with near-complete right lower lobe collapse. Moderate right middle lobe collapse, and mild right upper lobe collapse. Effusion is indeterminate in etiology. Indeterminate solitary 6 mm pulmonary nodules, other nodules in the collapsed portions of the right lung are not excluded. Problem list #Community-acquired pneumonia #Right side pleural effusion #Lung collapse #Leukocytosis #Pulmonary nodules #Hypertension #Hypothyroidism #History of smoking Multilobar Community-acquired pneumonia/acute hypoxic respiratory insufficiency Patient presented to Hospital with ongoing chest pain, shortness of breath, cough associated with sputum production. Also reported night sweats. Denied any fever or chills. She is afebrile with a WBC count elevated on admission 25, 000. CAT scan chest suggestive of right-sided pleural effusion with the right lower lung complete collapse and mild to moderate collapse of right upper and middle lobes. * Admitted to general medicine floor for further management of pneumonia and pleural effusion * vitals closely every shift * Maintain oxygen saturation greater than 90% * Provide supplemental oxygen if necessary * Monitor closely for worsening leukocytosis, fever, shortness of breath * received IV ceftriaxone and IV azithromycin for 4 days for community-acquired pneumonia. * switched to unasyn day4 for better coverage of anearobes. * Right upper pleural fluid collection-no growth * Right lower pleural fluid collection-anaerobes and alpha strep * leukocytosis resolving- [id number] to [id number]. Remained afebrile. * robutussin with codeine and mucinex for cough * Total respiratory care * Nebulizer and inhaler treatments * Pain management * Legionella, strep were negative * Follow blood cultures- neg so far * Follow-up sputum cultures- yeast * Follow-up urine cultures- neg * EKG, troponins negative * Floor Covering Layer on board * ID on board Right-sided pleural effusion/ empyema Patient presented to emergency department for evaluation of right-sided chest pain. CAT scan chest showed large right pleural effusion with right lower lobe complete collapse and mild to moderate collapse of right upper lobe and middle lobe. Elevated wbc 26,000 on admission with bandemia however denies any fever. * Right-sided pleural effusion most likely from malignancy versus pneumonia. * leukocytosis, possibly from pleural effusion with empyema. * thoracocentesis therapeutic and diagnostic- Ultrasound-guided right-sided chest aspiration x2 with evacuation of 950 mL from the right apical collection. Only 30 mL could be evacuated from the lower collection. This lower collection fluid appeared slightly cloudy. Pleural fluid analysis showed WBC 33,000, LDH 79861, pH 6.85-suggestive of EXUDATIVE pleural effusion. Glucose was less than 20, amylase less than 30. * Right upper pleural fluid collection-no growth * Right lower pleural fluid collection-anaerobes and alpha strep * Pleural fluid cytology, - f/u * Repeat chest x-ray after thoracocentesis revealed a right apical mass and worsening pleural effusion right side * CT-guided thoracocentesis and right side pigtail catheter placement- 11/11/2016 - drainage of 530 mL pleural fluid so far Right lung nodule Indeterminate solitary 6 mm pulmonary nodules, other nodules in the collapsed portions of the right lung are not excluded. Small indeterminate mediastinal nodes. Single solid nodule average size 6-8 mm: * Low Risk Patient: CT at 6-12 months; then consider CT at 18-24 months. * High Risk Patient: CT at 6-12 months, then CT at 18-24 months. * Certain patients at high risk with suspicious nodule morphology, upper lobe location, or both may warrant 12-month follow-up. Hypertension Continue home medication of amlodipine 5 mg Continue home medications lisinopril 10 mg Hypothyroidism Continue home medication levothyroxine 50 g daily Smoker Patient continues to smoke half pack every day Smoking cessation provided Nicotine patch Constipation Bowel regimen was added DVT prophylaxis alps Full code Pain pathway Tylenol Motrin and morphine Heart healthy diet Problem List: 1. Pneumonia 2. Lung collapse 3. Pleural effusion Pain Ratin Pain Location: n/a Pain Goal: Remain pain free Pain Plan: tylinol motrin Tomorrow's Labs & Rationales: CbC in the setting of leukocytosis Consulting Request: Consulting Specialty: Infectious Disease DIPTI HOPKINS MD 11/14/16 6094: Attending MD Review Statement Attending Statement Attending MD Statement: examined this patient, discuss w/resident/PA/BIOLOGICAL SCIENCE TECHNICIAN, agreed w/resident/PA/BIOLOGICAL SCIENCE TECHNICIAN, reviewed EMR data (avail), discussed with nursing, discussed with case mgmt, amended to note Attending Assessment/Plan: The patient was seen and discussed with house staff. Agree with plan of care as outlined. Now off of oxygen and pleural drainage decreasing. Assuming drainage remains low will repeat CT tomorrow. Continue Unasyn.
[2016-11-14 08:01] LABS: ABSOLUTE BASOPHIL COUNT 0 /CUMM (0.0-0.2); ABSOLUTE EOSINOPHIL COUNT 0.1 /CUMM (0.0-0.7); ABSOLUTE GRANULOCYTE CT 12.5 /CUMM (1.4-6.5); ABSOLUTE LYMPH COUNT 1.4 /CUMM (1.2-3.4); ABSOLUTE MONOCYTE COUNT 1.7 /CUMM (0.10-0.60); BASOPHIL % 0.2 % (0.0-2.0); EOSINOPHIL % 0.8 % (0-5); HEMATOCRIT 37.3 % (37-47); MEAN CORPUSCULAR HGB 28.6 PG (27.0-31.0); MEAN CORPUSCULAR HGB CONC 33.1 G/DL (33.0-37.0); MEAN CORPUSCULAR VOLUME 86.4 FL (81.0-99.0); MEAN PLATELET VOLUME 8.3 FL (7.4-10.4); PLATELET COUNT 414 /CUMM (130-400); RBC DISTRIBUTION WIDTH 13.9 % (11.5-14.5); RED BLOOD CELL CT 4.32 /CUMM (4.20-5.40); WHITE BLOOD CELL COUNT 15.8 /CUMM (4.8-10.8)
--- NOTE | 2016-11-14 08:47 | PN- Pulmonary ---
Subjective HPI/Critical Care Issues: The patient is awake and alert. She reports feeling improved overall. The patient has less shortness of breath. There were no overnight events. The patient had 90 mL of fluid out from her chest tube over the past 24 hours. White count remains elevated at 15,000. Her MAXIMUM TEMPERATURE over the past 24 hours was 99.8. Objective Current Medications: Current Medications Sig/Cherry Start time Last Medication Dose Route Stop Time Status Admin Acetaminophen 650 MG Q6P PRN 11/08 2300 AC PO Albuterol Sulfate 3 ML BID 11/09 1137 AC 11/13 INH 2000 Amlodipine Besylate 5 MG DAILY 11/09 1000 AC 11/13 PO 0850 Ampicillin Sodium/ 3,000 MG Q6 11/11 1800 AC 11/14 Sulbactam Sodium IV 0600 Sodium Chloride 100 ML Docusate Sodium 100 MG DAILY NEEDED PRN 11/10 1100 AC 11/10 PO 1424 Guaifenesin 600 MG Q12 11/13 1030 AC 11/13 PO 2341 Guaifenesin/ 10 ML Q6 11/12 1000 AC 11/14 Dextromethorphan PO 0559 Ibuprofen 600 MG Q6P PRN 11/08 2300 AC 11/14 PO 0559 Levothyroxine Sodium 0.05 MG DAILY AC 11/09 0700 AC 11/14 PO 0559 Lisinopril 10 MG DAILY 11/09 1000 AC 11/13 PO 0850 Morphine Sulfate 2 MG Q4 HRS NEEDED PRN 11/09 1815 AC 11/11 IV 0143 Patient Medication 1 ED .STK-MED ONE 11/13 1337 ND Teaching ED 11/13 1338 Polyethylene Glycol 17 GM DAILY PRN 11/10 1100 AC 11/10 PO 1424 Vital Signs & I&O Last 24 Hrs of Vitals and I&O: Vital Signs Date Time Temp Pulse Resp B/P B/P Pulse O2 O2 Flow FiO2 Mean Ox Delivery Rate 11/14 0618 98.7 91 20 140/80 93 Room Air 11/14 0000 Room Air 11/13 2155 99.8 98 22 140/60 92 Room Air 11/13 2000 95 Room Air 11/13 1600 Room Air 11/13 1508 97.7 87 22 160/80 94 11/13 1119 92 Room Air Room Air 11/13 0850 158/82 11/13 0850 158/82 Intake & Output 11/14 1600 11/14 0800 06/29 0000 Intake Total 440 340 Output Total Balance 440 340 Intake, IV 200 Intake, Oral 240 340 Physical Exam General Appearance: no apparent distress, alert, awake, anxious, comfortable Head: atraumatic, normal appearance Neck: supple Respiratory: improved air entry at the right lung base, still with scattered rhonchi Cardiovascular: regular rate/rhythm Gastrointestinal: normal bowel sounds, soft, non-tender Extremities: no edema Skin: intact, normal color, warm/dry Results Last 24 Hrs of Lab Results: Laboratory Tests 11/14/16 0615: CBC w Diff NO MAN DIFF REQ, RBC 4.32, MCV 86.4, MCH 28.6, RDW 13.9, MPV 8.3, Gran % 79.0 H, Lymphocytes % 9.1 L, Monocytes % 10.9 H, Eosinophils % 0.8, Basophils % 0.2, Absolute Granulocytes 12.5 H, Absolute Lymphocytes 1.4, Absolute Monocytes 1.7 H, Absolute Eosinophils 0.1, Absolute Basophils 0, PUBS MCHC 33.1 Impression/Plan Impression/Plan Impression/Plan: 1. Right-sided empyema, pleural fluid cultures positive for alpha strep. The patient remains on IV Unasyn for anaerobic coverage. Cytology on pleural fluid is negative for malignancy. 2. Tobacco use disorder. 3. Multiple comorbidities including hypertension, hypothyroidism, obesity and right ear deafness. Recommendations: * CT chest non-contrast today to evaluate for fluid pockets - lytics? * Robitussin with codeine for the dry irritating cough as needed. * Continue nebs/TRC. * Continue IV Unasyn as recommended by ID. * Continue with pain management. * Taper oxygen down to off if able. * Continue home medications as per the primary team. * Continue all supportive care. * DVT prophylaxis at all times.
[2016-11-14 14:25] VITALS: BP 122/62
[2016-11-14 22:24] VITALS: BP 160/60
[2016-11-15 07:06] VITALS: BP 148/70
--- NOTE | 2016-11-15 08:28 | PN- Housestaff ---
ROXANN ZULUAGA 11/15/16 0828: Subjective Follow-up For: #Community-acquired pneumonia #Right side pleural effusion/empyema s/p pig tail catheter placement #Lung collapse #Leukocytosis #Pulmonary nodules #Hypertension #Hypothyroidism #History of smoking Complaints: pain scale (0-10) Subjective: Patient was seen and examined this morning. She is alert awake and oriented to time place and person. no Acute overnight events she is status post right-sided thoracocentesis- removal of 950 mL yellow fuid. She underwent placement of a right-sided pigtail catheter which has drained significantly. She feels markedly improved post drainage. She continues to have dry cough however denies any sputum production She is much less short of breath. She is able to ambulate without being severely dyspneic. Overall she feels she is improving, denies any other complaints today. Denies any fever, chills. Vitals stable afebrile, heart rate 80, respiratory rate 20, blood pressure 130/ 70, saturating at 94 on room air. Review of Systems Constitutional: Reports: see HPI. Objective Last 24 Hrs of Vital Signs/I&O Vital Signs Date Time Temp Pulse Resp B/P B/P Pulse O2 O2 Flow FiO2 Mean Ox Delivery Rate 11/15 0931 158/82 11/15 0931 158/82 11/15 0915 94 Room Air Room Air 11/15 0706 98.5 92 20 148/70 94 Room Air 11/14 2224 99.2 95 20 160/60 94 Room Air 11/14 1850 95 Room Air 11/14 1600 Room Air Room Air 11/14 1425 97.7 77 20 122/62 96 Intake & Output 11/15 1600 11/15 0800 11/15 0000 Intake Total 400 580 Output Total 815 625 Balance -415 -45 Intake, IV 200 100 Intake, Oral 200 480 Number 1 Bowel Movements Output, Chest 15 25 Tube Drainage Output, Urine 800 600 Physical Exam General Appearance: Alert, Oriented X3, Cooperative, No Acute Distress Skin: No Rashes, No Breakdown HEENT: Atraumatic, PERRLA, EOMI, Mucous Membr. moist/pink Neck: Supple, No JVD, No thryomegaly Lymphatic: Cervical nl Cardiovascular: Normal S1, Normal S2 Lungs: Normal Air Movement, SCATTERED RHONCHI Abdomen: Normal Bowel Sounds, Soft, No Tenderness Extremities: No Clubbing, No Cyanosis, No Edema Vascular: Pulses Symmetrical Current Medications: Current Medications Sig/Cherry Start time Last Medication Dose Route Stop Time Status Admin Acetaminophen 650 MG Q6P PRN 11/08 2300 AC PO Albuterol Sulfate 3 ML BID 11/09 1137 AC 11/15 INH 0914 Alteplase, 10 MG ONE TIME ONE 11/15 1315 UNVr Recombinant IV 11/15 1316 Amlodipine Besylate 5 MG DAILY 11/09 1000 AC 11/15 PO 0931 Ampicillin Sodium/ 3,000 MG Q6 11/11 1800 AC 11/15 Sulbactam Sodium IV 1206 Sodium Chloride 100 ML Docusate Sodium 100 MG DAILY NEEDED PRN 11/10 1100 AC 11/10 PO 1424 Guaifenesin 600 MG Q12 11/13 1030 AC 11/15 PO 0931 Guaifenesin/ 10 ML Q6 11/12 1000 AC 11/15 Dextromethorphan PO 1206 Ibuprofen 600 MG Q6P PRN 11/08 2300 AC 11/15 PO 0559 Levothyroxine Sodium 0.05 MG DAILY AC 11/09 0700 AC 11/15 PO 0600 Lisinopril 10 MG DAILY 11/09 1000 AC 11/15 PO 0931 Morphine Sulfate 2 MG Q4 HRS NEEDED PRN 11/09 1815 AC 11/11 IV 0143 Polyethylene Glycol 17 GM DAILY PRN 11/10 1100 AC 11/10 PO 1424 Last 24 Hrs of Lab/Javon Results Last 24 Hrs of Labs/Mics: Laboratory Tests 11/15/16 0640: CBC w Diff NO MAN DIFF REQ, RBC 4.48, MCV 86.7, MCH 28.4, RDW 14.2, MPV 8.1, Gran % 79.0 H, Lymphocytes % 11.5 L, Monocytes % 8.2, Eosinophils % 1.2, Basophils % 0.1, Absolute Granulocytes 14.5 H, Absolute Lymphocytes 2.1, Absolute Monocytes 1.5 H, Absolute Eosinophils 0.2, Absolute Basophils 0, PUBS MCHC 32.7 L Assessment/Plan Assessment: Ms. Haney is 51 year old female with past medical history significant for hypertension, hypothyroidism, current smoker, right ear nerve deafness, diverticulitis status post colon resection who presented to ED with chief complaint of right lateral neck and thoracic chest pain for 5 days. Patient stated that the pain was so severe that she presented to urgent care facility and had an x-ray with unremarkable results. She was prescribed naproxen but her symptoms did not improve. Pain is pleuritic in nature and increases with movement. On admission Vital signs temperature 97.3, pulse 92, blood pressure 161/80, respiratory rate 18 saturating 92%. Pertinent WBC 25.3, H&H 14.8/44.3, platelet 329, sodium 133, potassium 5, BUN/ creatinine 13/0.8, lactic acid 1.2, INR 1.35. Ribs x-ray showed, Low lung volumes with basilar atelectasis with right-sided effusion. No fractures are seen. CT chest abdomen and pelvis with contrast showed, Right-sided pleural effusion with near-complete right lower lobe collapse. Moderate right middle lobe collapse, and mild right upper lobe collapse. Effusion is indeterminate in etiology. Indeterminate solitary 6 mm pulmonary nodules, other nodules in the collapsed portions of the right lung are not excluded. Problem list #Community-acquired pneumonia #Right side pleural effusion #Lung collapse #Leukocytosis #Pulmonary nodules #Hypertension #Hypothyroidism #History of smoking Multilobar Community-acquired pneumonia/acute hypoxic respiratory insufficiency Patient presented to Hospital with ongoing chest pain, shortness of breath, cough associated with sputum production. Also reported night sweats. Denied any fever or chills. She is afebrile with a WBC count elevated on admission 25, 000. CAT scan chest suggestive of right-sided pleural effusion with the right lower lung complete collapse and mild to moderate collapse of right upper and middle lobes. * Admitted to general medicine floor for further management of pneumonia and pleural effusion * vitals closely every shift * Maintain oxygen saturation greater than 90% * Provide supplemental oxygen if necessary * Monitor closely for worsening leukocytosis, fever, shortness of breath * received IV ceftriaxone and IV azithromycin for 4 days for community-acquired pneumonia. * switched to unasyn day5 for better coverage of anearobes. * Right upper pleural fluid collection-no growth * Right lower pleural fluid collection-anaerobes and alpha strep * leukocytosis resolving- [id number] to [id number]. Remained afebrile. * robutussin with codeine and mucinex for cough * Total respiratory care * Nebulizer and inhaler treatments * Pain management * Legionella, strep were negative * Follow blood cultures- neg so far * Follow-up sputum cultures- yeast * Follow-up urine cultures- neg * EKG, troponins negative * Stockroom Inventory Clerk on board * ID on board Right-sided pleural effusion/ empyema Patient presented to emergency department for evaluation of right-sided chest pain. CAT scan chest showed large right pleural effusion with right lower lobe complete collapse and mild to moderate collapse of right upper lobe and middle lobe. Elevated wbc 26,000 on admission with bandemia however denies any fever. * Right-sided pleural effusion most likely from malignancy versus pneumonia. * thoracocentesis therapeutic and diagnostic- Ultrasound-guided right-sided chest aspiration x2 with evacuation of 950 mL from the right apical collection. Only 30 mL could be evacuated from the lower collection. This lower collection fluid appeared slightly cloudy. Pleural fluid analysis showed WBC 33,000, LDH 29245, pH 6.85-suggestive of EXUDATIVE pleural effusion. Glucose was less than 20, amylase less than 30. * Right upper pleural fluid collection-no growth * Right lower pleural fluid collection-anaerobes and alpha strep * Pleural fluid cytology, - f/u- NO MALIGNANCY * CT-guided thoracocentesis and right side pigtail catheter placement- 11/11/2016 * Repeat CT 11/15 - interval decrease in the loculated pleural effusion posteriorly. No significant change in small to moderate loculated anterior right pleural effusion compared to November 11. * Planning for drainage of residual collection and pigtail catheter placement in the anterior space. Right lung nodule Indeterminate solitary 6 mm pulmonary nodules, other nodules in the collapsed portions of the right lung are not excluded. Small indeterminate mediastinal nodes. Single solid nodule average size 6-8 mm: * Low Risk Patient: CT at 6-12 months; then consider CT at 18-24 months. * High Risk Patient: CT at 6-12 months, then CT at 18-24 months. * Certain patients at high risk with suspicious nodule morphology, upper lobe location, or both may warrant 12-month follow-up. Hypertension Continue home medication of amlodipine 5 mg Continue home medications lisinopril 10 mg Hypothyroidism Continue home medication levothyroxine 50 g daily Smoker Patient continues to smoke half pack every day Smoking cessation provided Nicotine patch Constipation Bowel regimen was added DVT prophylaxis alps Full code Pain pathway Tylenol Motrin and morphine Heart healthy diet Problem List: 1. Lung collapse 2. Pneumonia 3. Pleural effusion Pain Ratin Pain Location: N/A Pain Goal: Remain pain free Pain Plan: TYLINOL MOTRIN Tomorrow's Labs & Rationales: CBC IN THE SETTING OF EMPYEMA Consulting Request: Consulting Specialty: Infectious Disease DIPTI HOPKINS MD 11/15/16 1317: Attending MD Review Statement Attending Statement Attending MD Statement: examined this patient, discuss w/resident/PA/EVENTS ASSOCIATE, agreed w/resident/PA/EVENTS ASSOCIATE, discussed with family, reviewed EMR data (avail), discussed with nursing, discussed with case mgmt, amended to note Attending Assessment/Plan: The patient was seen and discussed with house staff. Decreased drainage from right chest pigtail tube noted. CT showing persistent loculated effusion. Will need lytic therapy as per Dr. Martinez and repeat CT 11/18 to determine if needs further drainage tube. Continue antibiotics.
[2016-11-15 08:29] LABS: ABSOLUTE BASOPHIL COUNT 0 /CUMM (0.0-0.2); ABSOLUTE EOSINOPHIL COUNT 0.2 /CUMM (0.0-0.7); ABSOLUTE GRANULOCYTE CT 14.5 /CUMM (1.4-6.5); ABSOLUTE LYMPH COUNT 2.1 /CUMM (1.2-3.4); ABSOLUTE MONOCYTE COUNT 1.5 /CUMM (0.10-0.60); BASOPHIL % 0.1 % (0.0-2.0); EOSINOPHIL % 1.2 % (0-5); HEMATOCRIT 38.8 % (37-47); MEAN CORPUSCULAR HGB 28.4 PG (27.0-31.0); MEAN CORPUSCULAR HGB CONC 32.7 G/DL (33.0-37.0); MEAN CORPUSCULAR VOLUME 86.7 FL (81.0-99.0); MEAN PLATELET VOLUME 8.1 FL (7.4-10.4); PLATELET COUNT 472 /CUMM (130-400); RBC DISTRIBUTION WIDTH 14.2 % (11.5-14.5); RED BLOOD CELL CT 4.48 /CUMM (4.20-5.40); WHITE BLOOD CELL COUNT 18.4 /CUMM (4.8-10.8)
--- NOTE | 2016-11-15 12:24 | CT SCAN REPORT ---
EXAMINATION: CT CHEST WITHOUT CONTRAST CLINICAL INFORMATION: 51-year-old female with shortness of breath and cough. Status post right pigtail catheter placement 11/11/2016 with purulent fluid aspirated. COMPARISON: CT chest 11/08/[address]-guided chest tube placement 11/11/2016 TECHNIQUE: Multidetector volumetric CT imaging of the chest was done. Axial MIP volume rendering provided. Sagittal and coronal reformatted images were obtained. DLP: 850.5 mGy-cm FINDINGS: LUNGS: The central airways are patent. There is near complete collapse/consolidation within the right middle lobe with air bronchograms identified. This is similar to 11/11/2016 but increased compared to November 08. There is mild to moderate collapse of the right lower lobe and mild atelectasis within the right upper lobe, unchanged. The left lung is grossly clear. MEDIASTINUM: Nonaneurysmal thoracic aorta. Normal cardiac size. Trace pericardial effusion. Similar mediastinal lymphadenopathy. PLEURA: Interval placement in a right-sided pigtail chest tube located within the lower posterior medial right pleural cavity. Interval decrease in size in the loculated posterior right pleural effusion. A small residual effusion remains. Small foci of air are seen within the pleural space posteriorly, likely related to the drainage catheter. No significant change in the small to moderate-sized loculated anterior right pleural effusion compared to November 11. The apical pleural fluid has decreased compared to the most recent prior study. AXILLA: No lymphadenopathy. UPPER ABDOMEN: Diffuse hepatic steatosis. OSSEOUS STRUCTURES: Partially imaged lower anterior cervical fusion hardware. No aggressive osseous lesions. IMPRESSION: 1. Interval placement of a right-sided pigtail chest tube within the posterior pleural space with interval decrease in the loculated pleural effusion posteriorly. No significant change in small to moderate loculated anterior right pleural effusion compared to November 11. 2. Similar near-complete collapse of the right middle lobe, moderate collapse of the right lower lobe and mild compressive atelectasis within the right upper lobe. 3. Mediastinal lymphadenopathy, likely reactive in nature. 4. Diffuse hepatic steatosis.
--- NOTE | 2016-11-15 12:52 | PN- Infect Dx ---
Subjective Subjective: Afebrile. She reports minimal pain in the right upper back and some discomfort at the site of the pigtail catheter. She notes no shortness of breath and a minimal cough with clear sputum. Objective Last 24 Hrs of Vital Signs/I&O Vital Signs Date Time Temp Pulse Resp B/P B/P Pulse O2 O2 Flow FiO2 Mean Ox Delivery Rate 11/15 0931 158/82 11/15 0931 158/82 11/15 0915 94 Room Air Room Air 11/15 0706 98.5 92 20 148/70 94 Room Air 11/14 2224 99.2 95 20 160/60 94 Room Air 11/14 1850 95 Room Air 11/14 1600 Room Air Room Air 11/14 1425 97.7 77 20 122/62 96 Intake & Output 11/15 1600 11/15 0800 11/15 0000 Intake Total 400 580 Output Total 815 625 Balance -415 -45 Intake, IV 200 100 Intake, Oral 200 480 Number 1 Bowel Movements Output, Chest 15 25 Tube Drainage Output, Urine 800 600 Physical Exam Other Physical Findings: She appears comfortable in no acute distress Chest pigtail catheter in the right chest with 65 mL output yesterday and 15 mL overnight Lungs decreased breath sounds at the right base Results Last 24 Hours of Lab Results: Laboratory Tests 11/15 0640 Hematology CBC w Diff NO MAN DIFF REQ WBC (4.8 - 10.8 /CUMM) 18.4 H RBC (4.20 - 5.40 /CUMM) 4.48 Hgb (12.0 - 16.0 G/DL) 12.7 Hct (37 - 47 %) 38.8 MCV (81.0 - 99.0 FL) 86.7 MCH (27.0 - 31.0 PG) 28.4 RDW (11.5 - 14.5 %) 14.2 Plt Count (130 - 400 /CUMM) 472 H MPV (7.4 - 10.4 FL) 8.1 Gran % (42.2 - 75.2 %) 79.0 H Lymphocytes % (20.5 - 51.1 %) 11.5 L Monocytes % (1.7 - 9.3 %) 8.2 Eosinophils % (0 - 5 %) 1.2 Basophils % (0.0 - 2.0 %) 0.1 Absolute Granulocytes (1.4 - 6.5 /CUMM) 14.5 H Absolute Lymphocytes (1.2 - 3.4 /CUMM) 2.1 Absolute Monocytes (0.10 - 0.60 /CUMM) 1.5 H Absolute Eosinophils (0.0 - 0.7 /CUMM) 0.2 Absolute Basophils (0.0 - 0.2 /CUMM) 0 PUBS MCHC (33.0 - 37.0 G/DL) 32.7 L Last 24 Hours of Javon Results: No recent cultures Recent Imaging Studies: CT of the chest November 15 reveals near complete collapse/consolidation within the right middle lobe with air bronchograms; right sided pigtail catheter in place with interval decrease in size in the loculated posterior right pleural effusion , with a small residual effusion noted; no change in the small to moderate sized loculated anterior right pleural effusion from the previous study Assessment/Plan Impression: Persistent leukocytosis despite placement 4 days ago of a pigtail catheter in the right posterior lateral fluid collection, which proved to be an empyema, with the culture of the initial thoracentesis positive for anaerobes and alpha strep. She does remain afebrile on Unasyn now Day 4 but, given the CT scan of the chest from today revealing a persistent small to moderate loculated anterior right pleural effusion, feel that further drainage will be necessary. Suggestion: 1. Would pursue drainage of the residual collection seen on CT 2. Continue Unasyn
--- NOTE | 2016-11-15 12:54 | PN- Pulmonary ---
Subjective HPI/Critical Care Issues: pt seen and examined under 100 cc overnight from pigtail CT chest today shows residual pleural fluid Objective Current Medications: Current Medications Sig/Cherry Start time Last Medication Dose Route Stop Time Status Admin Acetaminophen 650 MG Q6P PRN 11/08 2300 AC PO Albuterol Sulfate 3 ML BID 11/09 1137 AC 11/15 INH 0914 Amlodipine Besylate 5 MG DAILY 11/09 1000 AC 11/15 PO 0931 Ampicillin Sodium/ 3,000 MG Q6 11/11 1800 AC 11/15 Sulbactam Sodium IV 1206 Sodium Chloride 100 ML Docusate Sodium 100 MG DAILY NEEDED PRN 11/10 1100 AC 11/10 PO 1424 Guaifenesin 600 MG Q12 11/13 1030 AC 11/15 PO 0931 Guaifenesin/ 10 ML Q6 11/12 1000 AC 11/15 Dextromethorphan PO 1206 Ibuprofen 600 MG Q6P PRN 11/08 2300 AC 11/15 PO 0559 Levothyroxine Sodium 0.05 MG DAILY AC 11/09 0700 AC 11/15 PO 0600 Lisinopril 10 MG DAILY 11/09 1000 AC 11/15 PO 0931 Morphine Sulfate 2 MG Q4 HRS NEEDED PRN 11/09 1815 AC 11/11 IV 0143 Polyethylene Glycol 17 GM DAILY PRN 11/10 1100 AC 11/10 PO 1424 Vital Signs & I&O Last 24 Hrs of Vitals and I&O: Vital Signs Date Time Temp Pulse Resp B/P B/P Pulse O2 O2 Flow FiO2 Mean Ox Delivery Rate 11/15 0931 158/82 11/15 0931 158/82 11/15 0915 94 Room Air Room Air 11/15 0706 98.5 92 20 148/70 94 Room Air 11/14 2224 99.2 95 20 160/60 94 Room Air 11/14 1850 95 Room Air 11/14 1600 Room Air Room Air 11/14 1425 97.7 77 20 122/62 96 Intake & Output 11/15 1600 11/15 0800 11/15 0000 Intake Total 400 580 Output Total 815 625 Balance -415 -45 Intake, IV 200 100 Intake, Oral 200 480 Number 1 Bowel Movements Output, Chest 15 25 Tube Drainage Output, Urine 800 600 Exam Other Physical Findings: gen awake and alert heent ncat cvs s1, s2 lungs rare rhonchi, reduced bs at bases abd soft, bs+ ext without edema Results Last 24 Hrs of Lab Results: Laboratory Tests 11/15/16 0640: CBC w Diff NO MAN DIFF REQ, RBC 4.48, MCV 86.7, MCH 28.4, RDW 14.2, MPV 8.1, Gran % 79.0 H, Lymphocytes % 11.5 L, Monocytes % 8.2, Eosinophils % 1.2, Basophils % 0.1, Absolute Granulocytes 14.5 H, Absolute Lymphocytes 2.1, Absolute Monocytes 1.5 H, Absolute Eosinophils 0.2, Absolute Basophils 0, PUBS MCHC 32.7 L Impression/Plan Impression/Plan Impression/Plan: Impression 51 year old woman * empyema, worsened leukocytosis * CT chest with residual pleural fluid Plan -will perform lytic therapy via indwelling pleural catheter -repeat CT chest without contrast early Friday morning will assess fluid status, specifically the anterior effusion, if persists, may require a secondary drainage anteriorly by IR if needed -cont ID follow up/abx DVT prophylaxis at all times
[2016-11-15 14:41] VITALS: BP 172/78
[2016-11-15 16:00] VITALS: BP 170/80
[2016-11-15 18:03] VITALS: BP 170/80
--- NOTE | 2016-11-15 18:17 | CT SCAN REPORT ---
PROCEDURE: Ultrasound and CT-guided placement of right-sided chest tube INDICATION: Persistent loculated fluid collection within the anterolateral chest concerning for empyema. SPECIMEN: Culture ACCESS: 5 Fr. One-Step Needle REQUESTING PRACTITIONER: CHLOE ZULUAGA MD Interventional Radiologist: Arpan Worley M.D. CONSENT: Informed consent was obtained from the patient prior to the procedure. During this process, the procedure and potential alternatives were explained along with the intended outcome and benefits. The risks of the procedure, including the possibility of an unsuccessful procedure as well as the risk of not doing the procedure were discussed. The patient was given the opportunity to ask any questions regarding the procedure and appeared competent to make medical decisions. A signed consent form which documents this discussion was placed in the medical record. A timeout procedure was performed. MEDICATIONS: - 20 ml 1% lidocaine. -150 mcg fentanyl was administered in divided doses by a dedicated radiology nurse under my direct supervision. DLP: 540 mGy-cm TECHNIQUE/FINDINGS: Appropriate pre-procedure medical history and imaging studies were reviewed. The patient was originally placed in the left side down decubitus on the ultrasound table. Ultrasound imaging was obtained which demonstrated a complex fluid collection within the anterolateral right chest. There is difficulty visualizing the fluid under ultrasound given rib shadowing and air from overlying consolidated lung. A 5 Surinamese Yueh catheter was directed into the fluid under direct ultrasound guidance and approximately 2 mL of cloudy fluid was aspirated. A wire could not be properly coiled within the fluid collection. For this reason, the Yueh catheter was removed and the patient was transferred to the CT department. The patient was placed supine on the CT scanner and images of the right chest were obtained which localized a complex appearing fluid collection within the anterolateral pleural space. Images were permanently saved to the record. An area of the patient's right chest was prepped and draped in the standard sterile fashion. 10 mL of 1% lidocaine was used to obtain local anesthesia of the skin and deeper tissues. A standard small bore needle was introduced to fluid and demonstrated a safe access route. A 6 Surinamese one step needle was then used to access the pleural cavity. 5 mL of thin, mildly cloudy yellow fluid was aspirated. A guidewire was then placed through the introducer into the chest. The access site was then sequentially dilated using dilators sized 8, 10 and 12 Surinamese dilators. A 12 Fr. nonlocking catheter was then advanced over the wire into the chest cavity. The wire was removed and the catheter was secured to the skin with a single suture and a sterile dressing was placed over the site. The catheter was then connected to a closed chest drainage system. The patient tolerated the procedure well without evidence of complications. IMPRESSION: Successful right ultrasound and CT-guided chest tube placement as described. RECOMMENDATIONS: Chest tube connected to closed chest drainage system via gravity. Tube will be managed by thoracic team.
--- NOTE | 2016-11-15 18:20 | NUR ---
PT ARRIVED TO FLOOR AT THIS TIME FROM IR FOR 2ND PIGTAIL CHEST TUBE PLACEMENT. NEW SITE IS LOCATED TO ANTERIOR CHEST WALL UNDER RIGHT BREAST. CD+I. NOT CONNECTED TO SUCTION AT THIS TIME CALL PLACED TO [facility] FOR ORDERS FOR SUCTION. TO REMAIN OFF SUCTION UNTIL ORDERS OBTAINED. 1ST CHEST TUBE SITE TO RIGHT BACK CD+I AND CONNECTED TO 25 CM SUCTION. LUNG SOUNDS DIMINISHED THROUGHOUT. ORAL TEMP 100.7 BP 170/80 HR 106 RR 20-22 92% ON RA. DENIES SOB. CALL PLACED TO [employer] TO MAKE AWARE OF ABOVE VS. MEDICATED WITH MOTRIN.
--- NOTE | 2016-11-15 19:04 | NUR ---
CALL PLACED TO [employer] [employer] AT THIS TIME FOR ORDERS FOR SUCTION FOR CHEST TUBE
--- NOTE | 2016-11-15 19:16 | NUR ---
PER LATISHA, SURGICAL TEAM WILL GIVE ORDERS FOR CHEST TUBE SUCTION AND MANAGE TUBE . CALL TO SURGICAL AKIKO LAKHANI BUT NO SURGICAL CONSULT HAS BEEN DONE. [facility] CALLING MEDICAL TEAM AT THIS TIME AWAITING ORDERS
--- NOTE | 2016-11-15 20:23 | NUR ---
CALL PLACED TO DR EPPS AT THIS TIME CALLS TO [facility] UNSUCCESSFUL AWAITING CALL BACK
--- NOTE | 2016-11-15 21:24 | NUR ---
SPOKE TO MOD AT THIS TIME, CHEST TUBE THAT WAS PLACED TODAY IS TO REMAIN TO GRAVITY.
[2016-11-15 22:39] VITALS: BP 130/50
[2016-11-16 06:55] VITALS: BP 138/70
--- NOTE | 2016-11-16 08:31 | PN- Housestaff ---
See Addendum Subjective Follow-up For: Community-acquired pneumonia Right side pleural effusion/empyema s/p pig tail catheter placement Lung collapse Leukocytosis Pulmonary nodules Hypertension Hypothyroidism History of smoking Complaints: no complaints Subjective: I saw and examined the patient, she is doing well, sitting comfortably. Denies any chestpain or palpitations. Afebrile and doenot complain of pain. She has 2 right-sided pigtail catheters she continues to have dry cough however denies any sputum production She is much less short of breath. She is able to ambulate without being severely dyspneic. Overall she feels she is improving, denies any other complaints today. Review of Systems Constitutional: Denies: no symptoms. Cardiovascular: Denies: chest pain. Respiratory: Denies: see HPI, hemoptysis, short of breath, stridor, wheezing. Gastrointestinal: Denies: no symptoms, diarrhea. Genitourinary: Denies: no symptoms. Musculoskeletal: Denies: no symptoms. Skin: Denies: no symptoms. Objective Last 24 Hrs of Vital Signs/I&O Vital Signs Date Time Temp Pulse Resp B/P B/P Pulse O2 O2 Flow FiO2 Mean Ox Delivery Rate 11/16 0921 140/84 11/16 0920 140/84 11/16 0840 98 Room Air 11/16 0655 98.5 86 18 138/70 94 Room Air 11/16 0000 93 Room Air 11/15 2239 98.6 88 20 130/50 93 Room Air 11/15 2139 99.1 11/15 2046 97 Room Air Room Air 11/15 1805 100.7 11/15 1803 100.7 106 22 170/80 92 Room Air 11/15 1600 100.7 106 22 170/80 92 11/15 1441 99.4 100 20 172/78 94 Intake & Output 11/16 1600 11/16 0800 07 0000 Intake Total 120 150 Output Total 340 75 Balance -220 75 Intake, IV 150 Intake, Oral 120 Number 1 Bowel Movements Output, Chest 40 75 Tube Drainage Output, Urine 300 Physical Exam General Appearance: Alert, Oriented X3, Cooperative, No Acute Distress Skin: No Rashes Neck: Supple Cardiovascular: Normal S1, Normal S2 Lungs: scattered rocnchi Abdomen: Normal Bowel Sounds Neurological: Normal Speech Current Medications: Current Medications Sig/Cherry Start time Last Medication Dose Route Stop Time Status Admin Acetaminophen 650 MG Q6P PRN 11/08 2300 AC PO Albuterol Sulfate 3 ML BID 11/09 1137 AC 11/16 INH 0818 Amlodipine Besylate 5 MG DAILY 11/09 1000 AC 11/16 PO 0920 Ampicillin Sodium/ 3,000 MG Q6 11/11 1800 AC 11/16 Sulbactam Sodium IV 1219 Sodium Chloride 100 ML Docusate Sodium 100 MG DAILY NEEDED PRN 11/10 1100 AC 11/10 PO 1424 Fentanyl Citrate 0 .STK-MED ONE 11/15 1711 DC .ROUTE Fentanyl Citrate 0 .STK-MED ONE 11/15 1548 DC .ROUTE Guaifenesin 600 MG Q12 11/13 1030 AC 11/16 PO 0920 Guaifenesin/ 10 ML Q6 11/12 1000 AC 11/16 Dextromethorphan PO 1219 Ibuprofen 600 MG Q6P PRN 11/08 2300 AC 11/16 PO 1219 Levothyroxine Sodium 0.05 MG DAILY AC 11/09 0700 AC 11/16 PO 0555 Lidocaine 0 .STK-MED ONE 11/15 1628 DC .ROUTE Lidocaine 0 .STK-MED ONE 11/15 1445 DC .ROUTE Lisinopril 10 MG DAILY 11/09 1000 AC 11/16 PO 0921 Morphine Sulfate 2 MG Q4 HRS NEEDED PRN 11/09 1815 AC 11/11 IV 0143 Patient Medication 1 ED .STK-MED ONE 11/15 1413 DC Teaching ED 11/15 1414 Polyethylene Glycol 17 GM DAILY PRN 11/10 1100 AC 11/10 PO 1424 Last 24 Hrs of Lab/Javon Results Last 24 Hrs of Labs/Mics: Laboratory Tests 11/16/16 0740: CBC w Diff NO MAN DIFF REQ, RBC 4.38, MCV 86.2, MCH 28.3, RDW 13.9, MPV 7.7, Gran % 83.3 H, Lymphocytes % 8.0 L, Monocytes % 6.1, Eosinophils % 2.3, Basophils % 0.3, Absolute Granulocytes 13.5 H, Absolute Lymphocytes 1.3, Absolute Monocytes 1.0 H, Absolute Eosinophils 0.4, Absolute Basophils 0, PUBS MCHC 32.8 L Microbiology 11/15 1515 BODY FLUID: Body Fluid Culture - RES 11/15 151 BODY FLUID: Gram Stain - RES Lines/Diet/Fluids Catheters/Tubes: 2 pigtails Assessment/Plan Assessment: Ms. Haney is 51 year old female presented to ED with chief complaint of right lateral neck and thoracic chest pain for 5 days. past medical history significant for hypertension, hypothyroidism, current smoker, right ear nerve deafness, diverticulitis status post colon resection. On admission Vital signs temperature 97.3, pulse 92, blood pressure 161/80, respiratory rate 18 saturating 92%. Pertinent WBC 25.3, H&H 14.8/44.3, platelet 329, sodium 133, potassium 5, BUN/ creatinine 13/0.8, lactic acid 1.2, INR 1.35. Ribs x-ray showed, Low lung volumes with basilar atelectasis with right-sided effusion. No fractures are seen. CT chest abdomen and pelvis with contrast showed, Right-sided pleural effusion with near-complete right lower lobe collapse. Moderate right middle lobe collapse, and mild right upper lobe collapse. Effusion is indeterminate in etiology. Indeterminate solitary 6 mm pulmonary nodules, other nodules in the collapsed portions of the right lung are not excluded. Multilobar Community-acquired pneumonia/acute hypoxic respiratory insufficiency Patient presented to Hospital with ongoing chest pain, shortness of breath, cough associated with sputum production. Also reported night sweats. Denied any fever or chills. She is afebrile with a WBC count elevated on admission 25, 000. CAT scan chest suggestive of right-sided pleural effusion with the right lower lung complete collapse and mild to moderate collapse of right upper and middle lobes.s/p anterior indwelling pleural catheter - anterior * monitor vitals * Maintain oxygen saturation greater than 90% * Provide supplemental oxygen if necessary * Monitor closely for worsening leukocytosis, fever, shortness of breath * unasyn day7 for better coverage of anearobes. * Right upper pleural fluid collection-no growth * Right lower pleural fluid collection-anaerobes and alpha strep * leukocytosis downtrending 16.2 from 18.4 * robutussin with codeine and mucinex for cough * Total respiratory care * Nebulizer and inhaler treatments * Pain management Right-sided pleural effusion/ empyema * Right-sided pleural effusion most likely from pnemonia vs malignancy * thoracocentesis therapeutic and diagnostic * Right lower pleural fluid collection-anaerobes and alpha strep * Pleural fluid cytology, - f/u- NO MALIGNANCY * CT-guided thoracocentesis and right side pigtail catheter placement- 11/11/2016 * status post placement of a second pigtail catheter in the anterior collection 11/15/2016 following CTscan * Repeat CT scan of the chest if white blood cell count remains elevated and/or when pleural fluid drainage diminishes * monitor output from the pigtail catheter * continue unasyn Right lung nodule Indeterminate solitary 6 mm pulmonary nodules, other nodules in the collapsed portions of the right lung are not excluded. Small indeterminate mediastinal nodes. Single solid nodule average size 6-8 mm: * Low Risk Patient: CT at 6-12 months; then consider CT at 18-24 months. * High Risk Patient: CT at 6-12 months, then CT at 18-24 months. * Certain patients at high risk with suspicious nodule morphology, upper lobelocation, or both may warrant 12-month follow-up. Hypertension Continue home medication of amlodipine 5 mg Continue home medications lisinopril 10 mg Hypothyroidism Continue home medication levothyroxine 50 g daily Smoker Patient continues to smoke half pack every day Smoking cessation provided Nicotine patch Constipation Bowel regimen was added had bowel movement today DVT prophylaxis alps Full code Pain pathway Tylenol Motrin and morphine Heart healthy diet Problem List: 1. Pleural effusion 2. Pneumonia Pain Ratin Pain Location: right sided mid to lower back pain Pain Goal: Pain 4 or less Pain Plan: tylenol motrin and morphive 2mg iv Tomorrow's Labs & Rationales: cbc Consulting Request: Consulting Specialty: Infectious Disease Consulting Request: Consulting Specialty: Infectious Disease
[2016-11-16 08:35] LABS: ABSOLUTE BASOPHIL COUNT 0 /CUMM (0.0-0.2); ABSOLUTE EOSINOPHIL COUNT 0.4 /CUMM (0.0-0.7); ABSOLUTE GRANULOCYTE CT 13.5 /CUMM (1.4-6.5); ABSOLUTE LYMPH COUNT 1.3 /CUMM (1.2-3.4); BASOPHIL % 0.3 % (0.0-2.0); EOSINOPHIL % 2.3 % (0-5); GRANULOCYTE % 83.3 % (42.2-75.2); HEMATOCRIT 37.7 % (37-47); MEAN CORPUSCULAR HGB 28.3 PG (27.0-31.0); MEAN CORPUSCULAR HGB CONC 32.8 G/DL (33.0-37.0); MEAN CORPUSCULAR VOLUME 86.2 FL (81.0-99.0); MEAN PLATELET VOLUME 7.7 FL (7.4-10.4); PLATELET COUNT 473 /CUMM (130-400); RBC DISTRIBUTION WIDTH 13.9 % (11.5-14.5); RED BLOOD CELL CT 4.38 /CUMM (4.20-5.40)
[2016-11-16 10:06] LABS: WHITE BLOOD CELL COUNT 16.2 /CUMM (4.8-10.8)
--- NOTE | 2016-11-16 11:03 | PN- Infect Dx ---
Subjective Subjective: MAXIMUM TEMPERATURE 100.7 without complaints Objective Last 24 Hrs of Vital Signs/I&O Vital Signs Date Time Temp Pulse Resp B/P B/P Pulse O2 O2 Flow FiO2 Mean Ox Delivery Rate 11/16 0921 140/84 11/16 0920 140/84 11/16 0840 98 Room Air 11/16 0655 98.5 86 18 138/70 94 Room Air 11/16 0000 93 Room Air 11/15 2239 98.6 88 20 130/50 93 Room Air 11/15 2139 99.1 11/15 2046 97 Room Air Room Air 11/15 1805 100.7 11/15 1803 100.7 106 22 170/80 92 Room Air 11/15 1600 100.7 106 22 170/80 92 11/15 1441 99.4 100 20 172/78 94 Intake & Output 11/16 1600 11/16 0800 11/16 0000 Intake Total 120 150 Output Total 340 75 Balance -220 75 Intake, IV 150 Intake, Oral 120 Number 1 Bowel Movements Output, Chest 40 75 Tube Drainage Output, Urine 300 Physical Exam Other Physical Findings: She appears comfortable in no acute distress Lungs are clear Chest posterior drain with 30 mL output yesterday and none overnight and anterior drain with 75 mL output yesterday and 40 mL overnight Results Last 24 Hours of Lab Results: Laboratory Tests 11/17 739 Hematology CBC w Diff NO MAN DIFF REQ WBC (4.8 - 10.8 /CUMM) 16.2 H RBC (4.20 - 5.40 /CUMM) 4.38 Hgb (12.0 - 16.0 G/DL) 12.4 Hct (37 - 47 %) 37.7 MCV (81.0 - 99.0 FL) 86.2 MCH (27.0 - 31.0 PG) 28.3 RDW (11.5 - 14.5 %) 13.9 Plt Count (130 - 400 /CUMM) 473 H MPV (7.4 - 10.4 FL) 7.7 Gran % (42.2 - 75.2 %) 83.3 H Lymphocytes % (20.5 - 51.1 %) 8.0 L Monocytes % (1.7 - 9.3 %) 6.1 Eosinophils % (0 - 5 %) 2.3 Basophils % (0.0 - 2.0 %) 0.3 Absolute Granulocytes (1.4 - 6.5 /CUMM) 13.5 H Absolute Lymphocytes (1.2 - 3.4 /CUMM) 1.3 Absolute Monocytes (0.10 - 0.60 /CUMM) 1.0 H Absolute Eosinophils (0.0 - 0.7 /CUMM) 0.4 Absolute Basophils (0.0 - 0.2 /CUMM) 0 PUBS MCHC (33.0 - 37.0 G/DL) 32.8 L Last 24 Hours of Javon Results: Right pleural fluid culture November 15 negative Assessment/Plan Impression: Stable status post placement of a second pigtail catheter in the anterior collection yesterday, with only 2 mL obtained under ultrasound and [address] scan, with low-grade fevers after the procedure. Her white blood cell count has decreased slightly and, if it remains elevated and drainage remains minimal, she will need a repeat CT scan to reassess the pleural effusions. She remains on Unasyn Day 5 of treatment for alpha strep and anaerobes isolated from the initial thoracentesis. Suggestion: 1. Continue to monitor output from the pigtail catheters 2. Continue to monitor temperatures and white blood cell count 3. Repeat CT scan of the chest if white blood cell count remains elevated and/ or when pleural fluid drainage diminishes 4. Continue Unasyn
--- NOTE | 2016-11-16 14:04 | PN- Pulmonary ---
Subjective HPI/Critical Care Issues: pt seen and examined s/p anterior indwelling pleural catheter - ~150 cc/hr so far in the [facility] feels well wbc 16.2, afebrile Objective Current Medications: Current Medications Sig/Cherry Start time Last Medication Dose Route Stop Time Status Admin Acetaminophen 650 MG Q6P PRN 11/08 2300 AC PO Albuterol Sulfate 3 ML BID 11/09 1137 AC 11/16 INH 0818 Amlodipine Besylate 5 MG DAILY 11/09 1000 AC 11/16 PO 0920 Ampicillin Sodium/ 3,000 MG Q6 11/11 1800 AC 11/16 Sulbactam Sodium IV 1219 Sodium Chloride 100 ML Docusate Sodium 100 MG DAILY NEEDED PRN 11/10 1100 AC 11/10 PO 1424 Fentanyl Citrate 0 .STK-MED ONE 11/15 1711 DC .ROUTE Fentanyl Citrate 0 .STK-MED ONE 11/15 1548 DC .ROUTE Guaifenesin 600 MG Q12 11/13 1030 AC 11/16 PO 0920 Guaifenesin/ 10 ML Q6 11/12 1000 AC 11/16 Dextromethorphan PO 1219 Ibuprofen 600 MG Q6P PRN 11/08 2300 AC 11/16 PO 1219 Levothyroxine Sodium 0.05 MG DAILY AC 11/09 0700 AC 11/16 PO 0555 Lidocaine 0 .STK-MED ONE 11/15 1628 DC .ROUTE Lidocaine 0 .STK-MED ONE 11/15 1445 DC .ROUTE Lisinopril 10 MG DAILY 11/09 1000 AC 11/16 PO 0921 Morphine Sulfate 2 MG Q4 HRS NEEDED PRN 11/09 1815 AC 11/11 IV 0143 Patient Medication 1 ED .STK-MED ONE 11/15 1413 DC Teaching ED 11/15 1414 Polyethylene Glycol 17 GM DAILY PRN 11/10 1100 AC 11/10 PO 1424 Vital Signs & I&O Last 24 Hrs of Vitals and I&O: Vital Signs Date Time Temp Pulse Resp B/P B/P Pulse O2 O2 Flow FiO2 Mean Ox Delivery Rate 11/16 920 140/84 11/16 09 140/84 11/16 0840 98 Room Air 11/16 0655 98.5 86 18 138/70 94 Room Air 11/16 0000 93 Room Air 11/15 2238 98.6 88 20 130/50 93 Room Air 11/15 2138 99.1 11/15 2046 97 Room Air Room Air 11/15 1805 100.7 11/15 1803 100.7 106 22 170/80 92 Room Air 11/15 1600 100.7 106 22 170/80 92 11/15 1441 99.4 100 20 172/78 94 Intake & Output 11/16 1600 11/16 0800 11/16 0000 Intake Total 120 150 Output Total 340 75 Balance -220 75 Intake, IV 150 Intake, Oral 120 Number 1 Bowel Movements Output, Chest 40 75 Tube Drainage Output, Urine 300 Exam Other Physical Findings: gen awake and alert heent ncat cvs s1, s2 lungs rare rhonchi, reduced bs at bases abd soft, bs+ ext without edema Results Last 24 Hrs of Lab Results: Laboratory Tests 11/16/16 0740: CBC w Diff NO MAN DIFF REQ, RBC 4.38, MCV 86.2, MCH 28.3, RDW 13.9, MPV 7.7, Gran % 83.3 H, Lymphocytes % 8.0 L, Monocytes % 6.1, Eosinophils % 2.3, Basophils % 0.3, Absolute Granulocytes 13.5 H, Absolute Lymphocytes 1.3, Absolute Monocytes 1.0 H, Absolute Eosinophils 0.4, Absolute Basophils 0, PUBS MCHC 32.8 L Impression/Plan Impression/Plan Impression/Plan: Impression 51 year old woman * empyema * CT chest with residual pleural fluid Plan -s/p anterior indwelling pleural catheter - anterior -monitor both pigtail output - record it clearly -once fluid diminishes will need re-imaging (24-48 hrs) will follow with you -cont ID follow up/abx DVT prophylaxis at all times
[2016-11-16 14:21] VITALS: BP 164/66
[2016-11-16 21:58] VITALS: BP 152/62
[2016-11-17 06:30] VITALS: BP 142/80
--- NOTE | 2016-11-17 07:43 | PN- Housestaff ---
Subjective Follow-up For: Community-acquired pneumonia Right side pleural effusion/empyema s/p post pig tail catheter placement 2016 and ant pig tail catherter placement 11/15/2016 Lung collapse Leukocytosis Pulmonary nodules Hypertension Hypothyroidism History of smoking Complaints: no complaints Subjective: I saw and examined the patient in the morning. She was sitting comfortably in her bed. No acute overnight events. She does not complain of shortness of breath, palpitations, chest pain. She does not complain of pain. She is afebrile. She has 2 pigtail catheters. She has some dry cough but no sputum production. Overall she is improving and does not have any complaint. Review of Systems Constitutional: Reports: no symptoms. Denies: chills, diaphoresis. EENTM: Reports: no symptoms. Cardiovascular: Denies: chest pain, palpitations. Respiratory: Denies: short of breath, sputum production, wheezing. Gastrointestinal: Denies: abdominal pain, constipation, diarrhea, nausea, vomiting. Genitourinary: Reports: no symptoms. Musculoskeletal: Reports: no symptoms. Skin: Reports: no symptoms. Objective Last 24 Hrs of Vital Signs/I&O Vital Signs Date Time Temp Pulse Resp B/P B/P Pulse O2 O2 Flow FiO2 Mean Ox Delivery Rate 11/17 1025 80 144/78 11/17 1025 144/78 11/17 1012 95 Room Air / 0800 96 Room Air 11/17 0630 99.1 83 20 142/80 93 Room Air 11/17 0000 Room Air 11/16 2158 99.0 95 20 152/62 94 Room Air 11/16 1855 94 Room Air 11/16 1421 99.0 95 20 164/66 94 Intake & Output 11/17 1600 /02 0800 07/02 0000 Intake Total 540 580 Output Total 615 400 Balance -75 180 Intake, IV 240 100 Intake, Oral 300 480 Output, Chest 15 Tube Drainage Output, Urine 600 400 Physical Exam General Appearance: Alert, Oriented X3, Cooperative, No Acute Distress Skin: No Rashes, No Breakdown Skin Temp/Moisture Exam: Warm/Dry HEENT: Atraumatic, Mucous Membr. moist/pink Neck: Supple Cardiovascular: Normal S1, Normal S2 Lungs: breath sounds diminished at base, few ronchi Abdomen: Normal Bowel Sounds, Soft, No Tenderness Neurological: Normal Speech Current Medications: Current Medications Sig/Cherry Start time Last Medication Dose Route Stop Time Status Admin Acetaminophen 650 MG Q6P PRN 11/08 2300 AC PO Albuterol Sulfate 3 ML BID 11/09 1137 AC 11/17 INH 1001 Amlodipine Besylate 5 MG DAILY 11/09 1000 AC 11/17 PO 1025 Ampicillin Sodium/ 3,000 MG Q6 11/11 1800 AC 11/17 Sulbactam Sodium IV 1216 Sodium Chloride 100 ML Docusate Sodium 100 MG DAILY NEEDED PRN 11/10 1100 AC 11/10 PO 1424 Guaifenesin 600 MG Q12 11/13 1030 AC 11/17 PO 1021 Guaifenesin/ 10 ML Q6 11/12 1000 AC 11/17 Dextromethorphan PO 1216 Ibuprofen 600 MG Q6P PRN 11/08 2300 AC 11/17 PO 0002 Levothyroxine Sodium 0.05 MG DAILY AC 11/09 0700 AC 11/17 PO 0553 Lisinopril 20 MG DAILY 11/18 1000 AC PO Lisinopril 10 MG DAILY 11/09 1000 DC 11/17 PO 1025 Morphine Sulfate 2 MG Q4 HRS NEEDED PRN 11/09 1815 AC 11/11 IV 0143 Polyethylene Glycol 17 GM DAILY PRN 11/10 1100 AC 11/10 PO 1424 Last 24 Hrs of Lab/Javon Results Last 24 Hrs of Labs/Mics: Laboratory Tests 11/17/16 0805: Anion Gap 10, Estimated GFR > 60, BUN/Creatinine Ratio 12.0, CBC w Diff NO MAN DIFF REQ, RBC 4.38, MCV 86.3, MCH 28.5, RDW 13.9, MPV 7.8, Gran % 84.7 H, Lymphocytes % 9.3 L, Monocytes % 3.7, Eosinophils % 2.1, Basophils % 0.2, Absolute Granulocytes 12.8 H, Absolute Lymphocytes 1.4, Absolute Monocytes 0.6, Absolute Eosinophils 0.3, Absolute Basophils 0, PUBS MCHC 33.0 Lines/Diet/Fluids Lines: 2 pigtail catheters Assessment/Plan Assessment: Ms. Haney is 51 year old female presented to ED with chief complaint of right lateral neck and thoracic chest pain for 5 days. past medical history significant for hypertension, hypothyroidism, current smoker, right ear nerve deafness, diverticulitis status post colon resection. On admission Vital signs temperature 97.3, pulse 92, blood pressure 161/80, respiratory rate 18 saturating 92%. Pertinent WBC 25.3, H&H 14.8/44.3, platelet 329, sodium 133, potassium 5, BUN/ creatinine 13/0.8, lactic acid 1.2, INR 1.35. Ribs x-ray showed, Low lung volumes with basilar atelectasis with right-sided effusion. No fractures are seen. CT chest abdomen and pelvis with contrast showed, Right-sided pleural effusion with near-complete right lower lobe collapse. Moderate right middle lobe collapse, and mild right upper lobe collapse. Effusion is indeterminate in etiology. Indeterminate solitary 6 mm pulmonary nodules, other nodules in the collapsed portions of the right lung are not excluded. Multilobar Community-acquired pneumonia/acute hypoxic respiratory insufficiency Patient presented to Hospital with ongoing chest pain, shortness of breath, cough associated with sputum production. Also reported night sweats. Denied any fever or chills. She is afebrile with a WBC count elevated on admission 25, 000. CAT scan chest suggestive of right-sided pleural effusion with the right lower lung complete collapse and mild to moderate collapse of right upper and middle lobes.s/p indwelling pleural catheter - anterior and posterior * monitor vitals * Maintain oxygen saturation greater than 90% * Provide supplemental oxygen if necessary * Monitor closely for worsening leukocytosis, fever, shortness of breath * unasyn day 8 for better coverage of anearobes. * Right upper pleural fluid collection-no growth * Right lower pleural fluid collection-anaerobes and alpha strep * leukocytosis downtrending 15.2 today * robutussin with codeine and mucinex for cough * Total respiratory care * Nebulizer and inhaler treatments * Pain management Right-sided pleural effusion/ empyema * Right-sided pleural effusion most likely from pnemonia vs malignancy * thoracocentesis therapeutic and diagnostic, Right lower pleural fluid collection-anaerobes and alpha strep, Pleural fluid cytology, - f/u- NO MALIGNANCY * CT-guided thoracocentesis and right side pigtail catheter placement- 11/11/2016 * status post placement of a second pigtail catheter in the anterior collection 11/15/2016 [address]scan * monitor output from the pigtail catheters, 60 t0 70cc 24h drainge in ant catheter, and the very little drainage in post catheter in last 24h * continue unasyn * CT Scan without contrast planned tomorrow morning asper pulm recs Right lung nodule Indeterminate solitary 6 mm pulmonary nodules, other nodules in the collapsed portions of the right lung are not excluded. Small indeterminate mediastinal nodes. Single solid nodule average size 6-8 mm: * Low Risk Patient: CT at 6-12 months; then consider CT at 18-24 months. * High Risk Patient: CT at 6-12 months, then CT at 18-24 months. * Certain patients at high risk with suspicious nodule morphology, upper lobelocation, or both may warrant 12-month follow-up. Hypertension Continue home medication of amlodipine 5 mg Continue home medications lisinopril 10 mg Hypothyroidism Continue home medication levothyroxine 50 g daily Smoker Patient continues to smoke half pack every day Smoking cessation provided Nicotine patch Constipation Bowel regimen was added had bowel movement today DVT prophylaxis alps Full code Pain pathway Tylenol Motrin and morphine Heart healthy diet Problem List: 1. Pneumonia 2. Lung collapse 3. Pleural effusion Pain Ratin Pain Location: lower back Pain Goal: Pain 4 or less Pain Plan: Tylenol Motrin and morphine Tomorrow's Labs & Rationales: cbc bep cat scan chest DVT/Prophylaxis: mechanical Consulting Request: Consulting Specialty: Infectious Disease Discharge Plan Discharge Disposition: home Anticipated Discharge (Day): tomorrow
[2016-11-17 09:28] LABS: ABSOLUTE BASOPHIL COUNT 0 /CUMM (0.0-0.2); ABSOLUTE EOSINOPHIL COUNT 0.3 /CUMM (0.0-0.7); ABSOLUTE GRANULOCYTE CT 12.8 /CUMM (1.4-6.5); ABSOLUTE LYMPH COUNT 1.4 /CUMM (1.2-3.4); ABSOLUTE MONOCYTE COUNT 0.6 /CUMM (0.10-0.60); BASOPHIL % 0.2 % (0.0-2.0); EOSINOPHIL % 2.1 % (0-5); GRANULOCYTE % 84.7 % (42.2-75.2); HEMATOCRIT 37.8 % (37-47); MEAN CORPUSCULAR HGB 28.5 PG (27.0-31.0); MEAN CORPUSCULAR VOLUME 86.3 FL (81.0-99.0); MEAN PLATELET VOLUME 7.8 FL (7.4-10.4); PLATELET COUNT 504 /CUMM (130-400); RBC DISTRIBUTION WIDTH 13.9 % (11.5-14.5); RED BLOOD CELL CT 4.38 /CUMM (4.20-5.40)
--- NOTE | 2016-11-17 10:37 | PN- Pulmonary ---
Subjective HPI/Critical Care Issues: pt seen and examined 60-70cc in anterior chest tube over 24 hours little drainage in initial catheter wbc pending Objective Current Medications: Current Medications Sig/Cherry Start time Last Medication Dose Route Stop Time Status Admin Acetaminophen 650 MG Q6P PRN 11/08 2300 AC PO Albuterol Sulfate 3 ML BID 11/09 1137 AC 11/17 INH 1001 Amlodipine Besylate 5 MG DAILY 11/09 1000 AC 11/17 PO 1025 Ampicillin Sodium/ 3,000 MG Q6 11/11 1800 AC 11/17 Sulbactam Sodium IV 0552 Sodium Chloride 100 ML Docusate Sodium 100 MG DAILY NEEDED PRN 11/10 1100 AC 11/10 PO 1424 Guaifenesin 600 MG Q12 11/13 1030 AC 11/17 PO 1021 Guaifenesin/ 10 ML Q6 11/12 1000 AC 11/17 Dextromethorphan PO 0553 Ibuprofen 600 MG Q6P PRN 11/08 2300 AC 11/17 PO 0002 Levothyroxine Sodium 0.05 MG DAILY AC 11/09 0700 AC 11/17 PO 0553 Lisinopril 10 MG DAILY 11/09 1000 AC 11/17 PO 1025 Morphine Sulfate 2 MG Q4 HRS NEEDED PRN 11/09 1815 AC 11/11 IV 0143 Polyethylene Glycol 17 GM DAILY PRN 11/10 1100 AC 11/10 PO 1424 Vital Signs & I&O Last 24 Hrs of Vitals and I&O: Vital Signs Date Time Temp Pulse Resp B/P B/P Pulse O2 O2 Flow FiO2 Mean Ox Delivery Rate 11/17 1025 80 144/78 11/17 1025 144/78 11/17 1012 95 Room Air 11/17 0630 99.1 83 20 142/80 93 Room Air 11/17 0000 Room Air 11/16 2158 99.0 95 20 152/62 94 Room Air 11/16 1855 94 Room Air 11/16 1421 99.0 95 20 164/66 94 Intake & Output 11/17 1600 /02 0800 11/17 0000 Intake Total 540 580 Output Total 615 400 Balance -75 180 Intake, IV 240 100 Intake, Oral 300 480 Output, Chest 15 Tube Drainage Output, Urine 600 400 Exam Other Physical Findings: gen awake and alert heent ncat cvs s1, s2 lungs rare rhonchi, reduced bs at bases abd soft, bs+ ext without edema Results Last 24 Hrs of Lab Results: Laboratory Tests 11/17/16 0805: Anion Gap 10, Estimated GFR > 60, BUN/Creatinine Ratio 12.0, CBC w Diff Pending, WBC Pending, RBC Pending, Hgb Pending, Hct Pending, MCV Pending, MCH Pending, RDW Pending, Plt Count Pending, MPV Pending, Gran % Pending, Lymphocytes % Pending, Monocytes % Pending, Eosinophils % Pending, Basophils % Pending, Absolute Granulocytes Pending, Absolute Lymphocytes Pending, Absolute Monocytes Pending, Absolute Eosinophils Pending, Absolute Basophils Pending, PUBS MCHC Pending Impression/Plan Impression/Plan Impression/Plan: Impression 51 year old woman * empyema * CT chest with residual pleural fluid Plan -s/p anterior indwelling pleural catheter - anterior -monitor both pigtail output -CT chest without contrast in am. Please ensure this is done early to carry out further plan such as lytics vs chest tube removal depending on the results -cont ID follow up/abx DVT prophylaxis at all times
[2016-11-17 10:39] LABS: WHITE BLOOD CELL COUNT 15.2 /CUMM (4.8-10.8)
--- NOTE | 2016-11-17 12:12 | PN- Att Addend ---
Attending MD Review Statement Attending Statement Attending MD Statement: examined this patient, discuss w/resident/PA/SALES PERSON, agreed w/resident/PA/SALES PERSON, reviewed EMR data (avail), discussed w/nursing Attending Assessment/Plan: Laboratory Tests 11/17/16 0805: Anion Gap 10, Estimated GFR > 60, BUN/Creatinine Ratio 12.0, CBC w Diff NO MAN DIFF REQ, RBC 4.38, MCV 86.3, MCH 28.5, RDW 13.9, MPV 7.8, Gran % 84.7 H, Lymphocytes % 9.3 L, Monocytes % 3.7, Eosinophils % 2.1, Basophils % 0.2, Absolute Granulocytes 12.8 H, Absolute Lymphocytes 1.4, Absolute Monocytes 0.6, Absolute Eosinophils 0.3, Absolute Basophils 0, PUBS MCHC 33.0 Vital Signs Date Time Temp Pulse Resp B/P B/P Pulse O2 O2 Flow FiO2 Mean Ox Delivery Rate 11/17 1025 80 144/78 11/17 1025 144/78 11/17 1012 95 Room Air 11/17 0630 99.1 83 20 142/80 93 Room Air 11/17 0000 Room Air 11/16 2158 99.0 95 20 152/62 94 Room Air / 1855 94 Room Air / 1421 99.0 95 20 164/66 94 empyema s/p drainage with 2 pigtail catheters. con on iv unasyn. Alpha strep on cultures. wbc improving. afebrile, drained 110cc yesterday from pigtail, pulmonary following. Repeat CT chest tomorrow. d/w pt the care plan.
[2016-11-17 14:21] VITALS: BP 172/66
--- NOTE | 2016-11-17 17:03 | Event Note ---
Event Note Event Note: I was paged around 4:30 that the patient had MAXIMUM TEMPERATURE of 101.9. I went and examined the patient. She was sweating and anxious. We have decided to order blood and urine culture. Stool fromed, culture not needed.
[2016-11-17 18:11] VITALS: BP 148/68
[2016-11-17 22:49] VITALS: BP 148/60
[2016-11-18 06:51] VITALS: BP 134/86
--- NOTE | 2016-11-18 08:37 | PN- Housestaff ---
[facility] 11/18/16 0837: Subjective Follow-up For: Pneumonia Empyema Lung collapse Pulmonary nodules Complaints: no complaints Subjective: I have seen and examined the patient. The patient was sitting comfortably in her bed. There were no overnight acute events. She denies any sputum production, cough and shortness of breath. She is afebrile. She has 2 pigtail catheters. She does not complain of chest pain or palpitations. She has had 4 episodes of loose stool. Review of Systems Constitutional: Reports: no symptoms. EENTM: Reports: no symptoms. Cardiovascular: Denies: chest pain, edema, orthopena, palpitations. Respiratory: Denies: cough, hemoptysis, orthopnea, short of breath, sputum production, stridor, wheezing. Gastrointestinal: Reports: diarrhea. Denies: abdominal pain, bloating, nausea, vomiting. Genitourinary: Reports: no symptoms. Musculoskeletal: Reports: no symptoms. Skin: Reports: no symptoms. Objective Last 24 Hrs of Vital Signs/I&O Vital Signs Date Time Temp Pulse Resp B/P B/P Pulse O2 O2 Flow FiO2 Mean Ox Delivery Rate 11/18 0937 97 150/82 11/18 0937 97 150/82 11/18 0651 97.8 84 18 134/86 94 Room Air 11/18 0000 Room Air 11/17 2343 99.7 / 2249 99.7 90 22 148/60 91 Room Air 11/17 2127 100.7 / 1940 96 Room Air 11/17 1811 98.8 148/68 11/17 1446 100.4 / 1421 100.7 108 94 172/66 22 11/17 1347 100.3 Intake & Output 11/18 1600 11/18 0800 11/18 0000 Intake Total 200 400 Output Total 430 300 Balance -230 100 Intake, IV 200 Intake, Oral 400 Output, Chest 30 Tube Drainage Output, Urine 400 300 Physical Exam General Appearance: Alert, Oriented X3, Cooperative, No Acute Distress Skin: No Rashes, No Breakdown Neck: Supple Cardiovascular: Normal S1, Normal S2 Lungs: Clear to Auscultation, breath sound diminsghed at right base Abdomen: Normal Bowel Sounds, Soft, No Tenderness, No Masses Neurological: Normal Speech Current Medications: Current Medications Sig/Cherry Start time Last Medication Dose Route Stop Time Status Admin Acetaminophen 650 MG Q6P PRN 11/08 2300 AC PO Albuterol Sulfate 3 ML BID 11/09 1137 AC 11/18 INH 1054 Amlodipine Besylate 5 MG DAILY 11/09 1000 AC 11/18 PO 0937 Ampicillin Sodium/ 3,000 MG Q6 11/11 1800 AC 11/18 Sulbactam Sodium IV 1732 Sodium Chloride 100 ML Docusate Sodium 100 MG DAILY NEEDED PRN 11/10 1100 AC 11/10 PO 1424 Guaifenesin 600 MG Q12 11/13 1030 AC 11/18 PO 0936 Guaifenesin/ 10 ML Q6 11/12 1000 AC 11/18 Dextromethorphan PO 1731 Heparin Sodium 5,000 UNIT Q8 11/18 0954 AC 11/18 (Porcine) SC 1200 Ibuprofen 600 MG Q6P PRN 11/08 2300 AC 11/18 PO 1158 Levothyroxine Sodium 0.05 MG DAILY AC 11/09 0700 AC 11/18 PO 0627 Lisinopril 20 MG DAILY 11/18 1000 AC 11/18 PO 0937 Lorazepam 0.5 MG ONE PRN 11/17 1700 DC PO 11/17 1900 Morphine Sulfate 2 MG Q4 HRS NEEDED PRN 11/09 1815 AC 11/11 IV 0143 Polyethylene Glycol 17 GM DAILY PRN 11/10 1100 AC 11/10 PO 1424 Last 24 Hrs of Lab/Javon Results Last 24 Hrs of Labs/Mics: Laboratory Tests 11/18/16 0803: Anion Gap 11, Estimated GFR > 60, BUN/Creatinine Ratio 18.0, CBC w Diff NO MAN DIFF REQ, RBC 4.34, MCV 86.1, MCH 28.4, RDW 13.7, MPV 7.8, Gran % 84.3 H, Lymphocytes % 10.5 L, Monocytes % 4.0, Eosinophils % 1.0, Basophils % 0.2, Absolute Granulocytes 13.7 H, Absolute Lymphocytes 1.7, Absolute Monocytes 0.7 H, Absolute Eosinophils 0.2, Absolute Basophils 0, PUBS MCHC 33.0 Microbiology 11/18 1741 STOOL: Clostridium difficile Toxin A & B - COLB 11/18 1741 STOOL: Stool Culture - COLB 11/17 1901 BLOOD: Blood Culture - RES 11/17 184 BLOOD: Blood Culture - RES Lines/Diet/Fluids Catheters/Tubes: 2 pigtail catherters Drains Still Needed? Yes Assessment/Plan Assessment: Ms. Haney is 51 year old female presented to ED with chief complaint of right lateral neck and thoracic chest pain for 5 days. PMH significant for hypertension, hypothyroidism, current smoker, right ear nerve deafness, diverticulitis status post colon resection. Patient presented to Hospital with ongoing chest pain, shortness of breath, cough associated with sputum production. Also reported night sweats. Denied any fever or chills. She was afebrile with a WBC count elevated on admission 25 ,000 On admission Vital signs temperature 97.3, pulse 92, blood pressure 161/80, respiratory rate 18 saturating 92%. Pertinent WBC 25.3, H&H 14.8/44.3, platelet 329, sodium 133, potassium 5, BUN/ creatinine 13/0.8, lactic acid 1.2, INR 1.35. Ribs x-ray showed, Low lung volumes with basilar atelectasis with right-sided effusion. No fractures are seen. CT of the chest November 18 reveals no drainable collections, with a decrease in the anterolateral fluid collection, with a small effusion remaining, a small effusion remaining in the posterior chest, near complete collapse/consolidation of the right middle lobe with air bronchograms and mild to moderate collapse of the right lower lobe, with atelectasis/consolidation Multilobar Community-acquired pneumonia/acute hypoxic respiratory insufficiency S/p indwelling pleural catheter - anterior and posterior. She continues to spike fevers * unasyn day 9 for alpha strep and anaerobes * Right upper pleural fluid collection-no growth, Right lower pleural fluid collection-anaerobes and alpha strep * leukocytosis 16.3 * Following ID and Pulm Reccomendations * monitor vitals * Maintain oxygen saturation greater than 90%, supplemental oxygen if necessary * Monitor closely for worsening leukocytosis, fever, shortness of breath * Robutussin with codeine and mucinex for cough * Total respiratory care, Nebulizer and inhaler treatments * Pain management * Blood culture and urine culture were sent yesterday. No growth so far.will follow up Right-sided pleural effusion/ empyema/collapse * Right-sided pleural effusion most likely from pnemonia vs malignancy * thoracocentesis therapeutic and diagnostic, Right lower pleural fluid collection-anaerobes and alpha strep, Pleural fluid cytology, - f/u- NO MALIGNANCY * CT-guided thoracocentesis and right side pigtail catheter placement- 11/11/2016 * status post placement of a second pigtail catheter in the anterior collection 11/15/[address]scan * monitor output from the pigtail catheters. Post Pigtail catheter had no output yesterday and 20 mL overnight; pigtail catheter in the right anterior chest had 15 mL output yesterday and 10 mL overnight * continue unasyn DAY 9 * CT of the chest November 18 reveals no drainable collections, with a decrease in the anterolateral fluid collection, with a small effusion remaining, a small effusion remaining in the posterior chest, near complete collapse/consolidation of the right middle lobe with air bronchograms and mild to moderate collapse of the right lower lobe, with atelectasis/consolidation * She may require decortication * Pulm, ID and thorcic surgery on board Right lung nodule Indeterminate solitary 6 mm pulmonary nodules, other nodules in the collapsed portions of the right lung are not excluded. Small indeterminate mediastinal nodes. * will need follow up Hypertension Continue home medication of amlodipine 5 mg Continue home medications lisinopril 10 mg Hypothyroidism Continue home medication levothyroxine 50 g daily Smoker Patient continues to smoke half pack every day Smoking cessation provided Nicotine patch Diarrhea Patient had 4 episodes of loose stool. stool culture and c.diff toxin ordered will follow up DVT prophylaxis alps Full code Pain pathway Tylenol Motrin and morphine Heart healthy diet Problem List: 1. Pleural effusion 2. Lung collapse 3. Pneumonia Pain Ratin Pain Location: mid back right side Pain Goal: Pain 4 or less Pain Plan: Tylenol Motrin and morphine Tomorrow's Labs & Rationales: cbc bep DVT/Prophylaxis: pharmacological, Heparin Consulting Request: Consulting Specialty: Thoracic/Vascular Surgery (pulm) LYNN KIM MDESHA 11/18/16 1221: Attending MD Review Statement Attending Statement Attending MD Statement: examined this patient, discuss w/resident/PA/EPOXY FABRICATION SUPERVISOR, agreed w/resident/PA/EPOXY FABRICATION SUPERVISOR, discussed with family, reviewed EMR data (avail), discussed with nursing, discussed with case mgmt, reviewed images, amended to note Attending Assessment/Plan: Patient seen and examined, just came back from her CAT scan. Her back pain is slightly better today. She denies any shortness of breath. She continues to spike fevers. She has been kept on Unasyn and has 2 chest tubes in. Vital Signs Date Time Temp Pulse Resp B/P B/P Pulse O2 O2 Flow FiO2 Mean Ox Delivery Rate 11/18 1158 101.1 11/18 1058 96 Room Air Room Air 11/18 0937 97 150/82 11/18 0937 97 150/82 11/18 0651 97.8 84 18 134/86 94 Room Air 11/18 0000 Room Air 11/17 2343 99.7 11/17 2249 99.7 90 22 148/60 91 Room Air 11/17 2127 100.7 11/17 1940 96 Room Air 11/17 1811 98.8 148/68 11/17 1446 100.4 11/17 1421 100.7 108 94 172/66 22 11/17 1347 100.3 on exam; aox3, nad. cv; s1,s, rrr resp; decreased bs at right base. abd; soft, nt, bs+ ext; no edema. Laboratory Tests 11/18 0803 Chemistry Sodium (137 - 145 mmol/L) 137 Potassium (3.5 - 5.1 mmol/L) 4.7 Chloride (98 - 107 mmol/L) 100 Carbon Dioxide (22 - 30 mmol/L) 26 Anion Gap (5 - 16) 11 BUN (7 - 17 mg/dL) 9 Creatinine (0.5 - 1.0 mg/dL) 0.5 Estimated GFR (>60 ml/min) > 60 BUN/Creatinine Ratio (7 - 25 %) 18.0 Hematology CBC w Diff NO MAN DIFF REQ WBC (4.8 - 10.8 /CUMM) 16.3 H RBC (4.20 - 5.40 /CUMM) 4.34 Hgb (12.0 - 16.0 G/DL) 12.3 Hct (37 - 47 %) 37.3 MCV (81.0 - 99.0 FL) 86.1 MCH (27.0 - 31.0 PG) 28.4 RDW (11.5 - 14.5 %) 13.7 Plt Count (130 - 400 /CUMM) 567 H MPV (7.4 - 10.4 FL) 7.8 Gran % (42.2 - 75.2 %) 84.3 H Lymphocytes % (20.5 - 51.1 %) 10.5 L Monocytes % (1.7 - 9.3 %) 4.0 Eosinophils % (0 - 5 %) 1.0 Basophils % (0.0 - 2.0 %) 0.2 Absolute Granulocytes (1.4 - 6.5 /CUMM) 13.7 H Absolute Lymphocytes (1.2 - 3.4 /CUMM) 1.7 Absolute Monocytes (0.10 - 0.60 /CUMM) 0.7 H Absolute Eosinophils (0.0 - 0.7 /CUMM) 0.2 Absolute Basophils (0.0 - 0.2 /CUMM) 0 PUBS MCHC (33.0 - 37.0 G/DL) 33.0 A/P; 51 y/o F with pmh sig for hypertension, hypothyroidism, current smoker, right ear nerve deafness, diverticulitis status post colon resection admitted with the back pain and shortness of breath and found to have empyema. Status post chest tube placement 2. Had been kept on Unasyn. Patient continues to spike fever and chest CT today shows decreased amount of fluid that is remaining. As per discussion between pulmonology and infectious disease, patient will need a thoracic surgery evaluation for possible decortication. Continue Unasyn at the same dose continue all other current medications. DVT px: Heparin subcutaneous. D/W family at bedside.
[2016-11-18 08:51] LABS: ABSOLUTE BASOPHIL COUNT 0 /CUMM (0.0-0.2); ABSOLUTE EOSINOPHIL COUNT 0.2 /CUMM (0.0-0.7); ABSOLUTE GRANULOCYTE CT 13.7 /CUMM (1.4-6.5); ABSOLUTE LYMPH COUNT 1.7 /CUMM (1.2-3.4); ABSOLUTE MONOCYTE COUNT 0.7 /CUMM (0.10-0.60); BASOPHIL % 0.2 % (0.0-2.0); HEMATOCRIT 37.3 % (37-47); MEAN CORPUSCULAR HGB 28.4 PG (27.0-31.0); MEAN CORPUSCULAR VOLUME 86.1 FL (81.0-99.0); MEAN PLATELET VOLUME 7.8 FL (7.4-10.4); PLATELET COUNT 567 /CUMM (130-400); RBC DISTRIBUTION WIDTH 13.7 % (11.5-14.5); RED BLOOD CELL CT 4.34 /CUMM (4.20-5.40); WHITE BLOOD CELL COUNT 16.3 /CUMM (4.8-10.8)
[2016-11-18 09:54] LABS: GRANULOCYTE % 84.3 % (42.2-75.2)
--- NOTE | 2016-11-18 10:03 | PN- Pulmonary ---
Subjective HPI/Critical Care Issues: pt seen and examined tmax 100.[address] chest diminished drainage Objective Current Medications: Current Medications Sig/Cherry Start time Last Medication Dose Route Stop Time Status Admin Acetaminophen 650 MG Q6P PRN 11/08 2300 AC PO Albuterol Sulfate 3 ML BID 11/09 1137 AC 11/17 INH 1940 Amlodipine Besylate 5 MG DAILY 11/09 1000 AC 11/18 PO 0937 Ampicillin Sodium/ 3,000 MG Q6 11/11 1800 AC 11/18 Sulbactam Sodium IV 0555 Sodium Chloride 100 ML Docusate Sodium 100 MG DAILY NEEDED PRN 11/10 1100 AC 11/10 PO 1424 Guaifenesin 600 MG Q12 11/13 1030 AC 11/18 PO 0936 Guaifenesin/ 10 ML Q6 11/12 1000 AC 11/18 Dextromethorphan PO 0555 Heparin Sodium 5,000 UNIT Q8 11/18 0954 UNVr (Porcine) SC Ibuprofen 600 MG Q6P PRN 11/08 2300 AC 11/17 PO 2127 Levothyroxine Sodium 0.05 MG DAILY AC 11/09 0700 AC 11/18 PO 0627 Lisinopril 20 MG DAILY 11/18 1000 AC 11/18 PO 0937 Lisinopril 10 MG DAILY 11/09 1000 DC 11/17 PO 1025 Lorazepam 0.5 MG ONE PRN 11/17 1700 DC PO 11/17 1900 Morphine Sulfate 2 MG Q4 HRS NEEDED PRN 11/09 1815 AC 11/11 IV 0143 Polyethylene Glycol 17 GM DAILY PRN 11/10 1100 AC 11/10 PO 1424 Vital Signs & I&O Last 24 Hrs of Vitals and I&O: Vital Signs Date Time Temp Pulse Resp B/P B/P Pulse O2 O2 Flow FiO2 Mean Ox Delivery Rate 11/18 0937 97 150/82 11/18 0937 97 150/82 11/18 0651 97.8 84 18 134/86 94 Room Air 11/18 0000 Room Air 11/17 2343 99.7 / 2249 99.7 90 22 148/60 91 Room Air / 2127 100.7 / 1940 96 Room Air / 1811 98.8 148/68 07/ 1446 100.4 07/ 1421 100.7 108 94 172/66 22 11/17 1347 100.3 07/02 1025 80 144/78 11/17 1025 144/78 11/17 1012 95 Room Air Intake & Output 11/18 1600 11/18 0800 11/18 0000 Intake Total 200 400 Output Total 430 300 Balance -230 100 Intake, IV 200 Intake, Oral 400 Output, Chest 30 Tube Drainage Output, Urine 400 300 Exam Other Physical Findings: gen awake and alert heent ncat cvs s1, s2, systolic murmur lungs rare rhonchi abd soft bs+ ext edematous Results Last 24 Hrs of Lab Results: Laboratory Tests 11/18/16 08: Anion Gap 11, Estimated GFR > 60, BUN/Creatinine Ratio 18.0, CBC w Diff NO MAN DIFF REQ, RBC 4.34, MCV 86.1, MCH 28.4, RDW 13.7, MPV 7.8, Gran % 84.3 H, Lymphocytes % 10.5 L, Monocytes % 4.0, Eosinophils % 1.0, Basophils % 0.2, Absolute Granulocytes 13.7 H, Absolute Lymphocytes 1.7, Absolute Monocytes 0.7 H, Absolute Eosinophils 0.2, Absolute Basophils 0, PUBS MCHC 33.0 Impression/Plan Impression/Plan Impression/Plan: Impression 51 year old woman * empyema * CT chest with residual pleural fluid Plan -s/p anterior indwelling pleural catheter - anterior -monitor both pigtail output -CT chest without contrast this am -cont ID follow up/abx DVT prophylaxis at all times
--- NOTE | 2016-11-18 11:51 | CT SCAN REPORT ---
EXAMINATION: CT CHEST WITHOUT CONTRAST CLINICAL INFORMATION: Reassess fluid collection. COMPARISON: CT 11/15/2016. TECHNIQUE: Multidetector volumetric CT imaging of the chest was done. Axial MIP volume rendering provided. Sagittal and coronal reformatted images were obtained. DLP: 645.65 mGy-cm FINDINGS: LUNGS, PLEURA: There is a right-sided chest tube positioned along the anterolateral aspect of the right lower chest. Previously noted fluid collection has decreased in size as compared to previous, with small effusion remaining. There is an additional drainage catheter located along the posterior aspect of the right lower lung, with small effusion remaining. Small foci of air seen in the pleural space posteriorly, anterolaterally, likely related to the drainage catheters. There is near-complete/complete collapse/consolidation of right middle lobe, with presence of air bronchograms. There is [id number] collapse of the right lower lobe, with atelectasis/consolidation present in this region, similar to previous. No focal consolidation left lung. MEDIASTINUM: Similar appearance of mediastinal lymphadenopathy. No hilar lymphadenopathy. Normal heart size. No pericardial effusion. Coronary artery calcification. AXILLAE: No axillary lymphadenopathy. UPPER ABDOMEN: Diffuse hepatic steatosis. OSSEOUS STRUCTURES: Multiple degenerative changes in the dorsal spine. IMPRESSION: 1. Right-sided chest tube in the anterolateral aspect of the right lower lung, with interval decrease in the pleural effusion in this region. There is a pigtail catheter in the posterior pleural space in the right lung, with small effusion present. There are foci of air in the posterior and the anterolateral pleural space, probably related to the catheters. 2. Persistent near-complete/complete collapse in the right middle lobe. Persistent [id number] volume loss in the right lower lobe, with atelectasis/consolidation.
--- NOTE | 2016-11-18 12:11 | PN- Infect Dx ---
Subjective Subjective: MAXIMUM TEMPERATURE 100.7, though an event note reports a temperature to 101.9. She notes back discomfort but denies any shortness of breath or cough. Objective Last 24 Hrs of Vital Signs/I&O Vital Signs Date Time Temp Pulse Resp B/P B/P Pulse O2 O2 Flow FiO2 Mean Ox Delivery Rate 11/18 1058 96 Room Air Room Air 11/18 0937 97 150/82 11/18 0937 97 150/82 11/18 0651 97.8 84 18 134/86 94 Room Air 11/18 0000 Room Air 11/17 2343 99.7 11/17 2249 99.7 90 22 148/60 91 Room Air 11/17 2127 100.7 11/17 1940 96 Room Air 11/17 1811 98.8 148/68 11/17 1446 100.4 11/17 1421 100.7 108 94 172/66 22 02 1347 100.3 Intake & Output 11/18 1600 11/18 0800 11/18 0000 Intake Total 200 400 Output Total 430 300 Balance -230 100 Intake, IV 200 Intake, Oral 400 Output, Chest 30 Tube Drainage Output, Urine 400 300 Physical Exam Other Physical Findings: She appears comfortable in no acute distress Chest pigtail catheter in the right mid back, with no output yesterday and 20 mL overnight; pigtail catheter in the right anterior chest with 15 mL output yesterday and 10 mL overnight Lungs slight decreased breath sounds at the right base Heart regular rhythm with no murmur Results Last 24 Hours of Lab Results: Laboratory Tests 11/18 0803 Chemistry Sodium (137 - 145 mmol/L) 137 Potassium (3.5 - 5.1 mmol/L) 4.7 Chloride (98 - 107 mmol/L) 100 Carbon Dioxide (22 - 30 mmol/L) 26 Anion Gap (5 - 16) 11 BUN (7 - 17 mg/dL) 9 Creatinine (0.5 - 1.0 mg/dL) 0.5 Estimated GFR (>60 ml/min) > 60 BUN/Creatinine Ratio (7 - 25 %) 18.0 Hematology CBC w Diff NO MAN DIFF REQ WBC (4.8 - 10.8 /CUMM) 16.3 H RBC (4.20 - 5.40 /CUMM) 4.34 Hgb (12.0 - 16.0 G/DL) 12.3 Hct (37 - 47 %) 37.3 MCV (81.0 - 99.0 FL) 86.1 MCH (27.0 - 31.0 PG) 28.4 RDW (11.5 - 14.5 %) 13.7 Plt Count (130 - 400 /CUMM) 567 H MPV (7.4 - 10.4 FL) 7.8 Gran % (42.2 - 75.2 %) 84.3 H Lymphocytes % (20.5 - 51.1 %) 10.5 L Monocytes % (1.7 - 9.3 %) 4.0 Eosinophils % (0 - 5 %) 1.0 Basophils % (0.0 - 2.0 %) 0.2 Absolute Granulocytes (1.4 - 6.5 /CUMM) 13.7 H Absolute Lymphocytes (1.2 - 3.4 /CUMM) 1.7 Absolute Monocytes (0.10 - 0.60 /CUMM) 0.7 H Absolute Eosinophils (0.0 - 0.7 /CUMM) 0.2 Absolute Basophils (0.0 - 0.2 /CUMM) 0 PUBS MCHC (33.0 - 37.0 G/DL) 33.0 Last 24 Hours of Javon Results: Blood cultures 2 November 17 negative Urine culture November 17 negative Right pleural fluid culture (anterior collection) November 15 negative Recent Imaging Studies: CT of the chest November 18, discussed with IR, reveals no drainable collections, with a decrease in the anterolateral fluid collection, with a small effusion remaining, a small effusion remaining in the posterior chest, near complete collapse/consolidation of the right middle lobe with air bronchograms and mild to moderate collapse of the right lower lobe, with atelectasis/consolidation Assessment/Plan Impression: Persistent fevers and leukocytosis despite placement of a second pigtail catheter in the anterior collection 3 days ago, with only 2 mL obtained under ultrasound, [address] scan, and with minimal drainage over the past 2 days both from this catheter as well as from the original posterior catheter, suggesting that she might have undrained fluid in the chest, but the CT scan from today does not reveal any drainable collections and, after discussion with Pulmonary, there is apparently no role for lytics; therefore she may ultimately require decortication. She remains on Unasyn Day 7 of treatment for alpha strep and anaerobes isolated from the initial thoracentesis. Suggestion: 1. Thoracic surgery evaluation 2. Continue Unasyn
--- NOTE | 2016-11-18 13:07 | Cons- Thoracic Surgery ---
MAGED LAYNE PA-C 11/18/16 1306: General Information and HPI Consulting Request Date of Consult: 11/18/16 Requested By: DIPTI HOPKINS MD Reason for Consult: Pneumonia Source of Information: patient, old records Exam Limitations: no limitations History of Present Illness: 51-year-old female, longtime smoker, admitted 10 days ago to the hospitalist service with Community-acquired pneumonia, (alpha strep and gram-negative omar based on culture ) Right side pleural effusion/empyema , partial lung collapse right middle and lower lobe, s/p post pig tail catheter placement 11/11/2016 and ant pig tail catherter placement 11/15/2016. She presented with a chronic cough and sharp sudden onset severe right-sided posterior stabbing mid back and flank pain. She was admitted to medical service, had 2 catheters placed as mentioned above, placed on IV antibiotics, currently on Unasyn,who continues to have spiking fevers and leukocytosis . Patient states that she is overall feeling significantly better, her pain is much improved, she is not taking any pain medication in a few days, she has intermittent fever and feeling diaphoresis at times, mostly at night which is improved with Motrin. She does not feel short of breath, she is weaned off the oxygen, she is not having any significant productive cough. Thoracic surgery was consulted for possible intervention. Allergies/Medications Allergies: Coded Allergies: No Known Allergies (11/08/16) Home Med List: Amlodipine Besylate 5 MG TABLET 1 TAB PO DAILY HTN (Reported) Levothyroxine Sodium 50 MCG TABLET 1 TAB PO DAILY THYROID (Reported) Lisinopril 10 MG TABLET 1 TAB PO DAILY HTN (Reported) Naproxen Sodium 550 MG TABLET 1 TAB PO BID PAIN (Reported) Past History Medical History Blood Transfusion Hx: No Neurological: NONE EENT: hearing loss (right ear) Cardiovascular: hypertension Respiratory: NONE Gastrointestinal: COLON RESECTION Hepatic: NONE Renal: NONE Musculoskeletal: NONE Psychiatric: NONE Endocrine: hypothyroidism Blood Disorders: NONE Cancer(s): NONE DRIVER EDUCATION INSTRUCTOR/Reproductive: NONE Surgical History Pertinent Surgical History: colon resection cervical spine surgery Psychosocial History Smoking Status: Current Everyday Smoker ETOH Use: occasional use Illicit Drug Use: marijuana Review of Systems Review of Systems: Review of systems: See HPI, all other systems negative. Constitutional: See HPI HEENT: No visual changes no sore throat no congestion Cardiovascular: No chest pain ,palpitation , orthopnea or ankle swelling Skin: No jaundice no rashes Respiratory: See HPI GI: No nausea no vomiting : No dysuria no hematuria Musclulo skeletal: Right-sided mid back pain has resolved. No neck pain, Neurologic: No numbness no confusion Psych: No stress anxiety or depression,. Heme/endocrine: No bruising no bleeding no polyuria or polydipsia Immunology: No splenectomy or history of AIDS Exam & Diagnostic Data Vital Signs and I&O Vital Signs Date Time Temp Pulse Resp B/P B/P Pulse O2 O2 Flow FiO2 Mean Ox Delivery Rate 11/18 1255 98.9 11/18 1158 101.1 11/18 1058 96 Room Air Room Air 11/18 0937 97 150/82 11/18 0937 97 150/82 11/18 0651 97.8 84 18 134/86 94 Room Air 11/18 0000 Room Air 11/17 2343 99.7 11/17 2249 99.7 90 22 148/60 91 Room Air 11/17 2127 100.7 11/17 1940 96 Room Air 11/17 1811 98.8 148/68 11/17 1446 100.4 11/17 1421 100.7 108 94 172/66 22 11/17 1347 100.3 Intake & Output 11/18 1600 11/18 0800 11/18 0000 11/17 1600 11/17 0800 11/17 0000 Intake Total 200 400 600 540 580 Output Total 430 300 400 615 400 Balance -230 100 200 -75 180 Intake, IV 200 240 100 Intake, Oral 400 600 300 480 Number 2 Bowel Movements Output, Chest 30 15 Tube Drainage Output, Urine 400 300 400 600 400 Physical Exam: Well-developed well-nourished no apparent distress. Sitting in her chair, no respiratory distress, speaking in full sentences. HEENT: Atraumatic, extraocular motion intact Neck: Supple, no lymphadenopathy Heart: Regular rate and rhythm no murmur Respiratory: No respiratory distress. Left lung is clear, right lung is diminished with crackles at the mid and lower lung. 2 catheters noted, one anterior one posterior, small amount of serous sanguinous fluid in the anterior 1, small amount of purulent and bloody fluid in the posterior Abdomen: Soft, nontender nondistended Extremities: No edema, no calf pain Neuro: Alert and oriented x3 Psych: Mood affect normal, normal memory normal judgment. Skin: Warm and dry, no rash on exposed skin Last 24 Hours of Labs: Laboratory Tests 11/18 0803 Chemistry Sodium (137 - 145 mmol/L) 137 Potassium (3.5 - 5.1 mmol/L) 4.7 Chloride (98 - 107 mmol/L) 100 Carbon Dioxide (22 - 30 mmol/L) 26 Anion Gap (5 - 16) 11 BUN (7 - 17 mg/dL) 9 Creatinine (0.5 - 1.0 mg/dL) 0.5 Estimated GFR (>60 ml/min) > 60 BUN/Creatinine Ratio (7 - 25 %) 18.0 Hematology CBC w Diff NO MAN DIFF REQ WBC (4.8 - 10.8 /CUMM) 16.3 H RBC (4.20 - 5.40 /CUMM) 4.34 Hgb (12.0 - 16.0 G/DL) 12.3 Hct (37 - 47 %) 37.3 MCV (81.0 - 99.0 FL) 86.1 MCH (27.0 - 31.0 PG) 28.4 RDW (11.5 - 14.5 %) 13.7 Plt Count (130 - 400 /CUMM) 567 H MPV (7.4 - 10.4 FL) 7.8 Gran % (42.2 - 75.2 %) 84.3 H Lymphocytes % (20.5 - 51.1 %) 10.5 L Monocytes % (1.7 - 9.3 %) 4.0 Eosinophils % (0 - 5 %) 1.0 Basophils % (0.0 - 2.0 %) 0.2 Absolute Granulocytes (1.4 - 6.5 /CUMM) 13.7 H Absolute Lymphocytes (1.2 - 3.4 /CUMM) 1.7 Absolute Monocytes (0.10 - 0.60 /CUMM) 0.7 H Absolute Eosinophils (0.0 - 0.7 /CUMM) 0.2 Absolute Basophils (0.0 - 0.2 /CUMM) 0 PUBS MCHC (33.0 - 37.0 G/DL) 33.0 Imaging Results: PATIENT: CAROLINE SAM PRESENT AGE: 51 PATIENT ACCOUNT NO: [id number] : 64 LOCATION: 2NA ORDERING PHYSICIAN: AGA CAN MD SERVICE DATE: 11/18/16 EXAM TYPE: CAT - CT CHEST WO IV CONTRAST EXAMINATION: CT CHEST WITHOUT CONTRAST CLINICAL INFORMATION: Reassess fluid collection. COMPARISON: CT 11/15/2016. TECHNIQUE: Multidetector volumetric CT imaging of the chest was done. Axial MIP volume rendering provided. Sagittal and coronal reformatted images were obtained. DLP: 645.65 mGy-cm FINDINGS: LUNGS, PLEURA: There is a right-sided chest tube positioned along the anterolateral aspect of the right lower chest. Previously noted fluid collection has decreased in size as compared to previous, with small effusion remaining. There is an additional drainage catheter located along the posterior aspect of the right lower lung, with small effusion remaining. Small foci of air seen in the pleural space posteriorly, anterolaterally, likely related to the drainage catheters. There is near-complete/complete collapse/consolidation of right middle lobe, with presence of air bronchograms. There is krdd-lw-crsguhnz collapse of the right lower lobe, with atelectasis/consolidation present in this region, similar to previous. No focal consolidation left lung. MEDIASTINUM: Similar appearance of mediastinal lymphadenopathy. No hilar lymphadenopathy. Normal heart size. No pericardial effusion. Coronary artery calcification. AXILLAE: No axillary lymphadenopathy. UPPER ABDOMEN: Diffuse hepatic steatosis. OSSEOUS STRUCTURES: Multiple degenerative changes in the dorsal spine. IMPRESSION: 1. Right-sided chest tube in the anterolateral aspect of the right lower lung, with interval decrease in the pleural effusion in this region. There is a pigtail catheter in the posterior pleural space in the right lung, with small effusion present. There are foci of air in the posterior and the anterolateral pleural space, probably related to the catheters. 2. Persistent near-complete/complete collapse in the right middle lobe. Persistent iiep-mc-qeufmqzp volume loss in the right lower lobe, with atelectasis/consolidation. DICTATED BY: NOMI CUI MD DATE/TIME DICTATED:11/18/161104 ROLL CAPPER:JADE DATE/TIME TRANSCRIBED:11/18/161104 Assessment/Plan Assessment/Plan 51-year-old female with really quite pneumonia, alpha strep and gram-negative omar, on Unasyn, persistent fever and leukocytosis with persistent right middle and lower lobe consolidation and collapse who is overall feeling better with improved respiratory status, no oxygen demands. Discussed with Dr. Cho and reviewed CT scan of this morning, there is no immediate role for cardiothoracic surgery at this point. We'll continue to monitor her progress clinically. Discussed with patient and family, she does not wish to have any thoracic surgical intervention unless absolutely necessary. Problem List: 1. Pneumonia 2. Lung collapse 3. Pleural effusion Copies To: IVAN HER,ROBINA Johnson Consult Acknowledgment - Thank you for your consult request. ROBINA CHO MD 11/19/16 1012: Assessment/Plan Consult Acknowledgment - Thank you for your consult request. Attending MD Review Statement Attending Statement Attending MD Statement: examined this patient, discuss w/resident/PA/TEAM GUIDE, agreed w/resident/PA/TEAM GUIDE Attending Assessment/Plan: Reviewed with Dr. Martinez. Residual pleural process minimal, does not account for infectious findings. No indication for need for pleural intervention.
[2016-11-18 14:48] VITALS: BP 145/80
[2016-11-18 22:07] VITALS: BP 138/70
[2016-11-19 06:45] VITALS: BP 140/74
--- NOTE | 2016-11-19 07:43 | PN- Housestaff ---
Subjective Follow-up For: Pneumonia Empyema Lung collapse Pulmonary nodules Complaints: ORAL THRUSH DIRRHEA Subjective: I have seen and examined the patient. The patient was sitting comfortably in her bed. There were no overnight acute events. She denies any sputum production, cough and shortness of breath. She is afebrile and complains of post nasal drip. She has 2 pigtail catheters. She has had 4 episodes of loose stool and has developed oral thrush. She is becoming impatient and wants to go home soon. She does not complain of chest pain or palpitations. Review of Systems Constitutional: Reports: no symptoms. Cardiovascular: Denies: chest pain, edema, orthopena. Respiratory: Denies: cough, hemoptysis, orthopnea, sputum production, stridor. Gastrointestinal: Reports: diarrhea. Denies: constipation, nausea, vomiting. Genitourinary: Reports: no symptoms. Musculoskeletal: Reports: no symptoms. Skin: Reports: no symptoms. Objective Last 24 Hrs of Vital Signs/I&O Vital Signs Date Time Temp Pulse Resp B/P B/P Pulse O2 O2 Flow FiO2 Mean Ox Delivery Rate 11/19 1429 100.8 11/19 0942 98 142/86 11/19 0941 98 142/86 11/19 0823 96 Room Air Room Air 11/19 0800 97 Room Air 11/19 0645 97.4 80 20 140/74 94 Room Air 11/19 0000 95 Room Air / 2207 99.7 90 18 138/70 95 Room Air / 2201 99.7 / 1930 96 Room Air 11/18 1448 98.7 98 20 145/80 96 Intake & Output 11/19 1600 /04 0800 11/19 0000 Intake Total 230 Output Total 32 Balance 230 -32 Intake, IV 130 Intake, Oral 100 Number 1 Bowel Movements Output, Chest 30 Tube Drainage Output, Stool 2 Physical Exam General Appearance: Alert, Oriented X3, Cooperative, No Acute Distress Skin: No Rashes, No Breakdown HEENT: Atraumatic Cardiovascular: Normal S1, Normal S2, No Murmurs Lungs: Clear to Auscultation, breath sound diminsghed at right base Abdomen: Normal Bowel Sounds, Soft, No Tenderness, No Masses Neurological: Normal Speech Extremities: No Edema Current Medications: Current Medications Sig/Cherry Start time Last Medication Dose Route Stop Time Status Admin Acetaminophen 650 MG Q6P PRN 11/08 2300 AC PO Albuterol Sulfate 3 ML BID 11/09 1137 AC 11/19 INH 0823 Amlodipine Besylate 5 MG DAILY 11/09 1000 AC 11/19 PO 0941 Ampicillin Sodium/ 3,000 MG Q6 11/19 0600 AC 11/19 Sulbactam Sodium IV 1218 Sodium Chloride 100 ML Ampicillin Sodium/ 3,000 MG Q6 11/11 1800 DC 11/18 Sulbactam Sodium IV 1732 Sodium Chloride 100 ML Docusate Sodium 100 MG DAILY NEEDED PRN 11/10 1100 AC 11/10 PO 1424 Guaifenesin 600 MG Q12 11/13 1030 AC 11/19 PO 0941 Guaifenesin/ 10 ML Q6 11/12 1000 AC 11/19 Dextromethorphan PO 1214 Heparin Sodium 5,000 UNIT Q8 11/18 0954 AC 11/19 (Porcine) SC 1428 Ibuprofen 600 MG Q6P PRN 11/08 2300 AC 11/19 PO 1429 Levothyroxine Sodium 0.05 MG DAILY AC 11/09 0700 AC 11/19 PO 0608 Lisinopril 20 MG DAILY 11/18 1000 AC 11/19 PO 0942 Morphine Sulfate 2 MG Q4 HRS NEEDED PRN 11/09 1815 AC 11/11 IV 0143 Nystatin 5 ML 4 TIMES/DAY 11/19 1050 AC 11/19 PO 1428 Polyethylene Glycol 17 GM DAILY PRN 11/10 1100 AC 11/10 PO 1424 Last 24 Hrs of Lab/Javon Results Last 24 Hrs of Labs/Mics: Laboratory Tests 11/19/16 0650: Anion Gap 9, Estimated GFR > 60, BUN/Creatinine Ratio 12.0, CBC w Diff NO MAN DIFF REQ, RBC 4.27, MCV 86.2, MCH 28.3, RDW 13.7, MPV 7.8, Gran % 81.6 H, Lymphocytes % 10.8 L, Monocytes % 6.7, Eosinophils % 0.7, Basophils % 0.2, Absolute Granulocytes 13.6 H, Absolute Lymphocytes 1.8, Absolute Monocytes 1.1 H, Absolute Eosinophils 0.1, Absolute Basophils 0, PUBS MCHC 32.8 L Microbiology 11/19 714 STOOL: Clostridium difficile Toxin A & B - RES 11/19 714 STOOL: Stool Culture - RES 11/18 1741 STOOL: Clostridium difficile Toxin A & B - COLB 11/18 1741 STOOL: Stool Culture - COLB Lines/Diet/Fluids Catheters/Tubes: 2 pigtail catherters Drains Still Needed? Yes Assessment/Plan Assessment: Ms. Haney is 51 year old female presented to ED with chief complaint of right lateral neck and thoracic chest pain for 5 days. PMH significant for hypertension, hypothyroidism, current smoker, right ear nerve deafness, diverticulitis status post colon resection. Patient presented to Hospital with ongoing chest pain, shortness of breath, cough associated with sputum production. Also reported night sweats. Denied any fever or chills. She was afebrile with a WBC count elevated on admission 25 ,000 On admission Vital signs temperature 97.3, pulse 92, blood pressure 161/80, respiratory rate 18 saturating 92%. Pertinent WBC 25.3, H&H 14.8/44.3, platelet 329, sodium 133, potassium 5, BUN/ creatinine 13/0.8, lactic acid 1.2, INR 1.35. Ribs x-ray showed, Low lung volumes with basilar atelectasis with right-sided effusion. No fractures are seen. CT of the chest November 18 reveals no drainable collections, with a decrease in the anterolateral fluid collection, with a small effusion remaining, a small effusion remaining in the posterior chest, near complete collapse/consolidation of the right middle lobe with air bronchograms and mild to moderate collapse of the right lower lobe, with atelectasis/consolidation Multilobar Community-acquired pneumonia/acute hypoxic respiratory insufficiency S/p indwelling pleural catheter - anterior and posterior. She continues to spike fevers * unasyn day 10 for alpha strep and anaerobes * Right upper pleural fluid collection-no growth, Right lower pleural fluid collection-anaerobes and alpha strep * leukocytosis 16.3 * Following ID and Pulm Reccomendations * monitor vitals * Maintain oxygen saturation greater than 90%, supplemental oxygen if necessary * Monitor closely for worsening leukocytosis, fever, shortness of breath * Robutussin with codeine and mucinex for cough * Total respiratory care, Nebulizer and inhaler treatments * Pain management * Blood culture and urine culture were sent yesterday. No growth so far.will follow up Right-sided pleural effusion/ empyema/collapse * Right-sided pleural effusion most likely from pnemonia vs malignancy * thoracocentesis therapeutic and diagnostic, Right lower pleural fluid collection-anaerobes and alpha strep, Pleural fluid cytology, - f/u- NO MALIGNANCY * CT-guided thoracocentesis and right side pigtail catheter placement- 11/11/2016 * status post placement of a second pigtail catheter in the anterior collection 11/15/[address] * monitor output from the pigtail catheters. minimal output * continue unasyn DAY 10 * CT of the chest November 18 reveals no drainable collections, with a decrease in the anterolateral fluid collection, with a small effusion remaining, a small effusion remaining in the posterior chest, near complete collapse/consolidation of the right middle lobe with air bronchograms and mild to moderate collapse of the right lower lobe, with atelectasis/consolidation * She may require decortication * Pulm, ID and thorcic surgery on board * when we decide to remove chest tubes, we will recheck CT Chest WITH contrast as per pulm recss Right lung nodule Indeterminate solitary 6 mm pulmonary nodules, other nodules in the collapsed portions of the right lung are not excluded. Small indeterminate mediastinal nodes. * will need follow up Hypertension Continue home medication of amlodipine 5 mg Continue home medications lisinopril 10 mg Hypothyroidism Continue home medication levothyroxine 50 g daily Smoker Patient continues to smoke half pack every day Smoking cessation provided Nicotine patch Diarrhea Patient had 4 episodes of loose stool. stool culture and c.diff toxin ordered will follow up Oral thrush pt has developed oral thrush likely to antibiotic use nystatin swish and spit for 1 week DVT prophylaxis alps heparin Full code Pain pathway Tylenol Motrin and morphine Heart healthy diet Problem List: 1. Pneumonia 2. Lung collapse 3. Pleural effusion Pain Ratin Pain Location: mid back right side Pain Goal: Pain 4 or less Pain Plan: Tylenol Motrin and morphine Tomorrow's Labs & Rationales: cbc bep Consulting Request: Consulting Specialty: Infectious Disease (pulm)
[2016-11-19 08:11] LABS: ABSOLUTE BASOPHIL COUNT 0 /CUMM (0.0-0.2); ABSOLUTE EOSINOPHIL COUNT 0.1 /CUMM (0.0-0.7); ABSOLUTE GRANULOCYTE CT 13.6 /CUMM (1.4-6.5); ABSOLUTE LYMPH COUNT 1.8 /CUMM (1.2-3.4); ABSOLUTE MONOCYTE COUNT 1.1 /CUMM (0.10-0.60); BASOPHIL % 0.2 % (0.0-2.0); EOSINOPHIL % 0.7 % (0-5); GRANULOCYTE % 81.6 % (42.2-75.2); HEMATOCRIT 36.8 % (37-47); MEAN CORPUSCULAR HGB 28.3 PG (27.0-31.0); MEAN CORPUSCULAR HGB CONC 32.8 G/DL (33.0-37.0); MEAN CORPUSCULAR VOLUME 86.2 FL (81.0-99.0); MEAN PLATELET VOLUME 7.8 FL (7.4-10.4); PLATELET COUNT 581 /CUMM (130-400); RBC DISTRIBUTION WIDTH 13.7 % (11.5-14.5); RED BLOOD CELL CT 4.27 /CUMM (4.20-5.40); WHITE BLOOD CELL COUNT 16.7 /CUMM (4.8-10.8)
--- NOTE | 2016-11-19 11:11 | PN- Pulmonary ---
Subjective HPI/Critical Care Issues: pt seen and examined reviewed overnight events fevers subsided since yesterday wbc is 16.[address] reviewed Objective Current Medications: Current Medications Sig/Cherry Start time Last Medication Dose Route Stop Time Status Admin Acetaminophen 650 MG .STK-MED ONE 11/18 1145 DC PO 11/18 1146 Acetaminophen 650 MG Q6P PRN 11/08 2300 AC PO Albuterol Sulfate 3 ML BID 11/09 1137 AC 11/19 INH 0823 Amlodipine Besylate 5 MG DAILY 11/09 1000 AC 11/19 PO 0941 Ampicillin Sodium/ 3,000 MG Q6 11/19 0600 AC 11/19 Sulbactam Sodium IV 0607 Sodium Chloride 100 ML Ampicillin Sodium/ 3,000 MG Q6 11/11 1800 DC 11/18 Sulbactam Sodium IV 1732 Sodium Chloride 100 ML Docusate Sodium 100 MG DAILY NEEDED PRN 11/10 1100 AC 11/10 PO 1424 Guaifenesin 600 MG Q12 11/13 1030 AC 11/19 PO 0941 Guaifenesin/ 10 ML Q6 11/12 1000 AC 11/19 Dextromethorphan PO 0607 Heparin Sodium 5,000 UNIT Q8 11/18 0954 AC 11/19 (Porcine) SC 0608 Ibuprofen 600 MG Q6P PRN 11/08 2300 AC 11/18 PO 2201 Levothyroxine Sodium 0.05 MG DAILY AC 11/09 0700 AC 11/19 PO 0608 Lisinopril 20 MG DAILY 11/18 1000 AC 11/19 PO 0942 Morphine Sulfate 2 MG Q4 HRS NEEDED PRN 11/09 1815 AC 11/11 IV 0143 Nystatin 5 ML 4 TIMES/DAY 11/19 1050 AC PO Polyethylene Glycol 17 GM DAILY PRN 11/10 1100 AC 11/10 PO 1424 Vital Signs & I&O Last 24 Hrs of Vitals and I&O: Vital Signs Date Time Temp Pulse Resp B/P B/P Pulse O2 O2 Flow FiO2 Mean Ox Delivery Rate 11/19 0942 98 142/86 11/19 0941 98 142/86 11/19 0823 96 Room Air Room Air 11/19 0645 97.4 80 20 140/74 94 Room Air / 0000 95 Room Air 11/18 2207 99.7 90 18 138/70 95 Room Air 11/18 2201 99.7 11/18 1930 96 Room Air 11/18 1448 98.7 98 20 145/80 96 11/18 1255 98.9 11/18 1158 101.1 Intake & Output 11/19 1600 11/19 0800 11/19 0000 Intake Total 230 Output Total 32 Balance 230 -32 Intake, IV 130 Intake, Oral 100 Number 1 Bowel Movements Output, Chest 30 Tube Drainage Output, Stool 2 Exam Other Physical Findings: gen awake and alert heent oral thrush, cheeks, palate and tongue cvs s1, s2 lungs diminished at bases, rare rhonchi abd without tenderness ext without edema Results Last 24 Hrs of Lab Results: Laboratory Tests 11/19/16 0650: Anion Gap 9, Estimated GFR > 60, BUN/Creatinine Ratio 12.0, CBC w Diff NO MAN DIFF REQ, RBC 4.27, MCV 86.2, MCH 28.3, RDW 13.7, MPV 7.8, Gran % 81.6 H, Lymphocytes % 10.8 L, Monocytes % 6.7, Eosinophils % 0.7, Basophils % 0.2, Absolute Granulocytes 13.6 H, Absolute Lymphocytes 1.8, Absolute Monocytes 1.1 H, Absolute Eosinophils 0.1, Absolute Basophils 0, PUBS MCHC 32.8 L Impression/Plan Impression/Plan Impression/Plan: Impression 51 year old woman * empyema * CT chest with residual pleural fluid Plan -both indwelling pleural catheters reviewed, minimal output over 24 hours -cont ID follow up/abx -CT surgery appreciated -in discussion with all specialists, prior to chest tube removal would recommend to recheck CT Chest, however WITH contrast if CT surgery and ID agree -in meantime f/u c.diff -nystatin swish and spit for 1 week (d/w housestaff) DVT prophylaxis at all times
--- NOTE | 2016-11-19 14:48 | PN- Att Addend ---
Attending MD Review Statement Attending Statement Attending MD Statement: examined this patient, discuss w/resident/PA/ENVIRONMENTAL SERVICE AIDE, agreed w/resident/PA/ENVIRONMENTAL SERVICE AIDE, discussed with family, reviewed EMR data (avail), discussed w/ nursing Attending Assessment/Plan: Laboratory Tests 11/19/16 0650: Anion Gap 9, Estimated GFR > 60, BUN/Creatinine Ratio 12.0, CBC w Diff NO MAN DIFF REQ, RBC 4.27, MCV 86.2, MCH 28.3, RDW 13.7, MPV 7.8, Gran % 81.6 H, Lymphocytes % 10.8 L, Monocytes % 6.7, Eosinophils % 0.7, Basophils % 0.2, Absolute Granulocytes 13.6 H, Absolute Lymphocytes 1.8, Absolute Monocytes 1.1 H, Absolute Eosinophils 0.1, Absolute Basophils 0, PUBS MCHC 32.8 L Vital Signs Date Time Temp Pulse Resp B/P B/P Pulse O2 O2 Flow FiO2 Mean Ox Delivery Rate 11/19 1429 100.8 11/19 0942 98 142/86 11/19 0941 98 142/86 11/19 0823 96 Room Air Room Air 11/19 0800 97 Room Air 11/19 0645 97.4 80 20 140/74 94 Room Air 07/ 0000 95 Room Air / 2207 99.7 90 18 138/70 95 Room Air / 2201 99.7 / 1930 96 Room Air / 1448 98.7 98 20 145/80 96 empyema s/p drainage with 2 pigtail catheters. con on iv unasyn. Alpha strep on cultures. wbc stable but still persistent leukocytosis. continues to have fever on and off, cont pigtail, pulmonary following. Repeat CT chest tomorrow with iv contrast to evaluate for improvement. d/w pulmonary dr woo.
[2016-11-19 15:22] VITALS: BP 148/80
[2016-11-19 22:31] VITALS: BP 140/70
[2016-11-20 06:21] VITALS: BP 136/80
[2016-11-20 09:36] VITALS: BP 130/80
[2016-11-20 09:38] LABS: ABSOLUTE BASOPHIL COUNT 0 /CUMM (0.0-0.2); ABSOLUTE EOSINOPHIL COUNT 0.1 /CUMM (0.0-0.7); ABSOLUTE GRANULOCYTE CT 12.2 /CUMM (1.4-6.5); ABSOLUTE LYMPH COUNT 1.8 /CUMM (1.2-3.4); ABSOLUTE MONOCYTE COUNT 0.9 /CUMM (0.10-0.60); BASOPHIL % 0.1 % (0.0-2.0); EOSINOPHIL % 0.5 % (0-5); GRANULOCYTE % 81.2 % (42.2-75.2); HEMATOCRIT 38.1 % (37-47); MEAN CORPUSCULAR HGB CONC 32.4 G/DL (33.0-37.0); MEAN CORPUSCULAR VOLUME 86.4 FL (81.0-99.0); MEAN PLATELET VOLUME 7.6 FL (7.4-10.4); PLATELET COUNT 697 /CUMM (130-400); RED BLOOD CELL CT 4.41 /CUMM (4.20-5.40)
--- NOTE | 2016-11-20 10:44 | PN- Pulmonary ---
Subjective HPI/Critical Care Issues: pt seen and examined wbc 15 afebrile drainage has ceased Objective Current Medications: Current Medications Sig/Cherry Start time Last Medication Dose Route Stop Time Status Admin Acetaminophen 650 MG Q6P PRN 11/08 2300 AC PO Albuterol Sulfate 3 ML BID 11/09 1137 AC 11/20 INH 0842 Amlodipine Besylate 5 MG DAILY 11/09 1000 AC 11/20 PO 0935 Ampicillin Sodium/ 3,000 MG Q6 11/19 0600 AC 11/20 Sulbactam Sodium IV 0539 Sodium Chloride 100 ML Docusate Sodium 100 MG DAILY NEEDED PRN 11/10 1100 AC 11/10 PO 1424 Guaifenesin 600 MG Q12 11/13 1030 AC 11/20 PO 0936 Guaifenesin/ 10 ML Q6 11/12 1000 AC 11/20 Dextromethorphan PO 0539 Heparin Sodium 5,000 UNIT Q8 11/18 0954 AC 11/20 (Porcine) SC 0538 Ibuprofen 800 MG .STK-MED ONE 11/19 1426 DC PO 11/19 1427 Ibuprofen 600 MG Q6P PRN 11/08 2300 AC 11/20 PO 0047 Levothyroxine Sodium 0.05 MG DAILY AC 11/09 0700 AC 11/20 PO 0539 Lisinopril 20 MG DAILY 11/18 1000 AC 11/20 PO 0935 Morphine Sulfate 2 MG Q4 HRS NEEDED PRN 11/09 1815 AC 11/11 IV 0143 Nystatin 5 ML 4 TIMES/DAY 11/19 1050 AC 11/20 PO 0935 Polyethylene Glycol 17 GM DAILY PRN 11/10 1100 AC 11/10 PO 1424 Vital Signs & I&O Last 24 Hrs of Vitals and I&O: Vital Signs Date Time Temp Pulse Resp B/P B/P Pulse O2 O2 Flow FiO2 Mean Ox Delivery Rate 11/20 0936 99.0 88 130/80 / 0935 88 130/80 / 0935 18 130/80 07/ 0850 96 Room Air / 0800 Room Air / 0621 98.7 82 18 136/80 95 Room Air / 2231 99.4 94 20 140/70 94 Room Air 11/19 2231 95 Room Air / 1643 98.2 07/ 1522 100.8 115 20 148/80 93 Room Air 11/19 1429 100.8 Intake & Output 11/20 1600 11/20 0800 11/20 0000 Intake Total Output Total 625 20 Balance -625 -20 Output, Chest 0 Tube Drainage Output, 20 Drainage Output, Urine 625 Exam Other Physical Findings: gen awake and alert heent oral thrush, cheeks, palate and tongue cvs s1, s2 lungs diminished at bases, rare rhonchi abd without tenderness ext without edema Results Last 24 Hrs of Lab Results: Laboratory Tests 11/20/16 0900: Anion Gap 9, Estimated GFR > 60, BUN/Creatinine Ratio 20.0, CBC w Diff NO MAN DIFF REQ, RBC 4.41, MCV 86.4, MCH 28.0, RDW 14.0, MPV 7.6, Gran % 81.2 H, Lymphocytes % 12.2 L, Monocytes % 6.0, Eosinophils % 0.5, Basophils % 0.1, Absolute Granulocytes 12.2 H, Absolute Lymphocytes 1.8, Absolute Monocytes 0.9 H, Absolute Eosinophils 0.1, Absolute Basophils 0, PUBS MCHC 32.4 L Impression/Plan Impression/Plan Impression/Plan: Impression 51 year old woman * empyema * CT chest with residual pleural fluid * oral thrush Plan -both indwelling pleural catheters reviewed, no further output -cont ID follow up/abx -CT surgery appreciated -prior to chest tube removal would recommend to recheck CT Chest WITH contrast -nystatin swish and spit for 1 week (d/w housesta) DVT prophylaxis at all times
--- NOTE | 2016-11-20 11:04 | PN- Housestaff ---
NATA HER,[facility] 11/20/16 1104: Subjective Follow-up For: Pneumonia Empyema Lung collapse Pulmonary nodule Complaints: no complaints Subjective: I have seen and examined the patient. She is resting comfortably in her bed. She has 2 pigtail catheters. Her symptoms are dyspnea on sputum and cough have been improved. There were no acute overnight events. She has been doing incentive spirometry exercises. She wants the catheters to be removed soon. Review of Systems Constitutional: Reports: no symptoms. Cardiovascular: Denies: chest pain, edema, palpitations. Respiratory: Denies: cough, hemoptysis, short of breath, sputum production. Gastrointestinal: Denies: constipation, bowel incontinence, nausea. Genitourinary: Reports: no symptoms. Musculoskeletal: Reports: no symptoms. Skin: Reports: no symptoms. Objective Last 24 Hrs of Vital Signs/I&O Vital Signs Date Time Temp Pulse Resp B/P B/P Pulse O2 O2 Flow FiO2 Mean Ox Delivery Rate 11/20 1441 98.5 101 18 120/70 94 Room Air / 0936 99.0 88 130/80 / 0935 88 130/80 07/05 0935 18 130/80 07/05 0850 96 Room Air 07/05 0800 Room Air 07/05 0621 98.7 82 18 136/80 95 Room Air 07/04 2231 99.4 94 20 140/70 94 Room Air 07/04 2231 95 Room Air 07/04 1643 98.2 07/ 1522 100.8 115 20 148/80 93 Room Air Intake & Output / 1600 07/05 0800 07/05 0000 Intake Total 600 Output Total 625 20 Balance 600 -625 -20 Intake, Oral 600 Output, Chest 0 Tube Drainage Output, 20 Drainage Output, Urine 625 Physical Exam General Appearance: Alert, Oriented X3, Cooperative, No Acute Distress Skin: No Rashes, No Breakdown Skin Temp/Moisture Exam: Warm/Dry HEENT: Atraumatic Cardiovascular: Normal S1, Normal S2, No Murmurs Lungs: CLear to Auscultation, breath sound diminsghed at right base Abdomen: Soft, No Tenderness, No Masses Neurological: Normal Speech Current Medications: Current Medications Sig/Cherry Start time Last Medication Dose Route Stop Time Status Admin Acetaminophen 650 MG Q6P PRN 11/08 2300 AC PO Albuterol Sulfate 3 ML BID 11/09 1137 AC 11/20 INH 0842 Amlodipine Besylate 5 MG DAILY 11/09 1000 AC 11/20 PO 0935 Ampicillin Sodium/ 3,000 MG Q6 11/19 0600 AC 11/20 Sulbactam Sodium IV 1236 Sodium Chloride 100 ML Docusate Sodium 100 MG DAILY NEEDED PRN 11/10 1100 AC 11/10 PO 1424 Guaifenesin 600 MG Q12 11/13 1030 AC 11/20 PO 0936 Guaifenesin/ 10 ML Q6 11/12 1000 AC 11/20 Dextromethorphan PO 1236 Heparin Sodium 5,000 UNIT Q8 11/18 0954 AC 11/20 (Porcine) SC 1332 Ibuprofen 600 MG Q6P PRN 11/08 2300 AC 11/20 PO 1241 Levothyroxine Sodium 0.05 MG DAILY AC 11/09 0700 AC 11/20 PO 0539 Lisinopril 20 MG DAILY 11/18 1000 AC 11/20 PO 0935 Morphine Sulfate 2 MG Q4 HRS NEEDED PRN 11/09 1815 AC 11/11 IV 0143 Nystatin 5 ML 4 TIMES/DAY 11/19 1050 AC 11/20 PO 1332 Polyethylene Glycol 17 GM DAILY PRN 11/10 1100 AC 11/10 PO 1424 Last 24 Hrs of Lab/Javon Results Last 24 Hrs of Labs/Mics: Laboratory Tests 11/20/16 0900: Anion Gap 9, Estimated GFR > 60, BUN/Creatinine Ratio 20.0, CBC w Diff NO MAN DIFF REQ, RBC 4.41, MCV 86.4, MCH 28.0, RDW 14.0, MPV 7.6, Gran % 81.2 H, Lymphocytes % 12.2 L, Monocytes % 6.0, Eosinophils % 0.5, Basophils % 0.1, Absolute Granulocytes 12.2 H, Absolute Lymphocytes 1.8, Absolute Monocytes 0.9 H, Absolute Eosinophils 0.1, Absolute Basophils 0, PUBS MCHC 32.4 L Lines/Diet/Fluids Catheters/Tubes: 2 PIGTAIL CATHETERS WITH MINIMAL OUTPUT Assessment/Plan Assessment: Ms. Haney is 51 year old female presented to ED with chief complaint of right lateral neck and thoracic chest pain for 5 days. PMH significant for hypertension, hypothyroidism, current smoker, right ear nerve deafness, diverticulitis status post colon resection. Patient presented to Hospital with ongoing chest pain, shortness of breath, cough associated with sputum production. Also reported night sweats. Denied any fever or chills. She was afebrile with a WBC count elevated on admission 25 ,000 Ribs x-ray showed, Low lung volumes with basilar atelectasis with right-sided effusion. No fractures are seen. CT on admission 11/08 1. Right-sided pleural effusion with near-complete right lower lobe collapse. Moderate right middle lobe collapse, and mild right upper lobe collapse. Effusion is indeterminate in etiology. 2. Indeterminate solitary 6 mm pulmonary nodules, other nodules in the collapsed portions of the right lung are not excluded. 3. Small indeterminate mediastinal nodes. -CT-guided thoracocentesis and right side pigtail catheter placement- 11/11/2016 -status post placement of a second pigtail catheter in the anterior collection following CTscan -Right lower pleural fluid collection-anaerobes and alpha strep, Pleural fluid cytology, - f/u- NO MALIGNANCY CT of the chest November 22 1. The empyema is not significantly changed in appearance compared to 11/18/2016. The pigtail drainage catheters remain in satisfactory position. 2. Persistent compressive atelectasis and/or consolidation in the right middle and lower lobes, similar in appearance compared to 11/18/2016. 3. The mediastinal and right hilar lymphadenopathy is unchanged, likely reactive to the pulmonary/pleural disease. 4. There are a few new patchy groundglass opacities in the left upper lobe from new pneumonitis and/or atelectasis. Multilobar Community-acquired pneumonia/acute hypoxic respiratory insufficiency S/p indwelling 2 pleural catheter - anterior and posterior. * unasyn day 11 for alpha strep and anaerobes * leukocytosis 15.0 * Following ID and Pulm Reccomendations * Maintain oxygen saturation greater than 90%, supplemental oxygen if necessary * Monitor closely for worsening leukocytosis, fever, shortness of breath * Robutussin with codeine and mucinex for cough * Total respiratory care, Nebulizer and inhaler treatments * Pain management * Blood culture and urine culture were sent 11/18. No growth so far.will follow up Right-sided pleural effusion/ empyema/collapse * Right-sided pleural effusion most likely from pnemonia. Malignancy ruled out * monitor output from the pigtail catheters. minimal output * continue unasyn DAY 11 * Pulm, ID and thorcic surgery on board * PLanning on removing the tubes today awaiting cardiothoracic surgery reccs Right lung nodule Indeterminate solitary 6 mm pulmonary nodules, other nodules in the collapsed portions of the right lung are not excluded. Small indeterminate mediastinal nodes. * will need follow up Oral thrush pt has developed oral thrush likely to antibiotic use nystatin swish and spit for 1 week Diarrhea Patient had 4 episodes of loose stool yesterday. Pt states it is better today stool culture and c.diff toxin NEGATIVE Hypertension Continue home medication of amlodipine 5 mg Continue home medications lisinopril 10 mg Hypothyroidism Continue home medication levothyroxine 50 g daily Smoker Patient continues to smoke half pack every day Smoking cessation provided Nicotine patch DVT prophylaxis alps heparin Full code Pain pathway Tylenol Motrin and morphine Heart healthy diet Problem List: 1. Pneumonia 2. Lung collapse 3. Pleural effusion Pain Ratin Pain Location: lower mid back Pain Goal: Pain 4 or less Pain Plan: motrin Tomorrow's Labs & Rationales: cbc bep DVT/Prophylaxis: mechanical, pharmacological Consulting Request: Consulting Specialty: Infectious Disease (pulm) JUL[facility] 11/20/16 1234: Attending MD Review Statement Attending Statement Attending MD Statement: examined this patient, discuss w/resident/PA/VICE PRESIDENT OF CONSULTING SERVICES, agreed w/resident/PA/VICE PRESIDENT OF CONSULTING SERVICES, reviewed EMR data (avail), discussed with nursing, discussed with case mgmt, reviewed images, amended to note Attending Assessment/Plan: Patient seen and examined, feeling overall much better. She denies any further back pain or shortness of breath. Patient is scheduled to have a CT chest done and then the chest tubes likely will come out afterwards. Vital Signs Date Time Temp Pulse Resp B/P B/P Pulse O2 O2 Flow FiO2 Mean Ox Delivery Rate 11/20 0836 99.0 88 130/80 / 0935 88 130/80 11/20 0935 18 130/80 / 0850 96 Room Air 11/20 0800 Room Air 11/20 0621 98.7 82 18 136/80 95 Room Air 11/19 2231 99.4 94 20 140/70 94 Room Air 11/19 2231 95 Room Air 11/19 1643 98.2 11/19 1522 100.8 115 20 148/80 93 Room Air 11/19 1429 100.8 on exam; aox3, nad. cv; s1, s2, rrr resp; clear abd; soft, nt, bs+ ext; no edema. Laboratory Tests 07/05 0900 Chemistry Sodium (137 - 145 mmol/L) 140 Potassium (3.5 - 5.1 mmol/L) 4.7 Chloride (98 - 107 mmol/L) 103 Carbon Dioxide (22 - 30 mmol/L) 28 Anion Gap (5 - 16) 9 BUN (7 - 17 mg/dL) 10 Creatinine (0.5 - 1.0 mg/dL) 0.5 Estimated GFR (>60 ml/min) > 60 BUN/Creatinine Ratio (7 - 25 %) 20.0 Hematology CBC w Diff NO MAN DIFF REQ WBC (4.8 - 10.8 /CUMM) 15.0 H RBC (4.20 - 5.40 /CUMM) 4.41 Hgb (12.0 - 16.0 G/DL) 12.3 Hct (37 - 47 %) 38.1 MCV (81.0 - 99.0 FL) 86.4 MCH (27.0 - 31.0 PG) 28.0 RDW (11.5 - 14.5 %) 14.0 Plt Count (130 - 400 /CUMM) 697 H MPV (7.4 - 10.4 FL) 7.6 Gran % (42.2 - 75.2 %) 81.2 H Lymphocytes % (20.5 - 51.1 %) 12.2 L Monocytes % (1.7 - 9.3 %) 6.0 Eosinophils % (0 - 5 %) 0.5 Basophils % (0.0 - 2.0 %) 0.1 Absolute Granulocytes (1.4 - 6.5 /CUMM) 12.2 H Absolute Lymphocytes (1.2 - 3.4 /CUMM) 1.8 Absolute Monocytes (0.10 - 0.60 /CUMM) 0.9 H Absolute Eosinophils (0.0 - 0.7 /CUMM) 0.1 Absolute Basophils (0.0 - 0.2 /CUMM) 0 PUBS MCHC (33.0 - 37.0 G/DL) 32.4 L A/P; 51 y/o F with pmh sig for hypertension, hypothyroidism, current smoker, right ear nerve deafness, diverticulitis status post colon resection admitted with the back pain and shortness of breath and found to have empyema. Status post chest tube placement 2. Had been kept on Unasyn. We'll still spiking low -grade temps up until yesterday. Today she scheduled to have a repeat chest CT done with IV contrast. Afterwards most likely her chest tubes will be taken out. Please discuss with infectious disease about continued fever spikes. Once the chest tubes are out and patient does not spike any further fever, likely she can be discharged home tomorrow. There is slight improvement in her leukocytosis today. Had been seen by cardiothoracic surgery and no interventions were recommended. Patient was encouraged to ambulate and use incentive spirometry. Her diarrhea has improved. DVT prophylaxis: Heparin subcutaneous.
--- NOTE | 2016-11-20 12:04 | CT SCAN REPORT ---
EXAMINATION: CT CHEST WITH CONTRAST CLINICAL INFORMATION: Follow-up pleural fluid collection prior to chest tube removal. COMPARISON: None TECHNIQUE: Multidetector volumetric CT imaging of the chest was obtained after the administration of 95 mL of Optiray 320 intravenous contrast without immediate adverse reactions. Axial MIP volume rendering provided. Sagittal and coronal reformatted images were obtained. DLP: 503 mGy-cm FINDINGS: LUNGS AND PLEURA: Small loculated right pleural effusion surrounded by thickened visceral and parietal pleura is unchanged compared to 11/18/2016. Percutaneously placed pigtail drainage catheters are present within the collection. The posterior catheter is located in the posterior pleural space of the inferior third of the right hemithorax. The anterior catheter is located in the anterolateral pleural space of the lower third of the right hemithorax. The loculated pleural fluid in the mid chest, anteriorly, measures approximately 1.6 cm AP (measured on image 184, series 4), compared to 1.5 cm on 11/18/2016. Multiple gas bubbles are present within the loculated pleural spaces. Deep to the pleural effusion, there is persistent compressive atelectasis and/or consolidation within right upper, middle and lower lobes. There are few new patchy areas of groundglass opacity in the periphery of the left upper lobe (images 113 and 178, series 4). A stable 0.4 cm nodular opacity is present within the left upper lobe (image 180, series 4). Calcified granuloma is present in the right upper lobe. MEDIASTINUM: The heart size is normal. Pulmonary arteries and thoracic aorta are normal in caliber. No pericardial effusion. The esophagus is unremarkable. The visualized portion of the thyroid gland is normal. LYMPHATICS: No axillary lymphadenopathy. No interval change in the right hilar and mediastinal lymphadenopathy. UPPER ABDOMEN: Adrenal glands are normal. No acute findings in the visualized upper abdomen. OSSEOUS STRUCTURES: No suspicious osseous lesions. No acute findings within the degenerated thoracic spine. The lower cervical spine fusion hardware is partially included in the [id number]. IMPRESSION: 1. The empyema is not significantly changed in appearance compared to 11/18/2016. The pigtail drainage catheters remain in satisfactory position. 2. Persistent compressive atelectasis and/or consolidation in the right middle and lower lobes, similar in appearance compared to 11/18/2016. 3. The mediastinal and right hilar lymphadenopathy is unchanged, likely reactive to the pulmonary/pleural disease. 4. There are a few new patchy groundglass opacities in the left upper lobe from new pneumonitis and/or atelectasis.
[2016-11-20 14:41] VITALS: BP 120/70
--- NOTE | 2016-11-20 18:10 | PN- Infect Dx ---
Subjective Subjective: MAXIMUM TEMPERATURE 100.8. She notes some right mid back discomfort but otherwise feels well. Objective Last 24 Hrs of Vital Signs/I&O Vital Signs Date Time Temp Pulse Resp B/P B/P Pulse O2 O2 Flow FiO2 Mean Ox Delivery Rate 11/21 1599 Room Air 11/20 1441 98.5 101 18 120/70 94 Room Air / 0936 99.0 88 130/80 07/05 0935 88 130/80 07/ 0935 18 130/80 / 0850 96 Room Air / 0800 Room Air / 0621 98.7 82 18 136/80 95 Room Air / 2231 99.4 94 20 140/70 94 Room Air / 2231 95 Room Air Intake & Output 11/20 1600 11/20 0800 11/20 0000 Intake Total 600 Output Total 625 20 Balance 600 -625 -20 Intake, Oral 600 Output, Chest 0 Tube Drainage Output, 20 Drainage Output, Urine 625 Physical Exam Other Physical Findings: She appears comfortable in no acute distress Lungs are clear Chest minimal drainage from both right pigtail catheters over the last 36 hours Results Last 24 Hours of Lab Results: Laboratory Tests 11/20 0900 Chemistry Sodium (137 - 145 mmol/L) 140 Potassium (3.5 - 5.1 mmol/L) 4.7 Chloride (98 - 107 mmol/L) 103 Carbon Dioxide (22 - 30 mmol/L) 28 Anion Gap (5 - 16) 9 BUN (7 - 17 mg/dL) 10 Creatinine (0.5 - 1.0 mg/dL) 0.5 Estimated GFR (>60 ml/min) > 60 BUN/Creatinine Ratio (7 - 25 %) 20.0 Hematology CBC w Diff NO MAN DIFF REQ WBC (4.8 - 10.8 /CUMM) 15.0 H RBC (4.20 - 5.40 /CUMM) 4.41 Hgb (12.0 - 16.0 G/DL) 12.3 Hct (37 - 47 %) 38.1 MCV (81.0 - 99.0 FL) 86.4 MCH (27.0 - 31.0 PG) 28.0 RDW (11.5 - 14.5 %) 14.0 Plt Count (130 - 400 /CUMM) 697 H MPV (7.4 - 10.4 FL) 7.6 Gran % (42.2 - 75.2 %) 81.2 H Lymphocytes % (20.5 - 51.1 %) 12.2 L Monocytes % (1.7 - 9.3 %) 6.0 Eosinophils % (0 - 5 %) 0.5 Basophils % (0.0 - 2.0 %) 0.1 Absolute Granulocytes (1.4 - 6.5 /CUMM) 12.2 H Absolute Lymphocytes (1.2 - 3.4 /CUMM) 1.8 Absolute Monocytes (0.10 - 0.60 /CUMM) 0.9 H Absolute Eosinophils (0.0 - 0.7 /CUMM) 0.1 Absolute Basophils (0.0 - 0.2 /CUMM) 0 PUBS MCHC (33.0 - 37.0 G/DL) 32.4 L Last 24 Hours of Javon Results: Stool C. difficile November 19 negative Blood cultures November 17 negative Urine culture November 17 negative Recent Imaging Studies: CT of the chest November 20 no significant change in the appearance compared to the previous study 2 days ago, with a small loculated right pleural effusion; pigtail drainage catheters remain in satisfactory position; persistent compressive atelectasis and/or consolidation in the right middle and lower lobes Assessment/Plan Impression: Clinically stable though she continues to have low-grade fevers and white blood cell count remains elevated with repeat CT of the chest today unchanged from the previous study. She has minimal drainage from the catheters and, therefore, there is not felt to be any role for lytics, and it is likely these catheters can be removed if drainage remains minimal. She has been evaluated by Thoracic surgery, with no plans for "pleural intervention". She remains on Unasyn Day 9 of treatment for alpha strep and anaerobes isolated from the initial thoracentesis. Suggestion: 1. Further management of her pigtail catheters per Pulmonary and Thoracic surgery 2. Continue Unasyn
--- NOTE | 2016-11-20 19:55 | NUR ---
PT LEFT FLOOR VIA STRETCHER FOR CT SCAN AT 1055, PT RETURNED VIA STRECHER FROM CT SCAN AT 1130. PT QUESTIONING WHETHER OR NOT CHEST TUBES WILL BE REMOVED TODAY. TIRE CORD WEAVER PAGED AND AT BEDSIDE TO UPDATE PT ON POC. PER TI[employer] WEAVER, CARDIOTHORACIC SURGERY MUST SEE PT AND REMOVAL WILL BE DONE IN IR. BOTH CHEST TUBES HAD NO DRAINAGE FOR THIS RN. R SIDE OF LUNGS DIMINISHED, L SIDE OF LUNGS CLEAR. PT HAS NO SOB. REMAINS ON RA. PT AGREEABLE TO POC. REPORT PASSED TO NEXT SHIFT RN.
[2016-11-20 22:31] VITALS: BP 148/60
[2016-11-21 06:38] VITALS: BP 136/74
--- NOTE | 2016-11-21 07:04 | PN- Housestaff ---
See Addendum Subjective Follow-up For: Pneumonia Empyema Lung collapse Pulmonary nodule Complaints: no complaints Subjective: I have seen and examined the patient. Her MAXIMUM TEMPERATURE has been 99. She seems pretty frustrated. She wants to know when her pigtail catheters were taken out. She does not have any shortness of breath sputum production or or any other respiratory complaints. Her diarrhea better. Her oral thrush results improved. She wants to be discharged soon. we arer waiting on clearence from cardiothorac surgery Review of Systems Constitutional: Denies: chills, diaphoresis, fever. Cardiovascular: Denies: chest pain, orthopena, palpitations. Respiratory: Denies: cough, orthopnea, short of breath, sputum production, stridor, wheezing. Gastrointestinal: Denies: abdominal pain, constipation, diarrhea, nausea, vomiting. Genitourinary: Reports: no symptoms. Musculoskeletal: Reports: no symptoms. Neurological/Psychological: Reports: no symptoms. Objective Last 24 Hrs of Vital Signs/I&O Vital Signs Date Time Temp Pulse Resp B/P B/P Pulse O2 O2 Flow FiO2 Mean Ox Delivery Rate 11/21 0837 97 Room Air Room Air 11/21 0638 98.0 80 18 136/74 96 Room Air / 0000 Room Air / 2231 98.8 93 19 148/60 94 Room Air / 2125 95 Room Air / 1600 Room Air 07/05 1441 98.5 101 18 120/70 94 Room Air 07/05 0936 99.0 88 130/80 07/05 0935 88 130/80 07/05 0935 18 130/80 07/05 0850 96 Room Air Intake & Output 11/21 1600 /06 0800 07/06 0000 Intake Total 630 390 Output Total 800 300 Balance -170 90 Intake, IV 150 150 Intake, Oral 480 240 Output, Urine 800 300 Physical Exam General Appearance: Alert, Oriented X3, Cooperative, No Acute Distress Skin: No Rashes, No Breakdown Skin Temp/Moisture Exam: Warm/Dry HEENT: oral thrush improving with nyastatin Neck: Supple Cardiovascular: Normal S1, Normal S2, No Murmurs Lungs: breath sound diminshed at right base, 2 pigtail cathers, no swelling or erythema Abdomen: Normal Bowel Sounds, Soft, No Tenderness Neurological: Normal Speech Extremities: No Tenderness/Swelling Current Medications: Current Medications Sig/Cherry Start time Last Medication Dose Route Stop Time Status Admin Acetaminophen 650 MG Q6P PRN 11/08 2300 AC PO Albuterol Sulfate 3 ML BID 11/09 1137 AC 11/21 INH 0835 Amlodipine Besylate 5 MG DAILY 11/09 1000 AC 11/20 PO 0935 Ampicillin Sodium/ 3,000 MG Q6 11/19 0600 AC 11/21 Sulbactam Sodium IV 0630 Sodium Chloride 100 ML Docusate Sodium 100 MG DAILY NEEDED PRN 11/10 1100 AC 11/10 PO 1424 Guaifenesin 600 MG Q12 11/13 1030 AC 11/20 PO 2201 Guaifenesin/ 10 ML Q6 11/12 1000 AC 11/21 Dextromethorphan PO 0630 Heparin Sodium 5,000 UNIT Q8 11/18 0954 AC 11/21 (Porcine) SC 0630 Ibuprofen 600 MG .STK-MED ONE 11/20 1241 DC PO 11/20 1242 Ibuprofen 600 MG Q6P PRN 11/08 2300 AC 11/20 PO 2327 Levothyroxine Sodium 0.05 MG DAILY AC 11/09 0700 AC 11/21 PO 0630 Lisinopril 20 MG DAILY 11/18 1000 AC 11/20 PO 0935 Morphine Sulfate 2 MG Q4 HRS NEEDED PRN 11/09 1815 AC 11/11 IV 0143 Nystatin 5 ML 4 TIMES/DAY 11/19 1050 AC 11/20 PO 2201 Polyethylene Glycol 17 GM DAILY PRN 11/10 1100 AC 11/10 PO 1424 Last 24 Hrs of Lab/Javon Results Last 24 Hrs of Labs/Mics: Laboratory Tests 11/21/16 0738: Anion Gap 9, Estimated GFR > 60, BUN/Creatinine Ratio 16.7, CBC w Diff NO MAN DIFF REQ, RBC 4.27, MCV 85.3, MCH 28.4, RDW 13.8, MPV 7.7, Gran % 75.8 H, Lymphocytes % 15.8 L, Monocytes % 7.0, Eosinophils % 1.1, Basophils % 0.3, Absolute Granulocytes 9.8 H, Absolute Lymphocytes 2.0, Absolute Monocytes 0.9 H, Absolute Eosinophils 0.1, Absolute Basophils 0, PUBS MCHC 33.2 Lines/Diet/Fluids Catheters/Tubes: 2 pigtail cathers ant and post right side Assessment/Plan Assessment: Ms. Lyndon is 51 year old female presented to ED with chief complaint of right lateral neck and thoracic chest pain for 5 days. PMH significant for hypertension, hypothyroidism, current smoker, right ear nerve deafness, diverticulitis status post colon resection. Patient presented to Hospital with ongoing chest pain, shortness of breath, cough associated with sputum production. Also reported night sweats. Denied any fever or chills. She was afebrile with a WBC count elevated on admission 25 ,000 Ribs x-ray showed, Low lung volumes with basilar atelectasis with right-sided effusion. No fractures are seen. CT on admission 11/08 1. Right-sided pleural effusion with near-complete right lower lobe collapse. Moderate right middle lobe collapse, and mild right upper lobe collapse. Effusion is indeterminate in etiology. 2. Indeterminate solitary 6 mm pulmonary nodules, other nodules in the collapsed portions of the right lung are not excluded. 3. Small indeterminate mediastinal nodes. -CT-guided thoracocentesis and right side pigtail catheter placement- 11/11/2016 -status post placement of a second pigtail catheter in the anterior collection following CTscan Drains have minimal output and will be removed today -Right lower pleural fluid collection-anaerobes and alpha strep, Pleural fluid cytology, - f/u- NO MALIGNANCY CT of the chest November 22 1. The empyema is not significantly changed in appearance compared to 11/18/2016. The pigtail drainage catheters remain in satisfactory position. 2. Persistent compressive atelectasis and/or consolidation in the right middle and lower lobes, similar in appearance compared to 11/18/2016. 3. The mediastinal and right hilar lymphadenopathy is unchanged, likely reactive to the pulmonary/pleural disease. 4. There are a few new patchy groundglass opacities in the left upper lobe from new pneumonitis and/or atelectasis. Multilobar Community-acquired pneumonia/acute hypoxic respiratory insufficiency S/p indwelling 2 pleural catheter - anterior and posterior. to be removed today * unasyn day 12 for alpha strep and anaerobes will change to PO Augmentin for 4 to 6 wks after discussing with ID * leukocytosis 13.0 * Following ID and Pulm Reccomendations * Maintain oxygen saturation greater than 90%, supplemental oxygen if necessary * Monitor closely for worsening leukocytosis, fever, shortness of breath * Robutussin with codeine and mucinex for cough * Total respiratory care, Nebulizer and inhaler treatments * Pain management * Blood culture and urine culture were sent 11/18. No growth so far.will follow up Right-sided pleural effusion/ empyema/collapse * Right-sided pleural effusion most likely from pnemonia. Malignancy was ruled out * minimal output from the pigtail catheters. * continue unasyn DAY 12 * Pulm, ID and thorcic surgery on board * tubes were not removed yesterday, planning on removing the tubes today, have talked to surgical PA awaiting cardiothoracic surgery reccs. According to pulm note, Dr marie has talked to CT surgery and they will remove the pigtail cathers today. * will monitor for 24h after pigtail catheters removal before discharging * patient will require a follow-up CT scan in 4 weeks Right lung nodule Indeterminate solitary 6 mm pulmonary nodules, other nodules in the collapsed portions of the right lung are not excluded. Small indeterminate mediastinal nodes. * will need follow up Oral thrush pt developed oral thrush likely to antibiotic use, improving today * nystatin swish and spit for 1 week Diarrhea Patient had 4 episodes of loose stool yesterday. Pt states it is better today stool culture and c.diff toxin NEGATIVE Hypertension Continue home medication of amlodipine 5 mg Continue home medications lisinopril 10 mg Hypothyroidism Continue home medication levothyroxine 50 g daily Smoker Patient continues to smoke half pack every day Smoking cessation provided Nicotine patch DVT prophylaxis alps heparin Full code Pain pathway Tylenol Motrin and morphine Heart healthy diet Problem List: 1. Pneumonia 2. Lung collapse 3. Pleural effusion Pain Ratin Pain Location: right mid lower back Pain Goal: Pain 4 or less Pain Plan: motrin anf tynelol Tomorrow's Labs & Rationales: cbc bep DVT/Prophylaxis: mechanical, pharmacological Consulting Request: 1 Consulting Specialty: Pulmonary Disease Consulting Physician: Dr woo and dr marie Consulting Request: 2 Consulting Specialty: Infectious Disease Consulting Physician: Dr Thomas Consulting Request: 3 Consulting Specialty: Thoracic/Vascular Surgery Discharge Plan Discharge Disposition: home Stable for Discharge? Yes Anticipated Discharge (Day): tomorrow
[2016-11-21 08:31] LABS: ABSOLUTE BASOPHIL COUNT 0 /CUMM (0.0-0.2); ABSOLUTE EOSINOPHIL COUNT 0.1 /CUMM (0.0-0.7); ABSOLUTE GRANULOCYTE CT 9.8 /CUMM (1.4-6.5); ABSOLUTE MONOCYTE COUNT 0.9 /CUMM (0.10-0.60); BASOPHIL % 0.3 % (0.0-2.0); EOSINOPHIL % 1.1 % (0-5); GRANULOCYTE % 75.8 % (42.2-75.2); HEMATOCRIT 36.4 % (37-47); MEAN CORPUSCULAR HGB 28.4 PG (27.0-31.0); MEAN CORPUSCULAR HGB CONC 33.2 G/DL (33.0-37.0); MEAN CORPUSCULAR VOLUME 85.3 FL (81.0-99.0); MEAN PLATELET VOLUME 7.7 FL (7.4-10.4); PLATELET COUNT 675 /CUMM (130-400); RBC DISTRIBUTION WIDTH 13.8 % (11.5-14.5); RED BLOOD CELL CT 4.27 /CUMM (4.20-5.40)
--- NOTE | 2016-11-21 10:24 | PN- Pulmonary ---
Subjective HPI/Critical Care Issues: The patient is awake and alert. She is feeling much improved overall. She has no respiratory symptoms whatsoever. She denies any shortness of breath, cough, chest congestion or significant sputum production. She offers no complaints today. She is afebrile and her white blood cell count is down to 13,000. Objective Current Medications: Current Medications Sig/Cherry Start time Last Medication Dose Route Stop Time Status Admin Acetaminophen 650 MG Q6P PRN 11/08 2300 AC PO Albuterol Sulfate 3 ML BID 11/09 1137 AC 11/21 INH 0835 Amlodipine Besylate 5 MG DAILY 11/09 1000 AC 11/21 PO 0932 Ampicillin Sodium/ 3,000 MG Q6 11/19 0600 AC 11/21 Sulbactam Sodium IV 0630 Sodium Chloride 100 ML Docusate Sodium 100 MG DAILY NEEDED PRN 11/10 1100 AC 11/10 PO 1424 Guaifenesin 600 MG Q12 11/13 1030 AC 11/21 PO 0932 Guaifenesin/ 10 ML Q6 11/12 1000 AC 11/21 Dextromethorphan PO 0630 Heparin Sodium 5,000 UNIT Q8 11/18 0954 AC 11/21 (Porcine) SC 0630 Ibuprofen 600 MG .STK-MED ONE 11/20 1241 DC PO 11/20 1242 Ibuprofen 600 MG Q6P PRN 11/08 2300 AC 11/20 PO 2327 Levothyroxine Sodium 0.05 MG DAILY AC 11/09 0700 AC 11/21 PO 0630 Lisinopril 20 MG DAILY 11/18 1000 AC 11/21 PO 0933 Morphine Sulfate 2 MG Q4 HRS NEEDED PRN 11/09 1815 AC 11/11 IV 0143 Nystatin 5 ML 4 TIMES/DAY 11/19 1050 AC 11/21 PO 0933 Polyethylene Glycol 17 GM DAILY PRN 11/10 1100 AC 11/10 PO 1424 Vital Signs & I&O Last 24 Hrs of Vitals and I&O: Vital Signs Date Time Temp Pulse Resp B/P B/P Pulse O2 O2 Flow FiO2 Mean Ox Delivery Rate 11/21 932 88 128/74 11/21 0932 88 128/74 / 0837 97 Room Air Room Air 11/21 0800 Room Air 11/21 0638 98.0 80 18 136/74 96 Room Air 07/06 0000 Room Air 11/20 2231 98.8 93 19 148/60 94 Room Air 11/20 2125 95 Room Air 11/20 1600 Room Air 11/20 1441 98.5 101 18 120/70 94 Room Air Intake & Output 11/21 1600 11/21 0800 07/ 0000 Intake Total 630 390 Output Total 800 300 Balance -170 90 Intake, IV 150 150 Intake, Oral 480 240 Output, Urine 800 300 Exam General Appearance: alert, awake, comfortable Head: atraumatic, normal appearance Neck: supple Respiratory: lungs clear Cardiovascular: regular rate/rhythm Abdomen: normal bowel sounds, soft, non-tender Extremities: no edema Skin: intact, normal color, warm/dry Results Last 24 Hrs of Lab Results: Laboratory Tests 11/21/16 0738: Anion Gap 9, Estimated GFR > 60, BUN/Creatinine Ratio 16.7, CBC w Diff NO MAN DIFF REQ, RBC 4.27, MCV 85.3, MCH 28.4, RDW 13.8, MPV 7.7, Gran % 75.8 H, Lymphocytes % 15.8 L, Monocytes % 7.0, Eosinophils % 1.1, Basophils % 0.3, Absolute Granulocytes 9.8 H, Absolute Lymphocytes 2.0, Absolute Monocytes 0.9 H, Absolute Eosinophils 0.1, Absolute Basophils 0, PUBS MCHC 33.2 Impression/Plan Impression/Plan Impression/Plan: 1. Right-sided empyema, pleural fluid cultures positive for alpha strep. The patient remains on IV Unasyn for anaerobic coverage. The patient has no drainage from either chest tube site and she continues to improve. 2. Tobacco use disorder. 3. Multiple comorbidities including hypertension, hypothyroidism, obesity and right ear deafness. Recommendations: * Discontinue both chest tubes and monitor patient's respitory status. I discussed this with both CT surgery and ID, all are in agreement. Surgery will discontinue the chest tubes. * Continue nebs/TRC. * Continue IV Unasyn as recommended by ID. Will pattern changer and repairer to Augmentin when cleared by ID, and will continue the antibiotic course for an additional 2-[address] Ruggiero. * The patient will require a follow-up CT scan in 4 weeks, which I will order. * Continue home medications as per the primary team. * Continue all supportive care. * Increase activity. * DVT prophylaxis at all times. * Anticipated discharge for tomorrow if no issues after the chest tubes have been removed.
--- NOTE | 2016-11-21 12:49 | PN- Thoracic Surgery ---
See Addendum Subjective Subjective: pt feeling well, no fever, minimal cough, no sob. Objective Vital Signs and I&Os Vital Signs Date Time Temp Pulse Resp B/P B/P Pulse O2 O2 Flow FiO2 Mean Ox Delivery Rate 11/21 932 88 128/74 11/21 0932 88 128/74 11/21 0837 97 Room Air Room Air 11/21 0800 Room Air 11/21 0638 98.0 80 18 136/74 96 Room Air 11/21 0000 Room Air 11/20 2231 98.8 93 19 148/60 94 Room Air 11/20 2125 95 Room Air / 1600 Room Air 11/20 1441 98.5 101 18 120/70 94 Room Air Intake & Output 11/21 0800 11/21 0000 11/20 1600 11/20 0800 / 0000 Intake Total 630 390 600 Output Total 800 300 625 20 Balance -170 90 600 -625 -20 Intake, IV 150 150 Intake, Oral 480 240 600 Output, Chest 0 Tube Drainage Output, 20 Drainage Output, Urine 800 300 625 Physical Exam: wdwn aox3, nad Heart:RRR no murmur Resp:mild crackles and decreased lung sounds R side. L - CTA drain sites CDI R side chest ant and post. Assessment/Plan Assessment/Plan admission for RML/RLL Pneumonia, Empyema, Lung collapse, on unasyn, 2 pigtail cath to R side chest, 1 anterior and 1 posterior with minimal drainage, pt slowly improving. Both catheters were removed by myself at the bedside without complications. occulsive dressing with xerofoarm applied. Pt tolerated well without complications. Plan for DC tomorrow on abx. Please call with questions.
--- NOTE | 2016-11-21 12:51 | NUR ---
SURGICAL PA DEBBIE LAYNE REMOVED CHEST TUBES AT BEDSIDE AT 1245. PT TOLERATED WELL, WILL MONITOR.
[2016-11-21 14:05] VITALS: BP 130/78
[2016-11-21] MEDS ORDERED: AUGMENTIN 875-1 EACH PO (15:47)
[2016-11-21] MEDS ORDERED: MICONAZOLE NITR45 GM VAG (16:14)
--- NOTE | 2016-11-21 17:54 | PN- Infect Dx ---
Subjective Subjective: Afebrile. She feels well with no complaints status post removal of both pigtail catheters earlier today. Objective Last 24 Hrs of Vital Signs/I&O Vital Signs Date Time Temp Pulse Resp B/P B/P Pulse O2 O2 Flow FiO2 Mean Ox Delivery Rate 11/21 1642 96 Room Air Room Air 11/21 1405 98.7 93 18 130/78 96 Room Air 11/21 0933 88 128/74 11/21 0932 88 128/74 11/21 0837 97 Room Air Room Air 11/21 0800 Room Air 11/21 0638 98.0 80 18 136/74 96 Room Air 11/21 0000 Room Air 11/20 2231 98.8 93 19 148/60 94 Room Air 11/20 2125 95 Room Air Intake & Output 11/21 1600 11/21 0800 11/21 0000 Intake Total 1000 630 390 Output Total 800 300 Balance 1000 -170 90 Intake, IV 200 150 150 Intake, Oral 800 480 240 Output, Urine 800 300 Physical Exam Other Physical Findings: She appears comfortable in no acute distress Lungs are clear Results Last 24 Hours of Lab Results: Laboratory Tests 11/21 737 Chemistry Sodium (137 - 145 mmol/L) 140 Potassium (3.5 - 5.1 mmol/L) 5.1 Chloride (98 - 107 mmol/L) 104 Carbon Dioxide (22 - 30 mmol/L) 26 Anion Gap (5 - 16) 9 BUN (7 - 17 mg/dL) 10 Creatinine (0.5 - 1.0 mg/dL) 0.6 Estimated GFR (>60 ml/min) > 60 BUN/Creatinine Ratio (7 - 25 %) 16.7 Hematology CBC w Diff NO MAN DIFF REQ WBC (4.8 - 10.8 /CUMM) 13.0 H RBC (4.20 - 5.40 /CUMM) 4.27 Hgb (12.0 - 16.0 G/DL) 12.1 Hct (37 - 47 %) 36.4 L MCV (81.0 - 99.0 FL) 85.3 MCH (27.0 - 31.0 PG) 28.4 RDW (11.5 - 14.5 %) 13.8 Plt Count (130 - 400 /CUMM) 675 H MPV (7.4 - 10.4 FL) 7.7 Gran % (42.2 - 75.2 %) 75.8 H Lymphocytes % (20.5 - 51.1 %) 15.8 L Monocytes % (1.7 - 9.3 %) 7.0 Eosinophils % (0 - 5 %) 1.1 Basophils % (0.0 - 2.0 %) 0.3 Absolute Granulocytes (1.4 - 6.5 /CUMM) 9.8 H Absolute Lymphocytes (1.2 - 3.4 /CUMM) 2.0 Absolute Monocytes (0.10 - 0.60 /CUMM) 0.9 H Absolute Eosinophils (0.0 - 0.7 /CUMM) 0.1 Absolute Basophils (0.0 - 0.2 /CUMM) 0 PUBS MCHC (33.0 - 37.0 G/DL) 33.2 Last 24 Hours of Javon Results: Blood cultures November 17 negative Assessment/Plan Impression: Doing well with temperatures remaining normal and white blood cell count decreasing on Unasyn now Day 10 of treatment for empyema of the right chest secondary to alpha strep and anaerobes status post removal of both pigtail catheters earlier today. Suggestion: 1. Continue Unasyn, but can change to Augmentin 875 mg po every 12 hours if her white blood cell count continues to decrease to plan on an additional 2-4 weeks of treatment, which can be guided by the results of a follow-up CT scan as an outpatient
[2016-11-21 22:30] VITALS: BP 150/80
[2016-11-22 06:54] VITALS: BP 160/90
--- NOTE | 2016-11-22 07:17 | PN- Housestaff ---
[facility] 11/22/16 0717: Subjective Follow-up For: EMPYEMA Subjective: Pt fells well today. wbc down. ready for dc Review of Systems Constitutional: Reports: no symptoms. Objective Last 24 Hrs of Vital Signs/I&O Vital Signs Date Time Temp Pulse Resp B/P B/P Pulse O2 O2 Flow FiO2 Mean Ox Delivery Rate 11/22 0826 88 150/88 11/22 0825 88 150/88 11/22 0800 Room Air 11/22 0654 98.8 84 20 160/90 95 Room Air 11/22 0000 Room Air 11/21 2230 99.1 91 20 150/80 95 Room Air Intake & Output 11/22 1600 11/22 0800 11/22 0000 Intake Total 450 250 Output Total Balance 450 250 Intake, IV 250 Intake, Oral 200 250 Physical Exam General Appearance: Alert, Oriented X3, Cooperative Assessment/Plan Assessment: Ms. Haney is 51 year old female presented to ED with chief complaint of right lateral neck and thoracic chest pain for 5 days. PMH significant for hypertension, hypothyroidism, current smoker, right ear nerve deafness, diverticulitis status post colon resection. Patient presented to Hospital with ongoing chest pain, shortness of breath, cough associated with sputum production. Also reported night sweats. Denied any fever or chills. She was afebrile with a WBC count elevated on admission 25 ,000 -CT-guided thoracocentesis and right side pigtail catheter placement- 11/11/2016 -status post placement of a second pigtail catheter in the anterior collection following CTscan Drains have minimal output and will be removed today -Right lower pleural fluid collection-anaerobes and alpha strep, Pleural fluid cytology, - f/u- NO MALIGNANCY patient ready for dc today. issues below resolved. switching to po abs per Dr. Ruggiero Multilobar Community-acquired pneumonia/acute hypoxic respiratory insufficiency S/p indwelling 2 pleural catheter - anterior and posterior. to be removed today * Following ID and Pulm Reccomendations * Maintain oxygen saturation greater than 90%, supplemental oxygen if necessary * Monitor closely for worsening leukocytosis, fever, shortness of breath * Robutussin with codeine and mucinex for cough * Total respiratory care, Nebulizer and inhaler treatments * Pain management * Blood culture and urine culture were sent 11/18. No growth so far.will follow up Right-sided pleural effusion/ empyema/collapse * Right-sided pleural effusion most likely from pnemonia. Malignancy was ruled out * minimal output from the pigtail catheters. * Pulm, ID and thorcic surgery on board * tubes were not removed yesterday, planning on removing the tubes today, have talked to surgical PA awaiting cardiothoracic surgery reccs. According to pulm note, Dr marie has talked to CT surgery and they will remove the pigtail cathers today. * will monitor for 24h after pigtail catheters removal before discharging * patient will require a follow-up CT scan in 4 weeks Right lung nodule Indeterminate solitary 6 mm pulmonary nodules, other nodules in the collapsed portions of the right lung are not excluded. Small indeterminate mediastinal nodes. * will need follow up Oral thrush pt developed oral thrush likely to antibiotic use, improving today * nystatin swish and spit for 1 week Diarrhea Patient had 4 episodes of loose stool yesterday. Pt states it is better today stool culture and c.diff toxin NEGATIVE Hypertension Continue home medication of amlodipine 5 mg Continue home medications lisinopril 10 mg Hypothyroidism Continue home medication levothyroxine 50 g daily Smoker Patient continues to smoke half pack every day Smoking cessation provided Nicotine patch DVT prophylaxis alps heparin Full code Pain pathway Tylenol Motrin and morphine Heart healthy diet Problem List: 1. Pneumonia 2. Lung collapse Pain Ratin Pain Location: none Pain Goal: Remain pain free Pain Plan: none Tomorrow's Labs & Rationales: none DVT/Prophylaxis: mechanical Consulting Request: Consulting Specialty: Thoracic/Vascular Surgery Consulting Physician: Dr William KIM MD,JOI 11/22/16 1244: Attending MD Review Statement Attending Statement Attending MD Statement: examined this patient, discuss w/resident/PA/TODDLER CAREGIVER, agreed w/resident/PA/TODDLER CAREGIVER, reviewed EMR data (avail), discussed with nursing, discussed with case mgmt, reviewed images, amended to note Attending Assessment/Plan: Patient seen and examined, feeling overall much better. By the 10th count has decreased. Chest tubes were removed yesterday. Patient continued to improve and did not have any fever spikes. She is medically stable for discharge home today. She will be discharged on oral antibiotics for 2 more weeks CAT scan indicated. If she continues to be more antibiotics than it can be done as an outpatient. Patient will follow up with pulmonology and a primary care doctor as an outpatient.
[2016-11-22] MEDS ORDERED: AUGMENTIN 875-1 EACH PO ×2 (08:00→13:27)
[2016-11-22 08:22] LABS: ABSOLUTE BASOPHIL COUNT 0 /CUMM (0.0-0.2); ABSOLUTE EOSINOPHIL COUNT 0.2 /CUMM (0.0-0.7); ABSOLUTE GRANULOCYTE CT 9.3 /CUMM (1.4-6.5); ABSOLUTE MONOCYTE COUNT 0.9 /CUMM (0.10-0.60); BASOPHIL % 0.4 % (0.0-2.0); EOSINOPHIL % 1.2 % (0-5); GRANULOCYTE % 75.2 % (42.2-75.2); HEMATOCRIT 36.6 % (37-47); MEAN CORPUSCULAR HGB CONC 32.6 G/DL (33.0-37.0); MEAN CORPUSCULAR VOLUME 85.8 FL (81.0-99.0); MEAN PLATELET VOLUME 8.1 FL (7.4-10.4); PLATELET COUNT 709 /CUMM (130-400); RBC DISTRIBUTION WIDTH 13.7 % (11.5-14.5); RED BLOOD CELL CT 4.27 /CUMM (4.20-5.40); WHITE BLOOD CELL COUNT 12.3 /CUMM (4.8-10.8)
[2016-11-22 08:26] VITALS: BP 150/88
[2016-11-22] MEDS ORDERED: DIFLUCAN150 M1 PO (13:22)
[2016-11-22] MEDS ORDERED: NYSTATIN100000 UNI PO (13:22)
[2016-11-22] MEDS ORDERED: MICONAZOLE NITR45 GM VAG (13:27)
== END 2016-11-22 14:00 | DRG 177 ==
LOC: ERH 15:45 → 2NA 20:00 → ERHI 20:00 → ENRESERV 22:07 → 2NA 23:07 → ENPENDDIS 11-22 13:29 → 2NA 11-22 14:00
PROVIDERS: Hospitalist; Physician Assistant; Student in an Organized Health Care Education/Training Program; ADMIT Student in an Organized Health Care Education/Training Program
PROC: 0W9930Z Drainage of Right Pleural Cavity with Drainage Device, Percutaneous Approach (ICD-10-PCS; principal; 2016-11-11)
PROC: 0W9930Z Drainage of Right Pleural Cavity with Drainage Device, Percutaneous Approach (ICD-10-PCS; 2016-11-15)
DX: J15.6 Pneumonia due to other Gram-negative bacteria (principal); J86.9 Pyothorax without fistula; B37.0 Candidal stomatitis; Z68.41 Body mass index [BMI] 40.0-44.9, adult; E66.01 Morbid (severe) obesity due to excess calories; K76.0 Fatty (change of) liver, not elsewhere classified; J98.19 Other pulmonary collapse; I10 Essential (primary) hypertension; E03.9 Hypothyroidism, unspecified; R91.8 Other nonspecific abnormal finding of lung field; F17.210 Nicotine dependence, cigarettes, uncomplicated; H91.91 Unspecified hearing loss, right ear; Z90.49 Acquired absence of other specified parts of digestive tract; R19.7 Diarrhea, unspecified; K42.9 Umbilical hernia without obstruction or gangrene; R09.02 Hypoxemia; K59.00 Constipation, unspecified; B95.1 Streptococcus, group B, as the cause of diseases classified elsewhere
CPT/HCPCS: 2NASP; 87075; 36415; 71100-RT; 74177; 77012; 81001; 82436; 87040; 87045; 87070; 87071; 87086; 87449; 87450; 88305; 93005; 93010; 96365; 96375; 96376; J0456; J0696; J1644; J2405; J2997; J3490; J7040